=== PATIENT | female | born 1950 | race Caucasian/White ===

== ENCOUNTER 2020-07-23 09:55 | Outpatient (REF) | payer MEDICARE, SELFPAY ==
[2020-07-23 12:03] LABS: Alanine Aminotransferase 11 U/L (0-31); Albumin Level 4.2 g/dL (3.5-5.0); Alkaline Phosphatase 81 U/L (39-117); Anion Gap 14 (12-20); Aspartate Amino Transferase 14 U/L (5-31); Bilirubin Total 0.6 mg/dL (0.0-1.0); Blood Urea Nitrogen 14 mg/dL (9-16); Calcium 9.2 mg/dL (8.4-10.2); Carbon Dioxide 25 mmol/L (22-29); Chloride 105 mmol/L (96-108); Cholesterol 304 mg/dL; Estimated Glomerular Filt Rate > 60; Glucose Fasting 114 mg/dL (60-99); HDL Cholesterol 68 mg/dL; LDL Cholesterol Calculated 199 mg/dl; Potassium 5.2 mmol/L (3.3-5.1); Sodium 139 mmol/L (135-145); Total Protein 7.4 g/dL (6.5-8.0); Triglycerides 185 mg/dL
[2020-07-23 12:07] LABS: Thyroid Stimulating Hormone 4.27 uIU/mL (0.32-4.0)
== END 2020-07-23 09:56 | disposition home or self-care (01) ==
LOC: HO.HMGCLDS 09:55
PROVIDERS: PCP Internal Medicine; Visit Provider Internal Medicine
DX: E03.9 Hypothyroidism, unspecified (principal); E78.00 Pure hypercholesterolemia, unspecified
CPT/HCPCS: 36415; 80053; 80061; 84443

== ENCOUNTER 2021-01-29 09:15 | Outpatient (REF) | payer MEDICARE, SELFPAY ==
[2021-01-29 12:11] LABS: Alanine Aminotransferase 13 U/L (0-31); Alkaline Phosphatase 95 U/L (39-117); Anion Gap 16 (12-20); Aspartate Amino Transferase 17 U/L (5-31); Bilirubin Total 0.5 mg/dL (0.0-1.0); Blood Urea Nitrogen 16 mg/dL (9-16); Calcium 9.9 mg/dL (8.4-10.2); Carbon Dioxide 27 mmol/L (22-29); Chloride 103 mmol/L (96-108); Cholesterol 250 mg/dL; Estimated Glomerular Filt Rate > 60; Glucose Fasting 108 mg/dL (60-99); HDL Cholesterol 60 mg/dL; LDL Cholesterol Calculated 155 mg/dl; Potassium 4.8 mmol/L (3.3-5.1); Sodium 141 mmol/L (135-145); Total Protein 6.9 g/dL (6.5-8.0); Triglycerides 176 mg/dL
[2021-01-29 12:34] LABS: Vitamin D 25-OH Total 25.6 ng/mL (>30)
== END 2021-01-29 09:16 | disposition home or self-care (01) ==
LOC: HO.HMGCLDS 09:15
PROVIDERS: PCP Internal Medicine; Visit Provider Internal Medicine
DX: E78.00 Pure hypercholesterolemia, unspecified (principal); E03.9 Hypothyroidism, unspecified; E55.9 Vitamin D deficiency, unspecified
CPT/HCPCS: 36415; 80053; 80061; 82306; 84443

== ENCOUNTER 2021-04-11 08:27 | Outpatient (REF) | payer MEDICARE, SELFPAY ==
--- NOTE | ~2021-04-11 | MM_ITS ---
EXAMINATION: MM SCREENING DIGITAL BREAST TOMOSYNTHESIS, BILATERAL CLINICAL INFORMATION: Screening. Asymptomatic. The lifetime risk of breast cancer based on the Tyrer-Cuzick Model is 5%. COMPARISON: Mammography: 04/21/2019, 02/20/2018, 07/14/2016 TECHNIQUE: Digital breast tomosynthesis is performed in both the craniocaudal and mediolateral oblique views along with computer-aided detection (CAD). Synthesized 2D images are generated from the tomosynthesis. FINDINGS: There are scattered areas of fibroglandular density (ACR BI-RADS breast composition Category b). There are no significant masses, abnormal calcifications, or other abnormalities. No developing density or architectural abnormality. No significant changes. MM/MM tomosynthesis screening BI IMPRESSION: No mammographic evidence of malignancy. ASSESSMENT: BI-RADS 2: Benign RECOMMENDATION: Routine annual mammography screening. This patient's information was entered into a reminder system with a target due date for their next mammogram.
== END 2021-04-11 08:28 | disposition home or self-care (01) ==
LOC: HO.MAMMO 08:27
PROVIDERS: PCP Obstetrics & Gynecology; Visit Provider Internal Medicine
DX: Z12.31 Encounter for screening mammogram for malignant neoplasm of breast (principal)
CPT/HCPCS: 77063; 77067

== ENCOUNTER 2021-05-04 08:41 | Outpatient (REF) | payer MEDICARE, SELFPAY ==
--- NOTE | ~2021-05-04 | MM_ITS ---
EXAMINATION: BONE DENSITOMETRY CLINICAL INDICATION: Menopause. COMPARISON: Previous BD dated 09/19/2013 and baseline BD dated 12/03/2008. TECHNIQUE: Using a Arara DXA System (software version: 13.1) manufactured by [employer], dual-energy x-ray absorptiometry was performed of the lumbar spine and left hip. The images are of good technical quality. Summary results are attached. FINDINGS: AP SPINE L1-L4: Current: BMD 1.330 g/cm2, Z-score 2.2, T-score 1.2, normal, 5.9% increase from previous, 15.7% increase from baseline (<5% change is not significant). Prior: BMD 1.256 g/cm2. Baseline: BMD 1.150 g/cm2. LEFT FEMUR, NECK: Current: BMD 0.872 g/cm2, Z-score 0.1, T-score -1.2, osteopenia. Prior: BMD 0.943 g/cm2. Baseline: BMD 0.903 g/cm2. LEFT FEMUR, TOTAL: Current: BMD 0.955 g/cm2, Z-score 0.7, T-score -0.4, normal, 1.2% decrease from previous, 0.1% decrease from baseline (<5% change is not significant). Prior: BMD 0.967 g/cm2. Baseline: BMD 0.956 g/cm2. IDENTIFIED RISK FACTORS: Menopause. HISTORY OF FRACTURE: None listed. MEDICATIONS: Calcium, vitamin D. MM/XR DEXA axial skeleton IMPRESSION: 1. DIAGNOSIS: Osteopenia based on the lowest T-score value of -1.2 in the femoral neck applying World Health Organization criteria. 2. 10-YEAR FRACTURE RISK PREDICTION, FRAX: Major osteoporotic fracture (clinical spine, forearm, hip or shoulder) 9.5%. Hip fracture 1.3%. 3. Treatment Recommendations: NOF guidelines recommend consideration for treatment in postmenopausal women and men age 50 and older presenting with the following: -A hip or vertebral (clinical or morphometric) fracture. -T-score less than or equal to -2.5 at the femoral neck or spine after appropriate evaluation to exclude secondary causes. -Low bone mass at the hip or spine and a 10-year fracture probability by FRAX of greater than or equal to 3% for hip fracture or greater than or equal to 20% for major osteoporotic fracture based on the [place] adapted WHO algorithm. 4. Other Recommendations: All treatment decisions require clinical judgment and consideration of individual patient factors, including patient preferences, comorbidities, previous drug use, risk factors not captured in the FRAX model (e.g. frailty, falls, vitamin D deficiency, increased bone turnover, interval significant decline in bone density) and possible under or overestimation of fracture risk by FRAX. Additional medical evaluation for secondary cause of low bone mineral density may be appropriate. FUTURE SCAN RECOMMENDATION: People with diagnosed cases of osteoporosis or at high risk for fracture should have regular bone mineral density tests. For patients eligible for Medicare, routine testing is allowed once every 2 years. The testing frequency can be increased to one year for patients who have rapidly progressing disease, those who are receiving or discontinuing medical therapy to restore bone mass, or have additional risk factors.
== END 2021-05-04 08:42 | disposition home or self-care (01) ==
LOC: HO.MAMMO 08:41
PROVIDERS: PCP Internal Medicine; Visit Provider Obstetrics & Gynecology
DX: Z13.820 Encounter for screening for osteoporosis (principal); Z78.0 Asymptomatic menopausal state
CPT/HCPCS: 77080

== ENCOUNTER 2021-08-02 10:52 | Outpatient (REF) | payer MEDICARE, SELFPAY ==
[2021-08-02 13:47] LABS: MANUAL DIFF FLAG NO
[2021-08-02 13:50] LABS: Basophils Absolute Auto 0.1 X10*3/uL (0.0-0.2); Basophils Percent Auto 0.7 % (0-2); Eosinophils Absolute Auto 0.1 X10*3/uL (0.0-0.4); Eosinophils Percent Auto 1.1 % (0-4); Hemoglobin 14.7 g/dl (12.0-16.0); Imm Gran Abs Auto 0.03 X10*3/uL (0.00-0.03); Imm Gran Pct Auto 0.4 % (0.0-0.4); Lymphocytes Absolute Auto 2.5 X10*3/uL (1.2-4.9); Lymphocytes Percent Auto 30.7 % (20-40); Mean Corpuscular Hemoglobin 28.8 pg (27.0-33.0); Mean Corpuscular Volume 90.2 fL (80.0-98.0); Mean Platelet Volume 11.4 fL (9.4-12.3); Monocytes Absolute Auto 0.6 X10*3/uL (0.1-1.2); Monocytes Percent Auto 7.6 % (2-11); Neutrophils Absolute Auto 4.9 x10*3/uL (2.0-8.3); Neutrophils Percent Auto 59.5 % (45-73); Platelet Count 339 X10*3/uL (160-400); Red Cell Distribution Width 13.4 % (11.0-16.0); White Blood Count 8.3 X10*3/uL (4.8-10.8)
[2021-08-02 14:20] LABS: Alanine Aminotransferase 15 U/L (0-31); Albumin Level 4.1 g/dL (3.5-5.0); Alkaline Phosphatase 90 U/L (39-117); Anion Gap 14 (12-20); Aspartate Amino Transferase 15 U/L (5-31); Bilirubin Total 0.7 mg/dL (0.0-1.0); Blood Urea Nitrogen 15 mg/dL (9-16); Calcium 9.8 mg/dL (8.4-10.2); Carbon Dioxide 26 mmol/L (22-29); Chloride 104 mmol/L (96-108); Cholesterol 249 mg/dL; Estimated Glomerular Filt Rate > 60; Glucose Fasting 113 mg/dL (60-99); HDL Cholesterol 69 mg/dL; LDL Cholesterol Calculated 149 mg/dl; Potassium 5.2 mmol/L (3.3-5.1); Sodium 139 mmol/L (135-145); Total Protein 7.3 g/dL (6.5-8.0); Triglycerides 157 mg/dL
[2021-08-02 14:30] LABS: Thyroid Stimulating Hormone 0.52 uIU/mL (0.32-4.0); Vitamin D 25-OH Total 27.9 ng/mL (>30)
== END 2021-08-02 10:53 | disposition home or self-care (01) ==
LOC: HO.HMGCLDS 10:52
PROVIDERS: Visit Provider Internal Medicine
DX: E03.9 Hypothyroidism, unspecified (principal); E78.00 Pure hypercholesterolemia, unspecified; F32.9 Major depressive disorder, single episode, unspecified; G43.109 Migraine with aura, not intractable, without status migrainosus; E55.9 Vitamin D deficiency, unspecified
CPT/HCPCS: 36415; 80053; 80061; 82306; 84443; 85025

== ENCOUNTER → 2021-10-03 13:56 | Outpatient (BNVA) | payer MEDICARE, SELFPAY | PROVIDERS: PCP Internal Medicine; Referring Provider Internal Medicine; Visit Provider Internal Medicine Cardiovascular Disease | DX: I48.19 Other persistent atrial fibrillation (principal); R06.02 Shortness of breath | CPT/HCPCS: 93005; 99202 ==

== ENCOUNTER → 2021-10-07 07:29 | Outpatient (REF) | payer MEDICARE, SELFPAY ==
--- NOTE | 2021-10-07 07:36 | CA_ITS ---
Transthoracic Echocardiogram Patient (Last, First, Middle): Davida Taylor, Gender: Female Date of : 1950 Age: 71 Procedure Date: 10/07/2021 Procedure Type: Transthoracic Echocardiogram Location: OP Height: 172.72 cm Weight: 87.54 kg BSA: 2.01 m2 Heart Rate: bpm BP: 120 / 80 mmHg Store Consultant: LISA Referring MD: Tim Casas MD Rn Emergency Room: Tim Casas MD Symptoms: R06.02 - Shortness of breath Study Quality: Adequate ECG Rhythm: Sinus Conclusions: - 1. Normal LV systolic function with normal filling pressures 2. Moderate mitral and calcification with normal cardiac valvular Dopplers 3. No gross pericardial effusion Findings Left Ventricle Normal left ventricular size, thickness, and systolic function. The visually estimated ejection fraction is between 60-65%. Diastolic function is indeterminate on the basis of available data. Normal left ventricular filling pressures. Right Ventricle Normal right ventricular cavity size and systolic function. Atria The left atrium is likely dilated. There is no evidence of interatrial shunt. The right atrium is likely dilated. Aortic Valve The aortic valve structure and function is likely normal. There is no aortic valve stenosis. There is no aortic valve regurgitation. Mitral Valve There is mild anterior and moderate posterior mitral leaflet thickening. There is moderate mitral annular calcification. There is no mitral valve regurgitation. There is no mitral valve stenosis. Pulmonic Valve The pulmonic valve was not well visualized. Tricuspid Valve Likely normal tricuspid valve structure and function. Tricuspid regurgitation envelope is inadequate for calculation of right ventricular systolic pressure. Great Vessels All visible segments of the aorta are normal in size. The pulmonary artery was not well visualized. Venous The inferior vena cava is normal in size and collapses greater than 50% with inspiration. Pericardium/Pleural There is no evidence of pericardial effusion. Prior Study Comparison No prior study available for comparison. Measurements 2D Linear Measurements IVSd: 0.78 0.6-0.9/0.6-1.0 cm LVIDd: 3.90 3.9-5.3/4.2-5.9 cm LVIDd Index: 1.94 2.4-3.2/2.2-3.1 cm/m2 LVIDs: 2.64 2.0-3.6 cm LVPWd: 0.83 0.7-1.1 cm LA Diam: 4.10 2.7-3.8/3.0-4.0 cm LAIDs Index: 2.04 1.5-2.3 cm/m2 LV Mass: 112.66 67-162/88-224 g LV Mass Index: 56.05 43-95/49-115 g/m2 LVOT Diam: 1.90 3.0+(-)1.3 cm 2D Systolic Function EF 4C: 68.60 >55% EF 2C: 59.60 >55% EF BiP: 62.70 >55% Mitral Valve MV Pk E: 1.07 MV Decel Time: 165.00 E'Lateral: 15.80 E'Medial: 10.30 E/E' Med: 10.40 E/E' Lat: 6.80 PHT: 48.00 MVA PHT: 4.58 Decel Sheridan: 6.47 Aortic Valve AoV Pk Moo: 1.28 AoV Mn Moo: 0.94 AoV VTI: 0.26 AoV Pk Grad: 7.00 Aov Mn Grad: 4.00 CAROLYN Cont.VTI: 2.09 LVOT LVOT Pk Moo: 0.86 LVOT Mn Moo: 0.65 LVOT VTI: 0.19 LVOT Pk Grad: 3.00 LVOT Mn Grad: 2.00 LVOT Diam: 1.90 LVOT Area: 2.84 Diastolic Function MV Pk E: 1.07 E'Medial: 10.30 E/E' Med: 10.40 E' Laterial: 15.80 E/E' Lat: 6.80 Right Ventricle TAPSE (mm): 21.90 TVS' Moo: 8.50 Tricuspid Valve RA Press: 3.00 Great Vessels Aorta Sinus of Valsalva: 2.98 2.0-3.[address] Ridge: 2.64 1.7-3.4 cm Ao Asc: 3.30 2.1-3.4 cm Pulmonary Valve PV Pk Moo: 0.86 Peak PV Grad: 3.00 Updated in Other Vendor System with Status of Final Tim Casas MD electronically signed on 10/08/2021 2:17:35 PM with status of Final
--- NOTE | 2021-10-07 07:36 | HM_ITS ---
Conclusion: 1. Patient was monitor for total period of 2 days and 23 hours 2. Baseline rhythm is atrial fibrillation with average heart of 85 beats per minute with adequate rate control 3. No pauses or bradycardia noted 4. Rare PVCs noted 5. One patient reported event correlated with atrial fibrillation controlled ventricular response MTDD
== END ==
LOC: HO.CARD 07:29
PROVIDERS: PCP Internal Medicine; Visit Provider Internal Medicine Cardiovascular Disease
DX: I48.19 Other persistent atrial fibrillation (principal); R06.02 Shortness of breath
CPT/HCPCS: 93242; 93306

== ENCOUNTER → 2021-10-10 07:53 | Outpatient (REF) | payer MEDICARE, SELFPAY ==
--- NOTE | ~2021-10-10 | NM_ITS ---
Myocardial perfusion study Indication: Shortness of breath evaluate for myocardial ischemia Technique: The patient was brought in for a Lexiscan perfusion study on 10/10/2021. Patient performed low-level exercise and was injected 0.4 mg of Lexiscan intravenously. Within a minute of injection, 30 mCi of sestamibi was given intravenously. Images were obtained using the SPECT gamma camera interlaced with the gating device. Images were obtained in supine position. Resting perfusion study was performed on 10/11/2021. Patient was administered 30 mCi of sestamibi intravenously at rest. Images were then obtained in supine position. Images obtained with and without CT attenuation. Total DLP 95 mGy-cm. Images were processed with the software and compared side to side in short axis, horizontal long axis and vertical long axis views. Findings: The stress perfusion study showed non attenuated images show minimal reduction in the anterior wall. Remainder of the LV myocardium is normally perfused. Attenuation corrected images show overall normal uptake of radiotracer in all segments of LV myocardium. There is suggestion of left ventricle hypertrophy.. The gated study shows normal LV systolic function with calculated LVEF of greater than 70 %. LV cavity is normal in size. The gated study shows normal systolic wall thickening and contraction of segments. Resting study shows no change in perfusion pattern compared to stress perfusion study. Gating at rest reveals normal systolic wall motion with ejection fraction at 71%. The findings are consistent with normal myocardial perfusion. NM/NM jluis perf SPECT rest & str Impression: 1. Myocardial perfusion imaging study shows normal myocardial perfusion 2. Gated LVEF is greater than 70% 3. Transient ischemic dilatation not present EKG is nondiagnostic for ischemia
--- NOTE | 2021-10-10 07:55 | CA_ITS ---
Acquisition Time: 2021-10-10 08:06:05 Total Exercise Time: 00:02:00 Test Indications: Abnormal ECG Medications: SEE H Protocol: LEXISCAN Max HR: 113 BPM 76% of Pred: 147 BPM Max BP: 128/066 mmHG Max Work Load: 1.0 METS Pharmacological stress test with Lexiscan injection, while sitting and kicking her legs, with mild sob, no chest discomfort, without arrythmia, with normotensive response to injection, with nondiagnostic EKG for ischemia. Nuclear images pending. Test reviewed with Dr Baker. Referred By: Tim Casas Overread By: LEYLA WILKS
== END ==
LOC: HO.CARD 07:53
PROVIDERS: Visit Provider Internal Medicine
DX: R06.02 Shortness of breath (principal)
CPT/HCPCS: 78452; 93017; A9500; J0280; J2785

== ENCOUNTER → 2021-11-02 13:44 | Outpatient (BNVA) | payer MEDICARE, SELFPAY | PROVIDERS: PCP Internal Medicine; Referring Provider Internal Medicine; Visit Provider Internal Medicine Cardiovascular Disease | DX: I48.19 Other persistent atrial fibrillation (principal) | CPT/HCPCS: 99212 ==

== ENCOUNTER 2021-11-09 12:52 | Day surgery (SDC) | payer MEDICARE, SELFPAY ==
--- NOTE | 2021-11-08 10:43 | P.CONAN_ITS ---
Documented by User: Nayana Santo NP 11/08/21 10:46 HPI - Anesthesia Eval Consult details Narrative: 71yo F for Cardioversion *Multiple Med Allergies* PMFSH Active Problems Active Problems: All Active Problems (Updated 10/03/21 @ 14:32 by Tim Casas MD) Persistent atrial fibrillation (Acute) SOB (shortness of breath) on exertion (Acute) Past Medical History Medical History Persistent atrial fibrillation Family History Family History Father CAD (coronary artery disease) Afib Mother Afib Brother Afib Surgical History Surgical History History of colon resection Social History Social History Patient Tobacco Use Status: Former Tobacco user Advance Directives: No Advance Directives Information Provided: Yes Meds Allergies Allergy/AdvReac Type Severity Reaction Status Date / Time amoxicillin [From AUGMENTIN] Allergy Unknown SEVERE Unverified 02/12/20 17:43 SHARRON-RECTAL REDNESS,INFLAMMATION aspirin [ASPIRIN] Allergy Unknown FACIAL Unverified 02/12/20 17:43 SWELLING clavulanic acid Allergy Unknown SEVERE Unverified 02/12/20 17:43 [From AUGMENTIN] SHARRON-RECTAL REDNESS,INFLAMMATION ibuprofen Allergy Unknown anaphylaxis Verified 05/01/14 00:00 Iodinated Contrast Media Allergy Unknown RASH,SOB Unverified 02/12/20 17:43 [IV CONTRAST] [id number]-NSC-XgO Reductase Allergy Unknown MUSCLE Unverified 02/12/20 17:43 Inhibitor ACHING [[id number] REDUCTASE INHIBITOR] Sulfa (Sulfonamide Allergy Unknown RASH,SOB Unverified 02/12/20 17:43 Antibiotics) [SULFA (SULFONAMIDE ANTIBIOTICS)] animal dander Allergy Unknown Uncoded 05/01/14 00:00 IVP dye Allergy Unknown rash Uncoded 05/01/14 00:00 pollen Allergy Unknown Uncoded 05/01/14 00:00 shellfish Allergy Unknown breathing Uncoded 05/01/14 00:00 difficulty, rash sulfa Allergy Unknown breathing Uncoded 05/01/14 00:00 problems, angioedema Home Medications Medication Instructions Recorded Confirmed Last Taken Type albuterol sulfate 90 mcg/actuation 0 mcg inhalation 10/03/21 11/02/21 Unknown History aerosol inhaler clonazepam 0.5 mg tablet 0.25 mg PO BEDTIME 10/03/21 11/02/21 Unknown History fluticasone 250 mcg-salmeterol 50 1 ea PO BID 10/03/21 11/02/21 Unknown History mcg/dose blistr powdr for inhalation (Lisa Inhub) levothyroxine 175 mcg tablet 175 mcg PO DAILY 10/03/21 11/02/21 Unknown History pantoprazole 40 mg tablet,delayed 40 mg PO DAILY 10/03/21 11/02/21 Unknown History release sertraline 50 mg tablet 50 mg PO DAILY 10/03/21 11/02/21 Unknown History solifenacin 10 mg tablet 10 mg PO DAILY 10/03/21 11/02/21 Unknown History Exam Exam Date and Time: November 08, 2021 1043 Pertinent Lab Results Pertinent Lab Results: Laboratory Tests 08/02/21 08/02/21 11:01 11:01 WBC 8.3 Hgb 14.7 Hct 46.0 Plt Count 339 Sodium 139 Potassium 5.2 H Chloride 104 Carbon Dioxide 26 BUN 15 Creatinine 0.78 Narrative Narrative: EKG 09/2021 atrial fibrillation with heart rate of [address] T wave changes NM jluis perf SPECT rest & str 09/2021 Impression: ? 1.? Myocardial perfusion imaging study shows normal myocardial perfusion 2.? Gated LVEF is greater than 70% 3. Transient ischemic dilatation not present ? EKG is nondiagnostic for ischemia ECHO 09/2021 Conclusions: - 1.? Normal LV systolic function with normal filling pressures? 2.? Moderate mitral and calcification with normal cardiac? valvular Dopplers? 3. No gross pericardial effusion ? Findings Left Ventricle Normal left ventricular size, thickness, and systolic function. The visually estimated ejection fraction is between 60-65%.? Diastolic function is indeterminate on the basis of available data.? Normal left ventricular filling pressures. Holter 09/2021 Conclusion: 1. Patient was monitor for total period of 2 days and 23 hours 2. Baseline rhythm is atrial fibrillation with average heart of 85 beats per minute with adequate rate control 3. No pauses or bradycardia noted 4. Rare PVCs noted 5. One patient reported event correlated with atrial fibrillation controlled ventricular response Assessment and Plan Assessment Anesthesia Assessment: Chart Reviewed Documented by User: Jeannine Zelaya MD 11/09/21 13:20 [facility] Past Medical History Medical History Persistent atrial fibrillation Family History Family History Father CAD (coronary artery disease) Afib Mother Afib Brother Afib Family history of problems with anesthesia: No Surgical History Surgical History History of colon resection History of Problems with Anesthesia: No Social History Social History Patient Tobacco Use Status: Former Tobacco user Advance Directives: No Advance Directives Information Provided: Yes Meds Allergies Allergy/AdvReac Type Severity Reaction Status Date / Time amoxicillin [From AUGMENTIN] Allergy Unknown SEVERE Unverified 02/12/20 17:43 SHARRON-RECTAL REDNESS,INFLAMMATION aspirin [ASPIRIN] Allergy Unknown FACIAL Unverified 02/12/20 17:43 SWELLING clavulanic acid Allergy Unknown SEVERE Unverified 02/12/20 17:43 [From AUGMENTIN] SHARRON-RECTAL REDNESS,INFLAMMATION ibuprofen Allergy Unknown anaphylaxis Verified 05/01/14 00:00 Iodinated Contrast Media Allergy Unknown RASH,SOB Unverified 02/12/20 17:43 [IV CONTRAST] Uxzklfh-[id number]-PmO Reductase Allergy Unknown MUSCLE Unverified 02/12/20 17:43 Inhibitor ACHING [[id number] REDUCTASE INHIBITOR] Sulfa (Sulfonamide Allergy Unknown RASH,SOB Unverified 02/12/20 17:43 Antibiotics) [SULFA (SULFONAMIDE ANTIBIOTICS)] animal dander Allergy Unknown Uncoded 05/01/14 00:00 IVP dye Allergy Unknown rash Uncoded 05/01/14 00:00 pollen Allergy Unknown Uncoded 05/01/14 00:00 shellfish Allergy Unknown breathing Uncoded 05/01/14 00:00 difficulty, rash sulfa Allergy Unknown breathing Uncoded 05/01/14 00:00 problems, angioedema Home Medications Medication Instructions Recorded Confirmed Last Taken Type albuterol sulfate 90 mcg/actuation 0 mcg inhalation 10/03/21 11/02/21 Unknown History aerosol inhaler clonazepam 0.5 mg tablet 0.25 mg PO BEDTIME 10/03/21 11/02/21 Unknown History fluticasone 250 mcg-salmeterol 50 1 ea PO BID 10/03/21 11/02/21 Unknown History mcg/dose blistr powdr for inhalation (Lisa Inhub) levothyroxine 175 mcg tablet 175 mcg PO DAILY 10/03/21 11/02/21 Unknown History pantoprazole 40 mg tablet,delayed 40 mg PO DAILY 10/03/21 11/02/21 Unknown History release sertraline 50 mg tablet 50 mg PO DAILY 10/03/21 11/02/21 Unknown History solifenacin 10 mg tablet 10 mg PO DAILY 10/03/21 11/02/21 Unknown History Exam Airway Mallampati Class: II (Bride and caps laterally) TM Dist: >3cm Neck ROM: Full Heart: irreg Lungs: cta Assessment and Plan Assessment Anesthesia Assessment: Anesthesia Plan Discussed and Chart Reviewed Final Anesthetic Review Family History of Problems with Anesthesia: No History of Problems with Anesthesia: No NPO: Yes ASA Class: II Final Preanesthetic Review: No Changes in Pt Med Stat, Meds/Allgs Chart Reviewed and Consent Obtained/Reviewed Patient Risk: Intermediate Procedure Risk: Intermediate Anesthetic Plan Anesthetic Plan: MAC: Disposition: Standard PACU
[2021-11-09 13:11] VITALS: BP 149/98; PULSE 92; RESP 18; TEMP 36.7; O2SAT 97; BMI 30.1
--- NOTE | 2021-11-09 13:14 | MHC.SHP ---
Pre-Procedural Eval Section A Date of Service: 11/09/21 The patient is an INPATIENT: No Changes since office visit: Yes Patient answered all questions; No Cold of Flu in the past 2 weeks, No New Medical Problems and No Changes in Medication The History & Physical has been completed within 30 days and I have reviewed it.: Yes Section B Chief Complaint: a-fib Allergies: Allergies Allergy/AdvReac Type Severity Reaction Status Date / Time amoxicillin [From AUGMENTIN] Allergy Unknown SEVERE Unverified 02/12/20 17:43 SHARRON-RECTAL REDNESS,INFLAMMATION aspirin [ASPIRIN] Allergy Unknown FACIAL Unverified 02/12/20 17:43 SWELLING clavulanic acid Allergy Unknown SEVERE Unverified 02/12/20 17:43 [From AUGMENTIN] SHARRON-RECTAL REDNESS,INFLAMMATION ibuprofen Allergy Unknown anaphylaxis Verified 05/01/14 00:00 Iodinated Contrast Media Allergy Unknown RASH,SOB Unverified 02/12/20 17:43 [IV CONTRAST] Gijsili-KAT-OqV Reductase Allergy Unknown MUSCLE Unverified 02/12/20 17:43 Inhibitor ACHING [[id number] REDUCTASE INHIBITOR] Sulfa (Sulfonamide Allergy Unknown RASH,SOB Unverified 02/12/20 17:43 Antibiotics) [SULFA (SULFONAMIDE ANTIBIOTICS)] animal dander Allergy Unknown Uncoded 05/01/14 00:00 IVP dye Allergy Unknown rash Uncoded 05/01/14 00:00 pollen Allergy Unknown Uncoded 05/01/14 00:00 shellfish Allergy Unknown breathing Uncoded 05/01/14 00:00 difficulty, rash sulfa Allergy Unknown breathing Uncoded 05/01/14 00:00 problems, angioedema Plan I have reviewed the history and physical and performed a pertinent physical examination on my patient. No changes have occurred unless specified.
[2021-11-09] MEDS: Lactated Ringers 1,000 ML 50 ML IVCONT (13:33)
--- NOTE | 2021-11-09 13:49 | ECG_ITS ---
Test Reason : POST CARDIOVERSION Blood Pressure : / mmHG Vent. Rate : 070 BPM Atrial Rate : 070 BPM P-R Int : 218 ms QRS Dur : 060 ms QT Int : 418 ms P-R-T Axes : 062 022 040 degrees QTc Int : 451 ms Sinus rhythm with 1st degree A-V block Otherwise normal ECG No previous ECGs available Referred By: Tim Casas Electronically Signed By:Henrry De Paz
--- NOTE | 2021-11-09 13:49 | HO.CARDIVERS ---
Cardioversion Procedure Note Cardioversion Date of Procedure: Today Ordering Provider: Myself Performing Provider: Myself Indication for Procedure: Persistent symptomatic atrial fibrillation Pre-Op Diagnosis: Same Post-Op Diagnosis: Sinus rhythm Performed with Transesophageal Echo: No History: See my office note Consent: Verbal and Written consent was obtained from the patient before starting and confirming oral anticoagulation use. The patient was made aware of the risk of synchronized cardioversion including benefits, alternatives 2nd opinion Procedure: After consent obtained, cardioversion pads were attached in anteroposterior configuration and the patient was sedated by the anesthesia team. Once adequate sedation achieved, patient was delivered 200 joules of biphasic synchronized energy in anteroposterior configuration Complications: None Impression: Successful conversion to sinus rhythm Recommendations: 1. 12 lead EKG 2. Continue full oral anticoagulation 3. Follow up in the office after Holter monitor
[2021-11-09 13:51] VITALS: BP 138/91; PULSE 78; RESP 22; TEMP 36.6; O2SAT 95
[2021-11-09 13:56] VITALS: BP 128/77; PULSE 70; RESP 20; O2SAT 99
[2021-11-09 14:06] VITALS: BP 130/85; PULSE 70; RESP 18; O2SAT 97
[2021-11-09 14:21] VITALS: BP 141/81; PULSE 68; RESP 18; TEMP 36.6; O2SAT 98
== END 2021-11-09 14:58 | disposition home or self-care (01) ==
PROVIDERS: PCP Internal Medicine; Visit Provider Internal Medicine Cardiovascular Disease
PROC: 5A2204Z Restoration of Cardiac Rhythm, Single (ICD-10-PCS; principal; 2021-11-09 14:40)
DX: I48.19 Other persistent atrial fibrillation (principal); R06.02 Shortness of breath; Z79.01 Long term (current) use of anticoagulants; Z87.891 Personal history of nicotine dependence; Z90.49 Acquired absence of other specified parts of digestive tract; Z88.1 Allergy status to other antibiotic agents; Z88.2 Allergy status to sulfonamides; Z88.8 Allergy status to other drugs, medicaments and biological substances; Z91.041 Radiographic dye allergy status
CPT/HCPCS: 92960; 93005

== ENCOUNTER → 2021-11-23 11:01 | Outpatient (REF) | payer MEDICARE, SELFPAY ==
--- NOTE | 2021-11-23 11:03 | HM_ITS ---
Conclusion: 1. Patient was monitored for total period of 3 days and 14 hours 2. Baseline rhythm is atrial fibrillation with average heart of 87 beats per minute, with adequate rate control 3. No significant pauses or bradycardia noted 4. Very rare PVCs noted next 5. No patient reported events MTDD
== END ==
LOC: HO.CARD 11:01
PROVIDERS: PCP Internal Medicine; Visit Provider Internal Medicine Cardiovascular Disease
DX: I48.19 Other persistent atrial fibrillation (principal)
CPT/HCPCS: 93242

== ENCOUNTER 2021-11-24 08:58 | Outpatient (REF) | payer MEDICARE, SELFPAY ==
[2021-11-24 11:33] LABS: MANUAL DIFF FLAG NO
[2021-11-24 11:48] LABS: Basophils Absolute Auto 0.1 X10*3/uL (0.0-0.2); Basophils Percent Auto 0.7 % (0-2); Eosinophils Absolute Auto 0.2 X10*3/uL (0.0-0.4); Eosinophils Percent Auto 2.5 % (0-4); Hematocrit 44.2 % (37.0-47.0); Hemoglobin 14.4 g/dl (12.0-16.0); Imm Gran Abs Auto 0.04 X10*3/uL (0.00-0.03); Imm Gran Pct Auto 0.4 % (0.0-0.4); Lymphocytes Absolute Auto 2.3 X10*3/uL (1.2-4.9); Lymphocytes Percent Auto 24.3 % (20-40); Mean Corpuscular HGB Conc 32.6 g/dl (31.0-35.0); Mean Corpuscular Hemoglobin 29.9 pg (27.0-33.0); Mean Corpuscular Volume 91.7 fL (80.0-98.0); Mean Platelet Volume 11.2 fL (9.4-12.3); Monocytes Absolute Auto 0.7 X10*3/uL (0.1-1.2); Monocytes Percent Auto 7.2 % (2-11); Neutrophils Absolute Auto 6.1 x10*3/uL (2.0-8.3); Neutrophils Percent Auto 64.9 % (45-73); Platelet Count 366 X10*3/uL (160-400); Red Blood Count 4.82 X10*6/uL (4.20-5.50); Red Cell Distribution Width 12.8 % (11.0-16.0); White Blood Count 9.4 X10*3/uL (4.8-10.8)
[2021-11-24 12:16] LABS: Alanine Aminotransferase 12 U/L (0-31); Albumin Level 4.1 g/dL (3.5-5.0); Alkaline Phosphatase 92 U/L (39-117); Anion Gap 13 (12-20); Aspartate Amino Transferase 15 U/L (5-31); Bilirubin Total 0.7 mg/dL (0.0-1.0); Blood Urea Nitrogen 14 mg/dL (9-16); Calcium 9.3 mg/dL (8.4-10.2); Carbon Dioxide 27 mmol/L (22-29); Chloride 105 mmol/L (96-108); Cholesterol 258 mg/dL; Estimated Glomerular Filt Rate > 60; Glucose Fasting 102 mg/dL (60-99); HDL Cholesterol 65 mg/dL; LDL Cholesterol Calculated 161 mg/dl; Potassium 4.9 mmol/L (3.3-5.1); Sodium 140 mmol/L (135-145); Total Protein 7.2 g/dL (6.5-8.0); Triglycerides 161 mg/dL
[2021-11-24 12:21] LABS: Thyroid Stimulating Hormone 0.45 uIU/mL (0.32-4.0); Vitamin D 25-OH Total 26.8 ng/mL (>30)
== END 2021-11-24 08:59 | disposition home or self-care (01) ==
LOC: HO.HMGCLDS 08:58
PROVIDERS: PCP Internal Medicine; Visit Provider Internal Medicine
DX: E78.00 Pure hypercholesterolemia, unspecified (principal); E03.9 Hypothyroidism, unspecified; E55.9 Vitamin D deficiency, unspecified
CPT/HCPCS: 36415; 80053; 80061; 82306; 84443; 85025

== ENCOUNTER → 2021-12-19 13:23 | Outpatient (BNVA) | payer MEDICARE, SELFPAY | PROVIDERS: PCP Internal Medicine; Referring Provider Internal Medicine; Visit Provider Internal Medicine Cardiovascular Disease | DX: I48.19 Other persistent atrial fibrillation (principal) | CPT/HCPCS: 93005; 99212 ==

== ENCOUNTER 2021-12-21 09:28 | Day surgery (SDC) | payer MEDICARE, SELFPAY ==
[2021-12-21 09:54] VITALS: BMI 28.8
--- NOTE | 2021-12-21 10:11 | P.CONAN_ITS ---
[facility] Active Problems Active Problems: All Active Problems (Updated 10/03/21 @ 14:32 by Tim Casas MD) Persistent atrial fibrillation (Acute) SOB (shortness of breath) on exertion (Acute) Past Medical History Medical History Persistent atrial fibrillation Family History Family History Father CAD (coronary artery disease) Afib Mother Afib Brother Afib Family history of problems with anesthesia: No Surgical History Surgical History History of colon resection History of Problems with Anesthesia: No Social History Social History Patient Tobacco Use Status: Former Tobacco user Quit Date: 12 years ago Tobacco use type: Cigarette Smoked in Last 30 Days: No Use of substances other than those prescribed or required for medical reasons: No Are you DNR?: No Advance Directives: No Advance Directives Information Provided: Yes Recently lost weight without trying: No Nutrition Risks: No Nutritional Risk Meds Allergies Allergy/AdvReac Type Severity Reaction Status Date / Time amoxicillin [From AUGMENTIN] Allergy Unknown SEVERE Verified 12/21/21 09:51 SHARRON-RECTAL REDNESS,INFLAMMATION aspirin [ASPIRIN] Allergy Unknown FACIAL Verified 12/21/21 09:51 SWELLING clavulanic acid Allergy Unknown SEVERE Verified 12/21/21 09:51 [From AUGMENTIN] SHARRON-RECTAL REDNESS,INFLAMMATION ibuprofen Allergy Unknown anaphylaxis Verified 05/01/14 00:00 Iodinated Contrast Media Allergy Unknown RASH,SOB Verified 12/21/21 09:51 [IV CONTRAST] Tzgbxwp-TOY-XsT Reductase Allergy Unknown MUSCLE Verified 12/21/21 09:51 Inhibitor ACHING [RKEFORP-JDI-UOM REDUCTASE INHIBITOR] Sulfa (Sulfonamide Allergy Unknown RASH,SOB, Verified 12/21/21 09:51 Antibiotics) ANGIOEDEMA [SULFA (SULFONAMIDE ANTIBIOTICS)] animal dander Allergy Unknown Unknown Uncoded 12/20/21 12:10 pollen Allergy Unknown Unknown Uncoded 12/20/21 12:10 shellfish Allergy Unknown breathing Uncoded 05/01/14 00:00 difficulty, rash Active Medications: Current Medications Lactated Ringer's (Lr) 1,000 mls @ 50 mls/hr IVCONT .Q20H MELANIA Home Medications Medication Instructions Recorded Confirmed Last Taken Type albuterol sulfate 90 mcg/actuation 0 mcg inhalation 10/03/21 12/19/21 Unknown History aerosol inhaler clonazepam 0.5 mg tablet 0.25 mg PO BEDTIME PRN Insomnia 10/03/21 12/19/21 Unknown History levothyroxine 175 mcg tablet 175 mcg PO DAILY 10/03/21 12/19/21 12/21/21 History pantoprazole 40 mg tablet,delayed 40 mg PO DAILY PRN 10/03/21 12/19/21 Unknown History release sertraline 50 mg tablet 50 mg PO DAILY 10/03/21 12/21/21 12/21/21 History fluticasone 250 mcg-salmeterol 50 1 puff inhalation BID 12/21/21 12/21/21 12/21/21 History mcg/dose blistr powdr for inhalation (Lisa Jackson) Exam Exam Date and Time: December 21, 2021 1011 Height,Weight and Vital Signs: Height 5 ft 8 in Weight 86.183 kg Airway Mallampati Class: II (Permanent top/bottom bridge) TM Dist: >3cm Neck ROM: Full Heart: irreg Lungs: cta Assessment and Plan Assessment Anesthesia Assessment: Anesthesia Plan Discussed and Chart Reviewed Final Anesthetic Review Family History of Problems with Anesthesia: No History of Problems with Anesthesia: No NPO: Yes ASA Class: II Final Preanesthetic Review: No Changes in Pt Med Stat, Meds/Allgs Chart Reviewed and Consent Obtained/Reviewed Patient Risk: Intermediate Procedure Risk: Intermediate Anesthetic Plan Anesthetic Plan: MAC: Disposition: Standard PACU
--- NOTE | 2021-12-21 10:14 | MHC.SHP ---
Pre-Procedural Eval Section A Date of Service: 12/21/21 The patient is an INPATIENT: No Changes since office visit: Yes Patient answered all questions; No Cold of Flu in the past 2 weeks, No New Medical Problems and No Changes in Medication Section B Chief Complaint: afib Allergies: Allergies Allergy/AdvReac Type Severity Reaction Status Date / Time amoxicillin [From AUGMENTIN] Allergy Unknown SEVERE Verified 12/21/21 09:51 SHARRON-RECTAL REDNESS,INFLAMMATION aspirin [ASPIRIN] Allergy Unknown FACIAL Verified 12/21/21 09:51 SWELLING clavulanic acid Allergy Unknown SEVERE Verified 12/21/21 09:51 [From AUGMENTIN] SHARRON-RECTAL REDNESS,INFLAMMATION ibuprofen Allergy Unknown anaphylaxis Verified 05/01/14 00:00 Iodinated Contrast Media Allergy Unknown RASH,SOB Verified 12/21/21 09:51 [IV CONTRAST] Bdomsjm-MMD-EwC Reductase Allergy Unknown MUSCLE Verified 12/21/21 09:51 Inhibitor ACHING [GLQMULA-LBA-QZT REDUCTASE INHIBITOR] Sulfa (Sulfonamide Allergy Unknown RASH,SOB, Verified 12/21/21 09:51 Antibiotics) ANGIOEDEMA [SULFA (SULFONAMIDE ANTIBIOTICS)] animal dander Allergy Unknown Unknown Uncoded 12/20/21 12:10 pollen Allergy Unknown Unknown Uncoded 12/20/21 12:10 shellfish Allergy Unknown breathing Uncoded 05/01/14 00:00 difficulty, rash Plan I have reviewed the history and physical and performed a pertinent physical examination on my patient. No changes have occurred unless specified.
[2021-12-21] MEDS: Lactated Ringers 1,000 ML 50 ML IVCONT (10:16)
[2021-12-21 10:46] VITALS: BP 167/85; PULSE 81; RESP 22; TEMP 37.1; O2SAT 96
--- NOTE | 2021-12-21 10:46 | ECG_ITS ---
Test Reason : CARDIOVERSION Blood Pressure : / mmHG Vent. Rate : 074 BPM Atrial Rate : 074 BPM P-R Int : 210 ms QRS Dur : 072 ms QT Int : 414 ms P-R-T Axes : 054 038 042 degrees QTc Int : 459 ms Sinus rhythm with 1st degree A-V block Otherwise normal ECG When compared with ECG of 09-NOV-2021 13:54, No significant change was found Referred By: Tim Casas Electronically Signed By:AMY IRIZARRY
--- NOTE | 2021-12-21 10:47 | HO.CARDIVERS ---
Cardioversion Procedure Note Cardioversion Date of Procedure: Today Ordering Provider: Myself Performing Provider: Myself Indication for Procedure: Symptomatic recurrent persistent atrial fibrillation Pre-Op Diagnosis: Same Post-Op Diagnosis: Normal sinus rhythm Performed with Transesophageal Echo: No Consent: Verbal and Written consent was obtained from the patient before starting and confirming oral anticoagulation as well as antiarrhythmic use. The patient was made aware of the risk of synchronized cardioversion including benefits, alternatives and 2nd opinion Procedure: After consent obtained, cardioversion pads were attached in AP configuration and the patient was sedated by the anesthesia team. Once adequate sedation achieved, patient was delivered 200 joules of biphasic synchronized energy in anteroposterior configuration Complications: None Impression: Successful conversion to sinus rhythm Recommendations: 1. Twelve lead EKG 2. Continue Multaq and Xarelto 3. Will follow up in the office after Holter monitor
[2021-12-21 10:51] VITALS: BP 119/64; PULSE 73; RESP 16; O2SAT 97
[2021-12-21 10:56] VITALS: BP 115/61; PULSE 72; RESP 16; O2SAT 96
[2021-12-21 11:01] VITALS: BP 120/71; PULSE 73; RESP 17; O2SAT 97
[2021-12-21 11:16] VITALS: BP 121/70; PULSE 74; RESP 18; TEMP 36.4; O2SAT 98
== END 2021-12-21 12:00 | disposition home or self-care (01) ==
PROVIDERS: PCP Internal Medicine; Visit Provider Internal Medicine Cardiovascular Disease
PROC: 5A2204Z Restoration of Cardiac Rhythm, Single (ICD-10-PCS; principal; 2021-12-21 10:30)
DX: I48.19 Other persistent atrial fibrillation (principal); Z79.01 Long term (current) use of anticoagulants; Z88.1 Allergy status to other antibiotic agents; Z88.2 Allergy status to sulfonamides; Z88.8 Allergy status to other drugs, medicaments and biological substances; Z91.041 Radiographic dye allergy status; Z87.891 Personal history of nicotine dependence
CPT/HCPCS: 92960; 93005

== ENCOUNTER → 2021-12-27 09:05 | Outpatient (BNVA) | payer MEDICARE, SELFPAY | PROVIDERS: PCP Internal Medicine; Visit Provider Internal Medicine Cardiovascular Disease | DX: I48.19 Other persistent atrial fibrillation (principal) | CPT/HCPCS: 93005; 99212 ==

== ENCOUNTER 2021-12-30 13:49 | Outpatient (REF) | payer MEDICARE, SELFPAY ==
--- NOTE | ~2021-12-30 | XR_ITS ---
EXAMINATION: XR CHEST CLINICAL INFORMATION: Persistent atrial fibrillation COMPARISON: None TECHNIQUE: 2 views of the chest were obtained. FINDINGS: The lungs are well-expanded and clear of acute process. The heart size and pulmonary vascularity is normal. There is moderate spondylosis of dorsal spine. No lytic process XR/XR chest 2V IMPRESSION: Unremarkable chest exam.
[2021-12-30 14:47] LABS: Alanine Aminotransferase 14 U/L (0-31); Albumin Level 4.2 g/dL (3.5-5.0); Alkaline Phosphatase 115 U/L (39-117); Aspartate Amino Transferase 14 U/L (5-31); Bilirubin Direct 0.2 mg/dL (0.0-0.5); Bilirubin Total 0.5 mg/dL (0.0-1.0); Total Protein 7.4 g/dL (6.5-8.0)
[2021-12-30 15:08] LABS: TSH reflex Free T4 0.26 uIU/mL (0.32-4.0)
[2021-12-30 15:41] LABS: Free T4 (Free Thyroxine) 1.75 ng/dL (0.71-1.85)
== END 2021-12-30 13:50 | disposition home or self-care (01) ==
LOC: HO.LAB 13:49
PROVIDERS: PCP Internal Medicine; Visit Provider Internal Medicine Cardiovascular Disease
DX: I48.19 Other persistent atrial fibrillation (principal)
CPT/HCPCS: 36415; 71046; 80076; 84439; 84443

== ENCOUNTER → 2022-01-11 12:07 | Day surgery (SDC) | payer MEDICARE, SELFPAY ==
--- NOTE | 2022-01-10 09:34 | P.CONAN_ITS ---
HPI - Anesthesia Eval Consult details Narrative: 71yo F for Cardioversion *Multiple Med Allergies* Xarelto for afib s/p Cardioversion 11/2021 COUNT INCLUDES THE [facility] Active Problems Active Problems: All Active Problems (Updated 10/03/21 @ 14:32 by Tim Casas MD) Persistent atrial fibrillation (Acute) SOB (shortness of breath) on exertion (Acute) Past Medical History Medical History Persistent atrial fibrillation Family History Family History Father CAD (coronary artery disease) Afib Mother Afib Brother Afib Family history of problems with anesthesia: No Surgical History Surgical History History of colon resection History of Problems with Anesthesia: No Social History Social History Patient Tobacco Use Status: Former Tobacco user Quit Date: 12 years ago Tobacco use type: Cigarette Meds Allergies Allergy/AdvReac Type Severity Reaction Status Date / Time amoxicillin [From AUGMENTIN] Allergy Unknown SEVERE Verified 12/21/21 09:51 SHARRON-RECTAL REDNESS,INFLAMMATION aspirin [ASPIRIN] Allergy Unknown FACIAL Verified 12/21/21 09:51 SWELLING clavulanic acid Allergy Unknown SEVERE Verified 12/21/21 09:51 [From AUGMENTIN] SHARRON-RECTAL REDNESS,INFLAMMATION ibuprofen Allergy Unknown anaphylaxis Verified 05/01/14 00:00 Iodinated Contrast Media Allergy Unknown RASH,SOB Verified 12/21/21 09:51 [IV CONTRAST] Kdgfcmj-OZN-FjZ Reductase Allergy Unknown MUSCLE Verified 12/21/21 09:51 Inhibitor ACHING [HADKKEV-DRJ-VDX REDUCTASE INHIBITOR] Sulfa (Sulfonamide Allergy Unknown RASH,SOB, Verified 12/21/21 09:51 Antibiotics) ANGIOEDEMA [SULFA (SULFONAMIDE ANTIBIOTICS)] animal dander Allergy Unknown Unknown Uncoded 12/20/21 12:10 pollen Allergy Unknown Unknown Uncoded 12/20/21 12:10 shellfish Allergy Unknown breathing Uncoded 05/01/14 00:00 difficulty, rash Home Medications Medication Instructions Recorded Confirmed Last Taken Type albuterol sulfate 90 mcg/actuation 0 mcg inhalation 10/03/21 12/27/21 Unknown History aerosol inhaler clonazepam 0.5 mg tablet 0.25 mg PO BEDTIME PRN Insomnia 10/03/21 12/27/21 Unknown History levothyroxine 175 mcg tablet 175 mcg PO DAILY 10/03/21 12/27/21 12/21/21 History pantoprazole 40 mg tablet,delayed 40 mg PO DAILY PRN 10/03/21 12/27/21 Unknown History release sertraline 50 mg tablet 50 mg PO DAILY 10/03/21 12/27/21 12/21/21 History fluticasone 250 mcg-salmeterol 50 1 puff inhalation BID 12/21/21 12/27/21 12/21/21 History mcg/dose blistr powdr for inhalation (Lisa Jackson) Exam Exam Date and Time: January 10, 2022 0934 Pertinent Lab Results Pertinent Lab Results: Laboratory Tests 11/24/21 11/24/21 09:06 09:06 WBC 9.4 Hgb 14.4 Hct 44.2 Plt Count 366 Sodium 140 Potassium 4.9 Chloride 105 Carbon Dioxide 27 BUN 14 Creatinine 0.78 Narrative Narrative: EKG 12/2021 atrial fibrillation at 84 beats per minute Assessment and Plan Assessment Anesthesia Assessment: Chart Reviewed Final Anesthetic Review Family History of Problems with Anesthesia: No History of Problems with Anesthesia: No
[2022-01-11 12:19] VITALS: BMI 29.3
[2022-01-11 12:39] VITALS: BP 162/94; PULSE 70; RESP 16; TEMP 36.2; O2SAT 97
--- NOTE | 2022-01-11 12:46 | ECG_ITS ---
Test Reason : cardioversion Blood Pressure : / mmHG Vent. Rate : 062 BPM Atrial Rate : 062 BPM P-R Int : 246 ms QRS Dur : 064 ms QT Int : 480 ms P-R-T Axes : 079 030 049 degrees QTc Int : 487 ms Sinus rhythm with 1st degree A-V block Otherwise normal ECG When compared with ECG of 21-DEC-2021 10:52, No significant change was found Referred By: Tim Casas Electronically Signed By:JANAE GARCIA
--- NOTE | 2022-01-11 12:50 | PC.NURSE ---
pt here for cardioversion for persistent atrial fibrillation, on tele monitor sinus rhythm first degree av block. text to Dr. Casas. 12 lead ekg ordered & done.
--- NOTE | 2022-01-11 12:56 | PC.NURSE ---
12 lead ekg done, nsr 1st degree av block. pt can discharge home per Dr. Casas. discharged. no iv started.
== END ==
PROVIDERS: PCP Internal Medicine; Visit Provider Internal Medicine Cardiovascular Disease
DX: I48.19 Other persistent atrial fibrillation (principal); Z53.8 Procedure and treatment not carried out for other reasons; I49.8 Other specified cardiac arrhythmias
CPT/HCPCS: 93005

== ENCOUNTER → 2022-01-26 11:30 | Outpatient (REF) | payer MEDICARE, SELFPAY ==
--- NOTE | 2022-01-26 11:32 | HM_ITS ---
* Total monitoring time 2 days and 23 hours. * Underlying rhythm is sinus. Average heart rate 59/Min. Range 45 to 86/Min. * About 49% the time, rate less than 60/Min. * Rare supraventricular ectopy with minimal burden. * Rare ventricular ectopy with minimal burden. Some couplets. No runs. * No events in patient diary. MTDD
== END ==
LOC: HO.CARD 11:30
PROVIDERS: PCP Internal Medicine; Visit Provider Internal Medicine Cardiovascular Disease
DX: I48.19 Other persistent atrial fibrillation (principal)
CPT/HCPCS: 93242

== ENCOUNTER → 2022-02-23 14:37 | Outpatient (BNVA) | payer MEDICARE, SELFPAY | PROVIDERS: PCP Internal Medicine; Referring Provider Internal Medicine; Visit Provider Nurse Practitioner Family | DX: I48.19 Other persistent atrial fibrillation (principal) | CPT/HCPCS: 93005; 99212 ==

== ENCOUNTER 2022-03-22 09:47 | Outpatient (REF) | payer MEDICARE, SELFPAY ==
[2022-03-22 10:05] LABS: MANUAL DIFF FLAG NO
[2022-03-22 10:32] LABS: Basophils Absolute Auto 0.1 X10*3/uL (0.0-0.2); Basophils Percent Auto 0.5 % (0-2); Eosinophils Absolute Auto 0.1 X10*3/uL (0.0-0.4); Hemoglobin 13.6 g/dl (12.0-16.0); Imm Gran Abs Auto 0.04 X10*3/uL (0.00-0.03); Imm Gran Pct Auto 0.4 % (0.0-0.4); Lymphocytes Absolute Auto 1.9 X10*3/uL (1.2-4.9); Lymphocytes Percent Auto 18.8 % (20-40); Mean Corpuscular HGB Conc 32.4 g/dl (31.0-35.0); Mean Corpuscular Hemoglobin 29.4 pg (27.0-33.0); Mean Corpuscular Volume 90.7 fL (80.0-98.0); Mean Platelet Volume 11.2 fL (9.4-12.3); Monocytes Absolute Auto 0.7 X10*3/uL (0.1-1.2); Neutrophils Absolute Auto 7.2 x10*3/uL (2.0-8.3); Neutrophils Percent Auto 72.3 % (45-73); Platelet Count 330 X10*3/uL (160-400); Red Blood Count 4.63 X10*6/uL (4.20-5.50); Red Cell Distribution Width 13.7 % (11.0-16.0)
[2022-03-22 10:59] LABS: Alanine Aminotransferase 25 U/L (0-31); Alkaline Phosphatase 95 U/L (39-117); Anion Gap 14 (12-20); Aspartate Amino Transferase 20 U/L (5-31); Bilirubin Total 0.6 mg/dL (0.0-1.0); Blood Urea Nitrogen 13 mg/dL (9-16); Calcium 9.5 mg/dL (8.4-10.2); Carbon Dioxide 28 mmol/L (22-29); Chloride 105 mmol/L (96-108); Cholesterol 273 mg/dL; Estimated Glomerular Filt Rate > 60; Glucose Fasting 103 mg/dL (60-99); HDL Cholesterol 66 mg/dL; LDL Cholesterol Calculated 178 mg/dl; Potassium 4.8 mmol/L (3.3-5.1); Sodium 142 mmol/L (135-145); Total Protein 7.1 g/dL (6.5-8.0); Triglycerides 147 mg/dL
[2022-03-22 11:21] LABS: Thyroid Stimulating Hormone 2.68 uIU/mL (0.32-4.0)
[2022-03-22 11:35] LABS: Appearance Urine Clear; Color Urine Yellow; Glucose Urine UA Negative (Negative); Leukocyte Esterase Urine Moderate (2+) (Negative); Nitrite Urine Negative (Negative); PH 5.5 (5.0-9.0); Specific Gravity - Urine 1.015 (1.005-1.025); UMIC TRIGGER UA YES; Urine Blood Negative (Negative); Urine Ketones Negative (Negative); Urine Protein Negative (Neg-Trace)
[2022-03-22 11:43] LABS: Bacteria Urine None Seen (None Seen); Hyaline Casts Urine 0-2 /LPF (0-2); RBC Urine 0-2 /HPF (0-2)
== END 2022-03-22 09:48 | disposition home or self-care (01) ==
LOC: HO.LAB 09:47
PROVIDERS: PCP Internal Medicine; Visit Provider Internal Medicine
DX: E03.9 Hypothyroidism, unspecified (principal); E78.00 Pure hypercholesterolemia, unspecified; E55.9 Vitamin D deficiency, unspecified; I48.11 Longstanding persistent atrial fibrillation
CPT/HCPCS: 36415; 80053; 80061; 81001; 82306; 84443; 85025

== ENCOUNTER 2022-04-13 08:18 | Outpatient (REF) | payer MEDICARE, SELFPAY ==
--- NOTE | ~2022-04-13 | MM_ITS ---
EXAMINATION: MM SCREENING DIGITAL BREAST TOMOSYNTHESIS, BILATERAL CLINICAL INFORMATION: Screening. Asymptomatic. The lifetime risk of breast cancer based on the Tyrer-Cuzick Model is 5.5%. COMPARISON: Mammography: April 11, 2021 and studies dating back to December 28, 2014 TECHNIQUE: Digital breast tomosynthesis is performed in both the craniocaudal and mediolateral oblique views along with computer-aided detection (CAD). Synthesized 2D images are generated from the tomosynthesis. FINDINGS: The breasts are almost entirely fatty (ACR BI-RADS breast composition Category a). There are no significant masses, abnormal calcifications, or other abnormalities. MM/MM tomosynthesis screening BI IMPRESSION: No significant changes from prior exam. ASSESSMENT: BI-RADS 1: Negative RECOMMENDATION: Routine annual mammography screening. This patient's information was entered into a reminder system with a target due date for their next mammogram.
== END 2022-04-13 08:19 | disposition home or self-care (01) ==
LOC: HO.MAMMO 08:18
PROVIDERS: PCP Internal Medicine; Visit Provider Obstetrics & Gynecology
DX: Z12.31 Encounter for screening mammogram for malignant neoplasm of breast (principal)
CPT/HCPCS: 77063; 77067

== ENCOUNTER → 2022-05-18 11:13 | Outpatient (BNVA) | payer MEDICARE, SELFPAY | PROVIDERS: PCP Internal Medicine; Referring Provider Internal Medicine; Visit Provider Internal Medicine Cardiovascular Disease | DX: I48.0 Paroxysmal atrial fibrillation (principal) | CPT/HCPCS: 93005; 99212 ==

== ENCOUNTER → 2022-10-16 12:25 | Outpatient (BNVA) | payer MEDICARE, SELFPAY | PROVIDERS: PCP Internal Medicine; Referring Provider Internal Medicine; Visit Provider Internal Medicine Cardiovascular Disease | DX: I48.0 Paroxysmal atrial fibrillation (principal); Z79.01 Long term (current) use of anticoagulants | CPT/HCPCS: 93005; 99212 ==

== ENCOUNTER 2023-01-06 09:49 | Outpatient (REF) | payer MEDICARE, SELFPAY ==
[2023-01-06 11:48] LABS: Anion Gap 17 (12-20); Blood Urea Nitrogen 14 mg/dL (9-16); Calcium 9.4 mg/dL (8.4-10.2); Carbon Dioxide 20 mmol/L (22-29); Chloride 107 mmol/L (96-108); Estimated Glomerular Filt Rate > 60; Glucose Random 106 mg/dL (60-115); Potassium 4.6 mmol/L (3.3-5.1); Sodium 139 mmol/L (135-145)
[2023-01-06 13:02] LABS: B Type Natriuretic Peptide 59 pg/mL (<100)
== END 2023-01-06 09:50 | disposition home or self-care (01) ==
LOC: HO.LAB 09:49
PROVIDERS: PCP Internal Medicine; Visit Provider Nurse Practitioner
DX: R60.9 Edema, unspecified (principal)
CPT/HCPCS: 36415; 80048; 83880

== ENCOUNTER 2023-02-03 09:30 | Outpatient (REF) | payer MEDICARE, SELFPAY ==
[2023-02-03 09:56] LABS: MANUAL DIFF FLAG NO
[2023-02-03 10:30] LABS: Basophils Absolute Auto 0.1 X10*3/uL (0.0-0.2); Eosinophils Absolute Auto 0.2 X10*3/uL (0.0-0.4); Eosinophils Percent Auto 1.9 % (0-4); Hematocrit 44.1 % (37.0-47.0); Imm Gran Abs Auto 0.04 X10*3/uL (0.00-0.03); Imm Gran Pct Auto 0.5 % (0.0-0.4); Lymphocytes Absolute Auto 2.2 X10*3/uL (1.2-4.9); Lymphocytes Percent Auto 26.4 % (20-40); Mean Corpuscular HGB Conc 31.7 g/dl (31.0-35.0); Mean Corpuscular Volume 91.5 fL (80.0-98.0); Mean Platelet Volume 11.1 fL (9.4-12.3); Monocytes Absolute Auto 0.7 X10*3/uL (0.1-1.2); Monocytes Percent Auto 8.2 % (2-11); Neutrophils Absolute Auto 5.2 x10*3/uL (2.0-8.3); Platelet Count 334 X10*3/uL (160-400); Red Blood Count 4.82 X10*6/uL (4.20-5.50); Red Cell Distribution Width 13.8 % (11.0-16.0); White Blood Count 8.4 X10*3/uL (4.8-10.8)
[2023-02-03 11:18] LABS: Alanine Aminotransferase 18 U/L (0-31); Alkaline Phosphatase 83 U/L (39-117); Anion Gap 13 (12-20); Aspartate Amino Transferase 17 U/L (5-31); Bilirubin Total 0.6 mg/dL (0.0-1.0); Blood Urea Nitrogen 18 mg/dL (9-16); Calcium 9.1 mg/dL (8.4-10.2); Carbon Dioxide 28 mmol/L (22-29); Chloride 106 mmol/L (96-108); Cholesterol 276 mg/dL (<200); Estimated Glomerular Filt Rate > 60; Glucose Fasting 88 mg/dL (60-99); HDL Cholesterol 77 mg/dL (>40); LDL Cholesterol Calculated 175 mg/dL (<100); Potassium 4.8 mmol/L (3.3-5.1); Sodium 142 mmol/L (135-145); Total Protein 7.3 g/dL (6.5-8.0); Triglycerides 124 mg/dL (<150)
[2023-02-03 11:38] LABS: Thyroid Stimulating Hormone 1.43 uIU/mL (0.32-4.0)
[2023-02-08 11:43] LABS: VITAMIN D (1,25 OH) D3 56 pg/mL; Vit D (1,25-Dihydroxy) Total 56 pg/mL (18-72); Vitamin D (1,25 OH) D2 <8 pg/mL
== END 2023-02-03 09:31 | disposition home or self-care (01) ==
LOC: HO.LAB 09:30
PROVIDERS: Absent Provider Internal Medicine; PCP Internal Medicine; Visit Provider Internal Medicine Cardiovascular Disease
DX: R06.02 Shortness of breath (principal); E03.9 Hypothyroidism, unspecified; E78.00 Pure hypercholesterolemia, unspecified; E55.9 Vitamin D deficiency, unspecified; E66.09 Other obesity due to excess calories; I48.11 Longstanding persistent atrial fibrillation
CPT/HCPCS: 36415; 80053; 80061; 82652; 84443; 85025

== ENCOUNTER 2023-04-23 12:51 | Outpatient (AMB) | payer MEDICARE, SELFPAY ==
--- NOTE | 2023-04-23 12:52 | A.OFFVIS_ITS ---
Intake Vital Signs 04/23/23 12:54 Height 5 ft 8 in Weight 198 lb 6.656 oz BMI 30.2 BP 120/70 Blood Pressure Location Lt brachial Position Sitting Pulse 68 Intake Visit Reasons: 6 month follow up w/ EKG Intake Note: 6 month follow up w/ EKG shortness of breath. 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 Accompanied by: Self / Same As Patient Allergies amoxicillin [From AUGMENTIN] Allergy (Unknown, Verified 10/16/22 12:46) SEVERE SHARRON-RECTAL REDNESS,INFLAMMATION aspirin [ASPIRIN] Allergy (Unknown, Verified 10/16/22 12:46) FACIAL SWELLING clavulanic acid [From AUGMENTIN] Allergy (Unknown, Verified 10/16/22 12:46) SEVERE SHARRON-RECTAL REDNESS,INFLAMMATION ibuprofen Allergy (Unknown, Verified 10/16/22 12:46) anaphylaxis Iodinated Contrast Media [IV CONTRAST] Allergy (Unknown, Verified 10/16/22 12:46) RASH,SOB Tekbugq-CXB-GuL Reductase Inhibitor [ZDZBTJD-UZH-SSW REDUCTASE INHIBITOR] Allergy (Unknown, Verified 10/16/22 12:46) MUSCLE ACHING Sulfa (Sulfonamide Antibiotics) [SULFA (SULFONAMIDE ANTIBIOTICS)] Allergy (Unknown, Verified 10/16/22 12:46) RASH,SOB, ANGIOEDEMA animal dander Allergy (Unknown, Uncoded 12/20/21 12:10) Unknown pollen Allergy (Unknown, Uncoded 12/20/21 12:10) Unknown shellfish Allergy (Unknown, Uncoded 05/01/14 00:00) breathing difficulty, rash Medication List - Last Reconciled 04/23/23 by Tim Casas MD albuterol sulfate 90 mcg/actuation 0 mcg inhalation cetirizine 10 mg PO fluticasone propion-salmeterol 250-50 mcg/dose (Wixela Inhub) 1 puff inhalation BID levothyroxine 175 mcg PO DAILY metoprolol succinate ER (Toprol XL) 50 mg PO DAILY pantoprazole 40 mg PO DAILY MDD GERD rivaroxaban (Xarelto) 20 mg PO DAILY rizatriptan 10 mg PO DAILY PRN sertraline 50 mg PO DAILY HPI HPI Comments History of Present Illness Details Davida comes for follow-up. She has no new cardiac complaints. Denies any prolonged palpitation irregular heartbeat. Exercises regularly. Does still have shortness of breath. No orthopnea, PND, leg edema. No bleeding issues or neurologic events. Takes all her medications. Currently off antiarrhythmic drug therapy [facility] Medical History Persistent atrial fibrillation Surgical History History of colon resection Family History Father CAD (coronary artery disease) Afib Mother Afib Brother Afib Alcohol intake: current Alcohol intake frequency: a few times a week Alcohol type: wine Patient Tobacco Use Status: Former Tobacco user Quit Date: 12 years ago Tobacco use type: Cigarette Review of Systems Const Denies chills, Denies fatigue, Denies fever(s), Denies frequent falls, Denies weakness, Denies weight gain and Denies weight loss ENT Denies dizziness Card Denies chest pain, Denies leg edema, Denies lightheadedness, Denies palpitations, Denies dyspnea, Denies dyspnea on exertion, Denies orthopnea and Denies other (loss of consciousness) Resp Denies cough, Denies dyspnea and Denies dyspnea on exertion GI Denies hematochezia and Denies change in stool character Musc Denies abnormal gait, Denies muscle weakness, Denies numbness, Denies radiating pain into limb and Denies tingling Neuro Denies abnormal gait, Denies dizziness, Denies frequent falls, Denies numbness, Denies tingling and Denies weakness Endo Denies fatigue and Denies palpitations Physical Exam Vital Signs: Last Vital Signs Pulse 68 04/23/23 12:54 BP 120/70 04/23/23 12:54 BMI result Body Mass Index 30.2 Const General: cooperative, healthy appearing, comfortable and no acute distress Orientation/consciousness: patient oriented x3 Neck Neck: Yes normal visual inspection and Yes no JVD Resp Effort & Inspection: normal respiratory effort Auscultation: clear to auscultation bilaterally, no crackles, no rales, no rhonchi and no wheezes Cardio Jugular venous distension: no JVD Rate: regular rate Rhythm: regular rhythm Heart sounds: S1 normal heart sound present, S2 normal heart sound present, no gallops, no murmurs and no rubs Neuro General: patient oriented x3 Extrem General: Yes normal to inspection, No no pedal edema and No calf tenderness Psych Appearance: grossly normal Mental Status: mental status grossly normal Speech and movement: Normal speech and movement present Office Procedures EKG Details: EKG shows normal sinus rhythm with normal EKG 14680-[id number], Complete Assessment & Plan Assessment & Plan (1) Paroxysmal atrial fibrillation: Code(s): I48.0 - Paroxysmal atrial fibrillation Plan: Paroxysmal atrial fibrillation status post ablation and currently of amiodarone therapy. Was resistant atrial fibrillation the past. This is usually suggestive structural atrial fibrillation. Patient is off amiodarone therapy at this point time after ablation. Doing well. We discussed about management of rhythm control approach and pursuing monitoring at home. She does have a known EKG sensor at home. Continue metoprolol therapy avoidance of stimulants was discussed advised to call me with recurrent symptoms. Continue full oral anti coagulation, currently on Xarelto 20 mg daily. Semi annual renal function test is recommended. Follow-up echocardiogram in 1 year's time. (2) SOB (shortness of breath) on exertion: Code(s): R06.02 - Shortness of breath Plan: Shortness of breath on exertion which probably is multifactorial given possibly some amount of deconditioning and underlying bronchospastic airway disease. Also possibility of atrial myopathy is existent. Although she does not have significant diastolic dysfunction. Will follow-up with echocardiographic study in 1 year's time. Advised to maintain activity level as tolerated. Advised optimize a marinelli for pulmonary function. Continue participate in weight loss program. Follow up in the clinic in 1 year's time, sooner p.r.n.. Thank you for allowing me to partake in her care Coding Level of Care Code Est Pt Level 4 (49474) Diagnoses Paroxysmal atrial fibrillation I48.0 SOB (shortness of breath) on exertion R06.02 CPT Codes EKG - CPT: 47695-[id number], Complete ([id number])
[2023-04-23 12:54] VITALS: BP 120/70; PULSE 68; BMI 30.2
== END 2023-04-23 13:12 | disposition home or self-care (01) ==
PROVIDERS: Visit Provider Internal Medicine Cardiovascular Disease
DX: I48.0 Paroxysmal atrial fibrillation (principal); R06.02 Shortness of breath
CPT/HCPCS: 93010; 99214

== ENCOUNTER → 2023-04-23 12:51 | Outpatient (BNVA) | payer MEDICARE, SELFPAY | PROVIDERS: Visit Provider Internal Medicine Cardiovascular Disease | DX: I48.0 Paroxysmal atrial fibrillation (principal); R06.02 Shortness of breath | CPT/HCPCS: 93005; 99212 ==

== ENCOUNTER 2023-06-07 11:14 | Outpatient (REF) | payer MEDICARE, SELFPAY | END 2023-06-07 11:15 | disposition home or self-care (01) | LOC: HO.MAMMO 11:14 | PROVIDERS: PCP Internal Medicine; Visit Provider Internal Medicine | DX: Z12.31 Encounter for screening mammogram for malignant neoplasm of breast (principal) | CPT/HCPCS: 77063; 77067 ==

== ENCOUNTER → 2023-06-07 11:15 | Outpatient (BNV) | payer MEDICARE, SELFPAY | PROVIDERS: PCP Internal Medicine; Visit Provider Radiology Diagnostic Radiology | DX: Z12.31 Encounter for screening mammogram for malignant neoplasm of breast (principal) | CPT/HCPCS: 77063; 77067 ==

== ENCOUNTER 2024-03-12 09:31 | Outpatient (REF) | payer MEDICARE, SELFPAY ==
[2024-03-12 10:02] LABS: MANUAL DIFF FLAG NO
[2024-03-12 10:31] LABS: Basophils Absolute Auto 0.1 X10*3/uL (0.0-0.2); Basophils Percent Auto 0.8 % (0-2); Eosinophils Absolute Auto 0.2 X10*3/uL (0.0-0.4); Eosinophils Percent Auto 1.9 % (0-4); Hematocrit 44.6 % (37.0-47.0); Hemoglobin 14.8 g/dl (12.0-16.0); Imm Gran Abs Auto 0.03 X10*3/uL (0.00-0.03); Imm Gran Pct Auto 0.3 % (0.0-0.4); Lymphocytes Absolute Auto 2.1 X10*3/uL (1.2-4.9); Lymphocytes Percent Auto 23.8 % (20-40); Mean Corpuscular HGB Conc 33.2 g/dl (31.0-35.0); Mean Corpuscular Volume 90.3 fL (80.0-98.0); Monocytes Absolute Auto 0.7 X10*3/uL (0.1-1.2); Monocytes Percent Auto 7.5 % (2-11); Neutrophils Absolute Auto 5.8 x10*3/uL (2.0-8.3); Neutrophils Percent Auto 65.7 % (45-73); Platelet Count 317 X10*3/uL (160-400); Red Blood Count 4.94 X10*6/uL (4.20-5.50); Red Cell Distribution Width 13.4 % (11.0-16.0); White Blood Count 8.8 X10*3/uL (4.8-10.8)
[2024-03-12 11:30] LABS: Alanine Aminotransferase 21 U/L (0-31); Alkaline Phosphatase 94 U/L (39-117); Anion Gap 13 (12-20); Aspartate Amino Transferase 18 U/L (5-31); Bilirubin Total 0.8 mg/dL (0.0-1.0); Blood Urea Nitrogen 12 mg/dL (9-16); Calcium 9.8 mg/dL (8.4-10.2); Carbon Dioxide 27 mmol/L (22-29); Chloride 104 mmol/L (96-108); Cholesterol 270 mg/dL (<200); Estimated Glomerular Filt Rate > 60; Glucose Fasting 111 mg/dL (60-99); HDL Cholesterol 65 mg/dL (>40); LDL Cholesterol Calculated 160 mg/dL (<100); Potassium 4.6 mmol/L (3.3-5.1); Sodium 139 mmol/L (135-145); Total Protein 7.4 g/dL (6.5-8.0); Triglycerides 225 mg/dL (<150)
[2024-03-12 11:32] LABS: Thyroid Stimulating Hormone 4.47 uIU/mL (0.32-4.0); Vitamin D 25-OH Total 29.1 ng/mL (>30)
== END 2024-03-12 09:32 | disposition home or self-care (01) ==
LOC: HO.LAB 09:31
PROVIDERS: PCP Internal Medicine; Visit Provider Internal Medicine
DX: E03.9 Hypothyroidism, unspecified (principal); E78.00 Pure hypercholesterolemia, unspecified; E55.9 Vitamin D deficiency, unspecified; E66.09 Other obesity due to excess calories; I48.11 Longstanding persistent atrial fibrillation
CPT/HCPCS: 36415; 80053; 80061; 82306; 84443; 85025

== ENCOUNTER → 2024-04-07 08:14 | Outpatient (REF) | payer MEDICARE, SELFPAY ==
--- NOTE | 2024-04-07 09:06 | CA_ITS ---
Transthoracic Echocardiogram Patient (Last, First, Middle): Davida Taylor, Gender: Female Date of : 1950 Age: 73 Procedure Date: 04/07/2024 Procedure Type: Transthoracic Echocardiogram Location: OP Height: 172.72 cm Weight: 87.54 kg BSA: 2.01 m2 Heart Rate: bpm BP: 120 / 70 mmHg Oncology Social Work: KARTHIKEYAN Referring MD: Tim Casas MD Symptoms: I48.0 - Paroxysmal atrial fibrillation Study Quality: Adequate Conclusions: - The left ventricular systolic function is normal. The visually estimated ejection fraction is between 65-70%. - No obvious valvular pathology seen on this study. Findings Left Ventricle Normal left ventricular cavity size. There is normal left ventricular wall thickness. The left ventricular systolic function is normal. The visually estimated ejection fraction is between 65-70%. There is no evidence of regional wall motion abnormalities. Diastolic function is normal for age. Right Ventricle Normal right ventricular cavity size and systolic function. Atria Both atria are normal in size. Aortic Valve There is a normal trileaflet aortic valve. There is mild calcification of the aortic valve. There is no aortic valve stenosis. There is no aortic valve regurgitation. Mitral Valve There is mild mitral annular calcification. There is no mitral valve regurgitation. There is no mitral valve stenosis. Pulmonic Valve The pulmonic valve is likely normal. Tricuspid Valve There is trace tricuspid valve regurgitation. Tricuspid regurgitation envelope is inadequate for calculation of right ventricular systolic pressure. Great Vessels The asc aorta is normal in size. Venous The inferior vena cava is normal in size and collapses greater than 50% with inspiration. Pericardium/Pleural There is no evidence of pericardial effusion. Prior Study Comparison No significant change compared to prior study dated: 10/07/2021. Recommendations, Care & Conclusions No obvious valvular pathology seen on this study. Measurements 2D Linear Measurements IVSd: 0.97 0.6-0.9/0.6-1.0 cm LVIDd: 4.76 3.9-5.3/4.2-5.9 cm LVIDd Index: 2.37 2.4-3.2/2.2-3.1 cm/m2 LVIDs: 2.47 2.0-3.6 cm LVPWd: 0.84 0.7-1.1 cm LA Diam: 3.50 2.7-3.8/3.0-4.0 cm LAIDs Index: 1.74 1.5-2.3 cm/m2 LV Mass: 182.23 67-162/88-224 g LV Mass Index: 90.66 43-95/49-115 g/m2 LVOT Diam: 2.00 3.0+(-)1.3 cm 2D Systolic Function EF 4C: 64.40 >55% EF 2C: 67.70 >55% EF BiP: 64.30 >55% Mitral Valve MV Pk E: 0.81 MV PK A: 0.63 MV Decel Time: 316.00 E/A: 1.30 E'Lateral: 10.10 E'Medial: 7.54 E/E' Med: 10.80 E/E' Lat: 8.10 PHT: 93.00 MVA PHT: 2.37 Decel [place]: 2.57 Aortic Valve AoV Pk Moo: 1.68 AoV Mn Moo: 1.18 AoV VTI: 0.47 AoV Pk Grad: 11.00 Aov Mn Grad: 7.00 CAROLYN Cont.VTI: 2.12 LVOT LVOT Pk Moo: 1.04 LVOT Mn Moo: 0.78 LVOT VTI: 0.32 LVOT Pk Grad: 4.00 LVOT Mn Grad: 3.00 LVOT Diam: 2.00 LVOT Area: 3.14 Diastolic Function MV Pk E: 0.81 MV Pk A: 0.63 E/A: 1.30 E'Medial: 7.54 E/E' Med: 10.80 E' Laterial: 10.10 E/E' Lat: 8.10 Right Ventricle TAPSE (mm): 22.10 TVS' Moo: 11.40 Tricuspid Valve RA Press: 3.00 Great Vessels Aorta Sinus of Valsalva: 3.37 2.0-3.[address] [place]: 2.29 1.7-3.4 cm Ao Asc: 3.70 2.1-3.4 cm Updated in Other Vendor System with Status of Final Jose Baker MD electronically signed on 04/07/2024 9:56:45 AM with status of Final
== END ==
LOC: HO.CARD 08:14
PROVIDERS: PCP Internal Medicine; Visit Provider Internal Medicine Cardiovascular Disease
DX: I48.0 Paroxysmal atrial fibrillation (principal)
CPT/HCPCS: 93306

== ENCOUNTER → 2024-04-07 09:06 | Outpatient (BNV) | payer MEDICARE, SELFPAY | PROVIDERS: PCP Internal Medicine; Visit Provider Internal Medicine | DX: I35.8 Other nonrheumatic aortic valve disorders (principal); I48.0 Paroxysmal atrial fibrillation | CPT/HCPCS: 93306 ==

== ENCOUNTER 2024-04-10 15:32 | Outpatient (REF) | payer MEDICARE, SELFPAY | END 2024-04-10 15:33 | disposition home or self-care (01) | LOC: HO.HOSX 15:32 | PROVIDERS: Visit Provider Physician Assistant | DX: M25.511 Pain in right shoulder (principal) | CPT/HCPCS: 73030 ==

== ENCOUNTER 2024-04-11 08:01 | Outpatient (AMB) | payer MEDICARE, SELFPAY ==
--- NOTE | 2024-04-11 08:18 | MHC.OFFVIS ---
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 Patient reports her pain has been present for several years that has recently gotten worse. Her pain is aggravating with lifting. Her pain travels down her arm across and across back up to her neck. States numbness in her arm at night with sleeping. Finds some relief with taking Tylenol and little to no relief with topical cream. States having x-rays in the past which showed arthritis. Allergies amoxicillin [From AUGMENTIN] Allergy (Unknown, Verified 04/11/24 08:20) SEVERE SHARRON-RECTAL REDNESS,INFLAMMATION aspirin [ASPIRIN] Allergy (Unknown, Verified 04/11/24 08:20) FACIAL SWELLING clavulanic acid [From AUGMENTIN] Allergy (Unknown, Verified 04/11/24 08:20) SEVERE SHARRON-RECTAL REDNESS,INFLAMMATION ibuprofen Allergy (Unknown, Verified 04/11/24 08:20) anaphylaxis Iodinated Contrast Media [IV CONTRAST] Allergy (Unknown, Verified 04/11/24 08:20) RASH,SOB Urfrmbj-PVU-VtE Reductase Inhibitor [NWMMGPB-WQU-IEN REDUCTASE INHIBITOR] Allergy (Unknown, Verified 04/11/24 08:20) MUSCLE ACHING Sulfa (Sulfonamide Antibiotics) [SULFA (SULFONAMIDE ANTIBIOTICS)] Allergy (Unknown, Verified 04/11/24 08:20) RASH,SOB, ANGIOEDEMA animal dander Allergy (Unknown, Uncoded 04/11/24 08:20) Unknown pollen Allergy (Unknown, Uncoded 04/11/24 08:20) Unknown shellfish Allergy (Unknown, Uncoded 04/11/24 08:20) breathing difficulty, rash HPI HPI 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 She denies any shoulder injury in the past. She states she has worsening pain in her right shoulder that radiates down to her arm and up to her neck. Her pain is aggravated with lifting heavy items. She denies any pain with reaching or at night however she does experiences numbness with sleeping as she sleeps on her left side. She finds mild relief with Tylenol and minimal relief with topical cream. She has not had any treatment in the past. She does not have a history of diabetes. [facility] Medical History (Updated 04/11/24 @ 08:37 by Gurinder Blood PA-C) Persistent atrial fibrillation Surgical History (Updated 04/11/24 @ 08:21 by STU Ellington) History of cardiac radiofrequency ablation History of colon resection Family History Father CAD (coronary artery disease) Afib Mother Afib Brother Afib Social History (Updated 04/11/24 @ 08:21 by STU Ellington) Alcohol intake: current Alcohol intake frequency: a few times a week Alcohol type: wine Patient Tobacco Use Status: Former Tobacco user Tobacco use type: Cigarette Current occupational status: unemployed Review of Systems Const All systems reviewed & are unremarkable except as noted in HPI and below Physical Exam Vital Signs: BMI result Body Mass Index 30.1 Const General: cooperative, healthy appearing, comfortable, no acute distress, well developed and alert Orientation/consciousness: patient oriented x3 HEENT Head: Yes normal to inspection, Yes normocephalic and Yes atraumatic Eyes General: appearance normal, both eyes and all related structures Resp Effort & Inspection: normal respiratory effort and able to speak in complete sentences Cardio Rate: regular rate Peripheral pulses: Peripheral pulses 2+ throughout GI Palpation (GI): Soft to palpation Skin Lesions: no lesions Rashes: no rashes Neuro General: patient oriented x3 Extrem Other: Right shoulder: Normal to inspection. Tenderness over the bicipital groove and along the deltoid region of the shoulder. Forward flexion to 175, external rotation to 90, internal rotation to S1. 5/5 RTC strength. Positive Dominguez. NVI. Office Procedures AMB Joint Injection/Aspiration Joint Injection/Aspiration Primary Site: right shoulder Prep: site was prepped using aseptic technique, ethochloride spray was applied and injection warnings given Injected: 80 mg of, DepoMedrol, with 8 mL of, 1% plain lidocaine and in the subcromial space Approach Used: posterolateral Procedure: The patient tolerated the procedure well and there was some relief with the local anesthesia Coding 28969 - Glenohumeral/Tronchanteric Bursa/Intraarticular Procedure code (CPT) selection complete Results Reviewed Results Reviewed: Xrays were obtained in the office today and personally reviewed by me of the right shoulder show mild ghj oa with osteophyte formation along the acromion. Assessment & Plan Assessment & Plan (1) Subacromial bursitis of right shoulder joint: Code(s): M75.51 - Bursitis of right shoulder Category: Medical Plan We discussed options today, which include steroid injection. The patient did consent to move forward with the right shoulder injection, which was tolerated well. I recommended rest, ice, and elevation and OTC anti-inflammatories as needed for discomfort. She was also given a course of physical therapy in the office today. If symptoms persist or worsens over the next 6-8 weeks, patient will contact the office, otherwise follow-up as needed. Orders: Orders PT Evaluation and Treatment Today M75.51 - Bursitis of right shoulder XR shoulder RT min 2V Today M25.511 - Pain in right shoulder Patient Instructions: Scribed for Gurinder Blood PA-C, by Guero Babb medical billing associate, on 04/11/2024 at 8:00 AM EST. ?I, Gurinder Blood PA-C, have personally reviewed and agree with the information entered by the scribe. Coding Level of Care Code New Pt Level 3 (15890) Complex EM visit Add On G2211 Diagnoses Subacromial bursitis of right shoulder joint M75.51 CPT Codes Coding - Joint 7: 95707 - Glenohumeral/Tronchanteric Bursa/Intraarticular ([id number])
[2024-04-11 08:24] VITALS: BMI 30.1
== END 2024-04-11 08:44 | disposition home or self-care (01) ==
PROVIDERS: PCP Internal Medicine; Visit Provider Physician Assistant
DX: M75.51 Bursitis of right shoulder (principal)
CPT/HCPCS: 20610; 99203

== ENCOUNTER → 2024-04-11 08:01 | Outpatient (BNVA) | payer MEDICARE, SELFPAY | PROVIDERS: PCP Internal Medicine; Visit Provider Physician Assistant | DX: M75.51 Bursitis of right shoulder (principal) | CPT/HCPCS: 20610; 99202; J1010; J2003 ==

== ENCOUNTER 2024-07-21 10:46 | Outpatient (AMB) | payer MEDICARE, SELFPAY ==
--- NOTE | 2024-07-21 10:49 | A.OFFVIS_ITS ---
Vital Signs 07/21/24 10:50 Height 5 ft 8 in Weight 200 lb 9.93 oz BMI 30.5 BP 116/68 Blood Pressure Location Lt brachial Position Sitting Pulse 63 Intake Visit Reasons: 1 yr f/up Intake Note: 1 year follow-up with ekg feeling good Squeegee Finisher Required: No Allergies amoxicillin [From AUGMENTIN] Allergy (Unknown, Verified 04/11/24 08:20) SEVERE SHARRON-RECTAL REDNESS,INFLAMMATION aspirin [ASPIRIN] Allergy (Unknown, Verified 04/11/24 08:20) FACIAL SWELLING clavulanic acid [From AUGMENTIN] Allergy (Unknown, Verified 04/11/24 08:20) SEVERE SHARRON-RECTAL REDNESS,INFLAMMATION ibuprofen Allergy (Unknown, Verified 04/11/24 08:20) anaphylaxis Iodinated Contrast Media [IV CONTRAST] Allergy (Unknown, Verified 04/11/24 08:20) RASH,SOB Iofjdph-QTH-DeT Reductase Inhibitor [CODNBJM-AKZ-DEQ REDUCTASE INHIBITOR] Allergy (Unknown, Verified 04/11/24 08:20) MUSCLE ACHING Sulfa (Sulfonamide Antibiotics) [SULFA (SULFONAMIDE ANTIBIOTICS)] Allergy (Unknown, Verified 04/11/24 08:20) RASH,SOB, ANGIOEDEMA animal dander Allergy (Unknown, Uncoded 04/11/24 08:20) Unknown pollen Allergy (Unknown, Uncoded 04/11/24 08:20) Unknown shellfish Allergy (Unknown, Uncoded 04/11/24 08:20) breathing difficulty, rash Medication List - Last Reconciled 07/21/24 by Tim Casas MD albuterol sulfate 90 mcg/actuation 0 mcg inhalation cetirizine 10 mg PO fluticasone propion-salmeterol 250-50 mcg/dose (Wixela Inhub) 1 puff inhalation BID levothyroxine 175 mcg PO DAILY metoprolol succinate ER 50 mg PO DAILY pantoprazole 40 mg PO DAILY MDD GERD rivaroxaban (Xarelto) 20 mg PO DAILY rizatriptan 10 mg PO DAILY PRN sertraline 50 mg PO DAILY HPI Comments Details: Davida comes for follow-up. Overall she has been doing well from cardiac perspective. She has not had any recurrent episodes of atrial fibrillation. Denies any prolonged palpitation, irregular heartbeat, fluttering in his chest. No worsening shortness of breath, orthopnea, PND. She says shortness of breath with exertion in his related to asthma. She denies any lightheadedness, syncope. No bleeding issues or neurologic events. She denies any exertional chest pain. However she does get chest pain at nighttime after she has had some spicy food. She has an upcoming appointment with GI. Her echocardiogram in [facility] was within acceptable/normal limits [facility] Medical History Persistent atrial fibrillation Surgical History History of cardiac radiofrequency ablation History of colon resection Family History Father CAD (coronary artery disease) Afib Mother Afib Brother Afib Social History Alcohol intake: current Alcohol intake frequency: a few times a week Alcohol type: wine Patient Tobacco Use Status: Former Tobacco user Tobacco use type: Cigarette Current occupational status: unemployed Review of Systems Const Denies chills, Denies fatigue, Denies fever(s), Denies frequent falls, Denies weakness, Denies weight gain and Denies weight loss ENT Denies dizziness Card Denies chest pain, Denies leg edema, Denies lightheadedness, Denies palpitations, Denies dyspnea, Denies dyspnea on exertion, Denies orthopnea and Denies other (loss of consciousness) Resp Denies cough, Denies dyspnea and Denies dyspnea on exertion GI Denies hematochezia and Denies change in stool character Musc Denies abnormal gait, Denies muscle weakness, Denies numbness, Denies radiating pain into limb and Denies tingling Neuro Denies abnormal gait, Denies dizziness, Denies frequent falls, Denies numbness, Denies tingling and Denies weakness Endo Denies fatigue and Denies palpitations Physical Exam Vital Signs: Last Vital Signs Pulse 63 07/21/24 10:50 BP 116/68 07/21/24 10:50 BMI result Body Mass Index 30.5 Const General: cooperative, healthy appearing, comfortable and no acute distress Orientation/consciousness: patient oriented x3 Neck Neck: Yes normal visual inspection and Yes no JVD Resp Effort & Inspection: normal respiratory effort Auscultation: clear to auscultation bilaterally, no crackles, no rales, no rhonchi and no wheezes Cardio Jugular venous distension: no JVD Rate: regular rate Rhythm: regular rhythm Heart sounds: S1 normal heart sound present, S2 normal heart sound present, no gallops, no murmurs and no rubs Neuro General: patient oriented x3 Extrem General: Yes normal to inspection, No no pedal edema and No calf tenderness Psych Appearance: grossly normal Mental Status: mental status grossly normal Speech and movement: Normal speech and movement present Office Procedures EKG Details: EKG shows normal sinus rhythm with first-degree AV block otherwise normal EKG 12713-Jjvhsylzxwoxpinrd, Complete Assessment & Plan Assessment & Plan (1) Paroxysmal atrial fibrillation: Code(s): I48.0 - Paroxysmal atrial fibrillation Category: Medical Plan: Highly symptomatic paroxysmal atrial fibrillation has done very well with rhythm control approach status post ablation. She was doing very well from that perspective. Continue to avoid stimulants. Continue metoprolol therapy. Continue full oral anticoagulation, currently on Xarelto 20 mg daily. CHADSVASc score of 3. Stress mitigation strategies was discussed. Continue participate in regular physical activity as tolerated. Advised to call me with any new symptoms. Semi annual renal function test is recommended. Will follow up in the clinic in 1 year's time, sooner p.r.n.. Thank you for allowing me to partake in her care Coding Level of Care Code Est Pt Level 4 (28956) Complex EM visit Add On G2211 Diagnoses Paroxysmal atrial fibrillation I48.0 CPT Codes EKG - CPT: 17319-Jlzwtxxllqkljllmz, Complete ([id number])
[2024-07-21 10:50] VITALS: BP 116/68; PULSE 63; BMI 30.5
--- OUTSIDE RECORDS SUMMARY | 2024-07-21 12:12 | XMS_ITS | Patient Health Record ---
Author Organization Regis Fang MD Address [address] [place], [place] [id number] Care Team Providers Care Potato Loader Name Role Phone Chaim Valle DO Primary Care Provider Unavail able Allergies Allergen (clinical drug ingredient) Drug/Non Drug Allergy documented on EMR Reaction Allergy Type Onset Date Status ezetimibe Zetia Unknown Drug Allergy Active Sulfacet-R Unknown Drug Allergy Active ibuprofen Ibuprofen Unknown Drug Allergy Active Reason For Referral No Information Medications Medication SIG (Take, Route, Frequency, Duration) Notes Start Date End Date Status Xarelto 10 MG 1 tablet Orally Once a day for 30 day(s) Active predniSONE 10 MG 1 tablet with food o r milk Orally 4 tabs for 3 days,3tabs for 3 days, 2 tabs for 3 days, and 1 tab for 3 days for 14 days 06/20/2019 Not-Taking Zithromax Z-Roberto 250 MG 2 tablet on the f irst day, then 1 tablet daily for 4 days Orally Once a day for 5 day(s) 06/20/2019 Not-Taking Pantoprazole Sodium 40 MG Oral for 90 Active Amiodarone HCl 400 MG 1 tablet Orally On ce a day for 30 day(s) Active Claritin 10 MG 1 tablet Orally Once a day for 30 day(s) Active Levothyroxine Sodium 175 MCG Oral for 90 Active LORazepam 1 MG 1 tablet at bedtime as needed Orally Once a day Active SUMAtriptan Succinate 100 MG Oral for 30 Active Wixela Inhub 250-50 MCG/DOSE Inhalation for 90 Active Sertraline HCl 100 MG Oral for 90 Active ProAir HFA 108 (90 Base) MCG/ACT Inhalation for 33 Active Problems Problem Type SNOMED Code ICD Code Onset Dates Problem Status W/U Status Risk Notes Problem [id number] Moderate persistent asthmatic bronchitis with acute exacerbation (J45.41) Active confirmed Plan Of Treatment No Information Insurance Providers Payer Name Payer Address Payer Phone Subscriber Number Group Number Insured Name Patient Relationship to Insured Coverage Start Date Coverage End Date [employer] [address] [place] [address] [id number] Davida Taylor Self - patient is the insured [facility] [employer] [facility] CLAIM DIV [id number] [place] [phone] [id number] Davida Taylor Self - patient is the insured
--- OUTSIDE RECORDS SUMMARY | 2024-07-21 12:12 | XMS_ITS ---
Author [facility] Address [address] [place] [address] Care Team Providers Care In Flight Technician Name Role Phone Chaim Valle MD Primary Care Provider Unavail able Black, Giselle Unavailable [phone] Allergies Allergen (clinical drug ingredient) Drug/Non Drug Allergy documented on EMR Reaction Allergy Type Onset Date Status ibuprofen Advil Facial Swelling Drug Allergy Active aspirin Aspirin Facial Swelling Drug Allergy Active sulfamethoxazole / trimethoprim Bactrim Facial Swelling Drug Allergy Active Iodinated contrast media (substance) Iodinated Diagnostic Agents Unknown Drug Allergy Active Shellfish (FN) Shellfish-derived Products hives Drug Allergy Active REASON FOR VISIT Foot pain Medications Medication SIG (Take, Route, Frequency, Duration) Notes Start Date End Date Status ProAir HFA 12/27/2022 Active Rizatriptan Benzoate 10 MG Oral for 23 Days PRN Active Claritin 10 MG 1 tablet Orally Once a day for 30 day(s) 12/27/2022 Active Levothyroxine Sodium 175 MCG Oral for 90 Days Active Wixela Inhub 250-50 MCG/ACT Inhalation for 30 Days Activ e Metoprolol Tartrate 50 MG 1 tablet with food Orally daily Active Xarelto 20 MG Oral for 90 Days Active Amiodarone HCl 100 MG 1 tablet Orally On ce a day for 30 day(s) 12/27/2022 Not-Taking Sertraline HCl 50 MG TAKE 1 TABLET BY [facility] EVERY DAY Oral for 90 Days Active Social History Tobacco Use: Social History Observation Description Date Details (start date - stop date) Former Smoker NA - NA Tobacco Use/Smoking Question Answer Notes Are you a: former smoker Additional Findings: Tobacco Non-User Current no n-smoker Alcohol Screen Question Answer Notes Did you have a drink containing alcohol in the p ast year? No Points 0 Interpretation Negative Tobacco use other than smoking: Question Answer Notes Are you an other tobacco user? 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 and Pain of toe of right foot M79.674 Assessments Encounter Date Diagnosis (ICD Code) Assessment Notes Treatment Notes Treatment Clinical Notes Section Notes 03/06/2023 Camacho's neuroma of right foot (ICD-10 - G57.61) 03/06/2023 Pain of toe of right foot (ICD-10 - M79.674) Plan Of Treatment Next Appt Details Follow Up: prn, Reason: Progress Notes * Davida TAYLOR LDOB: [birth year] (72 yo F)Acc No.[id number]:03/06/2023 Progress Notes Patient:?Davida Taylor L Provider:?Giselle Castelan DPM :1950???Age:72 Y???Sex:Female D ate:03/06/2023 Address:[address] [place], [place] [id number] Pcp:Chaim Valle MD Subjective: * Chief Complaints: * ???Foot pain * HPI: ???Foot Pain:?Nature:?sharp , shooting , burning.?Location:?Forefoot , RIGHT.?Duration:?several months.?Onset:?gradual , denies trauma.?Course:?improved , at 80 %.?Aggrevated:?standing for long periods of time.?Treatments:?change in shoes,topical medication, pedag inserts.?Severity/Quality:?mild , States pain 2 on a scale to max of 10.? * ROS:?General/Constitutional:?Nausea?denies.?Vomiting?denies.?Hunger Thirst?denies.?Loss appetite?denies.?Chills?denies.?Fatigue?admits.?Fever?denies.?Night Sweats?denies.?Unexplained weight loss?denies.?Unexplained weight gain?denies.?HEENTM:?Dentures?denies.?Dizziness?denies.?Glasses/contacts?admits.?Retinopathy?de nies.?Blurred/double vision?denies.?TMJ?denies.?Discharge/drainage?denies.?Implants?denies.?Sore throat?denies.?Dental implants?denies.?Hard of hearing ?denies.?Difficulty chewing/swallowing/speaking?denies.?Nose bleeds?denies.?Sore mouth?denies.?Respiratory:?On Oxygen?denies.?Pneumonia/pleurisy?denies.?Bronchitis?denies.?Emphysema?denies.?C oughing?admits.?Cough blood?denies.?Shortness of breath?admits.?Wheezing?admits.?Cardiovascular:?Pacemaker?denies.?MVP?denies.?WPW?denies.?CHF?denies.?Heart attack?denies.?Septal defect?denies.?Rapid beat?denies.?Chest pain ?denies.?Atrial Fib.?admits.?Murmur/Palpitations?denies.?Gastrointestinal:?Hemorrhoids?admits.?Stomach/Abdominal pain?admits.?Dark blood stool?denies.?Irritable bowel ?admits.?Constipation?denies.?Diarrhea?denies.?Hematology:?Swelling?admits.?Clots?denies.?Varicose Veins?denies.?Bruising?denies.?Bleeding problem?denies.?Genitourinary:?Blood urine?denies.?Frequent/Painfu/urination/bladder control?denies.?Kidney stones?denies.?Infection (UTI)?denies.?Nephropathy?denies.?sex trans dis (STD)?denies.?Prostate?denies.?Musculoskeletal:?Hammertoes?denies.?Bunions?denies.?Back Pain?admits.?Muscle Cramps/ Resting?admits.?Muscle cramps / walking?denies.?Generalized aches and pains?admits.?Weakness?denies.?Integ.:?Wilhelm?denies.?Scars?denies.?Corns/calluses?denies.?Ingrown nails?admits.?Painful nails?denies.?Open Sores?denies.?Rashes?denies.?Neurologic:?Difficulty sleeping?admits.?Brain disorder?denies.?Numbness?denies.?Balance trouble?admits.?Confusion?denies.?Fainting/blackouts?denies.?Tingling?denies.?Tr emors?denies.? * Medical History:? * Surgical History:?cardiac ab lasion 07/09/2022owel resection 2007tonsillectomy 1953Fatty tumor removal 1988 * Hospitalization/Major Diagno stic Procedure:?No Hospitalization History. * Family History:?Mother: dece ased, foot problems, diagnosed with Family history of arthritis.?Father: , diagnosed with Diabetic - NIDDM, Unspecified heart disease, Unspecified essential hypertension.?Paternal Grand Father: diagnosed with Family history of arthritis.?Maternal Grand Father: diagnosed with Family history of arthritis.?Siblings: diagnosed with Diabetic - NIDDM, Unspecified essential hypertension.? * Social History:?Tobacco Use:?Tobacco Use/Smoking?Are you a:?former smoker ?Additional Findings: Tobacco Non-User?Current non-smoker ?Tobacco use other than smoking?Are you an other tobacco user??No ???Drugs/Alcohol:?Drugs?Have you used drugs other than those for medical reasons in the past 12 months??No ?Alcohol Screen?Did you have a drink containing alcohol in the past year??No ?Points?0 ?Interpretation?Negative ???Miscellaneous:?no Caffeine. ?no Children. ?Exercise: yes, walking. ?Marital status: . 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 * Medications:?TakingMetoprolo l Tartrate 50 MG Tablet 1 tablet with food Orally dailyXarelto 20 MG Tablet Oral Sertraline HCl 50 MG Tablet TAKE 1 TABLET BY MOUTH EVERY DAY Oral Levothyroxine Sodium 175 MCG Tablet Oral Wixela Inhub 250-50 MCG/ACT Aerosol Powder Breath Activated Inhalation ProAir HFA Rizatriptan Benzoate 10 MG Tablet Oral , Notes: PRNClaritin 10 MG Tablet 1 tablet Orally Once a dayTaking Metoprolol Tartrate 50 MG Tablet 1 tablet with food Orally dailyTaking Xarelto 20 MG Tablet Oral Taking Sertraline HCl 50 MG Tablet TAKE 1 TABLET BY MOUTH EVERY DAY Oral Taking Levothyroxine Sodium 175 MCG Tablet Oral Taking Wixela Inhub 250-50 MCG/ACT Aerosol Powder Breath Activated Inhalation Taking ProAir HFA Taking Rizatriptan Benzoate 10 MG Tablet Oral , Notes: PRNTaking Claritin 10 MG Tablet 1 tablet Orally Once a dayNot-Taking/PRNAmiodarone HCl 100 MG Tablet 1 tablet Orally Once a dayMedication List reviewed and reconciled with the patientNot-Taking/PRN Amiodarone HCl 100 MG Tablet 1 tablet Orally Once a dayMedication List reviewed and reconciled with the patient * Allergies:?Bactrim: Facial S wellingAspirin: Facial SwellingAdvil: Facial SwellingShellfish-derived Products: hivesIodinated Diagnostic Agentsyes[Allergies Verified] Objective: * Vitals:?Ht: 5 ft 8 in, Wt: 2 00, BMI:30.41, Shoe size: 8.5. * Examination: ???Neuroma Pain: ?PALPATION:?MINOR Pain with direct palpation of the intermetatarsal space,Minor?Pain with lateral compression of metatarsals , 3rd interspace , RIGHT.? Assessment: * Assessment: 1.?Pain of toe of right foot - M79.674?2.?Camacho's neuroma of right foot - G57.61 (Primary), Acute problem, Stable (1=3)? Plan: * Treatment: * Procedure Codes:? * Preventive Medicine:? ??Counseling:?Discussion:?-13: Office or other outpatient visit for the evaluation and management of an established patient, which required a medically appropriate history and/or examination and LOW level of DECISION MAKING for: 1 STABLE ACUTE UNCOMPLICATED PROBLEM, 2 OR MORE MINOR PROBLEMS, OR 1 STABLE CHRONIC PROBLEM, THAT POSE(S) A LOW RISK FOR MORBIDITY/MORTALITY. The visit on the day of the encounter encompassed interpreting the data and educating the patient as to the nature of their condition, treatment options available according to their individual PMH, meds, allergies, and overall health/living conditions, as well as any potential risks or complications that may occur from a failure to adhere to, and participate in, the recommended course of therapy. The discussion included a complete verbal, and/or written explanation of the examination results, any x-rays taken, the proposed diagnosis, and outline of the treatment plan. A schedule for future care needs was also explained. The patient verbalized an understanding of the instructions at this time and agreed to be an active participant in their treatment. If the patient should think of any questions or concerns after the visit, I have encouraged the patient to call the office, Given recent successful results to treatment, The patient wishes to continue with the present treatment plan for their condition.WE defer injection therapy recomm. topical medication as needed.? * Follow Up:?prn * Images: * Sign off status: Completed true * Provider:?Giselle Castelan DPM Date:?2022 Generated for Vandana oconnell/Tigre/eTransmitting on:?07/21/2024 12:12 PM EST History and Physical Notes * HPI (History of Present Illness) Category Sub-Category Detail Notes Category Not es Foot Pain Nature: sharp , shooting , burning Location: Forefoot , RIGHT Duration: several months Onset: gradual , denies tra [place] Course: improved , at 80 % Aggravated: standing for long pe riods of time Treatments: change in shoes,topi juan medication, pedag inserts Severity/Quality: mild , States pain 2 on a scale to max of 10 Examination Category Sub-Category Detail Notes Category Not es Neuroma Pain PALPATION: MINOR Pain with direct palpation of the intermetatarsal space,Minor Pain with lateral compression of metatarsals , 3rd interspace , RIGHT
--- OUTSIDE RECORDS SUMMARY | 2024-07-21 12:12 | XMS_ITS ---
Author Organization [facility] Address [address] [place] [address] Care Team Providers Care Reproductive Endocrinologist Name Role Phone Chaim Valle MD Primary Care Provider Unavail able Black, Giselle Unavailable [phone] Allergies Allergen (clinical drug ingredient) Drug/Non Drug Allergy documented on EMR Reaction Allergy Type Onset Date Status Contrast w/ dye (uncoded) Hives, Shorten of Breath & Rash Allergy Active ibuprofen Advil Facial Swelling Drug Allergy Active aspirin Aspirin Facial Swelling Drug Allergy Active sulfamethoxazole / trimethoprim Bactrim Facial Swelling Drug Allergy Active Shellfish (FN) Shellfish-derived Products hives Drug Allergy Active Results Component Value Reference Range Notes X ray : Foot, right 3V Reviewed date:01/18/2023 11:57:30 AM Interpretation:See Examination above Performing Lab: Notes/Report: See Examination above REASON FOR VISIT Foot pain, Painful nail(s) aggrevated by shoes causing difficulty standing/walking Medications Medication SIG (Take, Route, Frequency, Duration) Notes Start Date End Date Status Wixela Inhub 250-50 MCG/ACT Inhalation for 30 Days Active ProAir HFA 12/27/2022 Active Levothyroxine Sodium 175 MCG Oral for 90 Days Active Rizatriptan Benzoate 10 MG Oral for 23 Days PRN Active Claritin 10 MG 1 tablet Orally Once a day for 30 day(s) 12/27/2022 Active Amiodarone HCl 100 MG 1 tablet Orally On ce a day for 30 day(s) 12/27/2022 Active Sertraline HCl 50 MG TAKE 1 TABLET BY [facility] EVERY DAY Oral for 90 Days Active Xarelto 20 MG Oral for 90 Days Active Social History [...] Are you an other tobacco user? 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 Problem Camacho's neuroma of left foot (54552496895400 5) Camacho's neuroma of left foot (G57.62) Active confirmed Problem 930880225 Hammer toe of right foot (M20.41) Active confirmed Vital Signs Height 5 ft 8 in in 01/18/2023 Weight 200 lbs 01/18/2023 BMI 30.41 kg/m2 01/18/2023 Procedures Procedure Date Ordered Date Performed Result Body Sit e 20289-NMOFSSS NAIL, 1-5 01/18/2023 N/A Encounters Encounter Location Date Provider Diagnosis [facility] [address] [address] 01/18/2023 Giselle Black Camacho's neuroma of right foot G57.61 ; Pain of toe of right foot M79.674 ; Onychomycosis B35.1 ; Hammer toe of right foot M20.41 ; Pain of toe of left foot M79.675 and Neuritis M79.2 Assessments Encounter Date Diagnosis (ICD Code) Assessment Notes Treatment Notes Treatment Clinical Notes Section Notes 01/18/2023 Camacho's neuroma of right foot (ICD-10 - G57.61) 01/18/2023 Pain of toe of right foot (ICD-10 - M79.674) 01/18/2023 Onychomycosis (ICD-10 - B35.1) 01/18/2023 Hammer toe of right foot (ICD-10 - M20.41) 01/18/2023 Pain of toe of left foot (ICD-10 - M79.675) 01/18/2023 Neuritis (ICD-10 - M79.2) Plan Of Treatment Pending Test Test Name Order Date 82728-YNMORYN NAIL, 1-5 01/18/2023 Next Appt Details Follow Up: 6 Weeks, Reason: Procedure Notes * Category Sub-Category Detail Notes Debride Nails 1-5 Procedure: Nail debrideme nt performed extensively to reduce/remove overall nail length and girth, subungual debris, and necrotic tissue, by manual and electrical means with use of a nail nipper and/or dremel, to more viable healthy nail plate or bed tissue 1-5. Silver nitrate used for any petechial bleeding as necessary. Patient chooses, no pharmaceutical tx (16776) Progress Notes * Davida TAYLOR LDOB: [birth year] (72 yo F)Acc No.[id number]:01/18/2023 Progress Notes Patient:?Lennox Taylorkeyana Lizama Provider:?Giselle Castelan DPM :1950???Age:72 Y???Sex:Female D ate:01/18/2023 Address:[address] [place], [place] [id number] Pcp:Chaim Valle MD Subjective: * Chief Complaints: * ???Foot painPainful nail(s) aggrevated by shoes causing difficulty standing/walking * HPI: ???Foot Pain:?Nature:?sharp , shooting , burning.?Location:?Forefoot , RIGHT.?Duration:?several months.?Onset:?gradual , denies trauma.?Course:?worse.?Aggrevated:?shoes.?Treatments:?change in shoes,topical medication.?Severity/Quality:?severe, States pain 10 on a scale to max of 10.?Painful Nails:?Pt States Last PCP Visit:?Date:?08/16/2022 * ROS:?General/Constitutional:?Nausea?denies.?Vomiting?denies.?Hunger Thirst?denies.?Loss appetite?denies.?Chills?denies.?Fatigue?admits.?Fever?denies.?Night Sweats?denies.?Unexplained weight loss?denies.?Unexplained [...] tumor removal 1988 * Hospitalization/Major Diagno stic Procedure:?Denies Past Hospitalization * Family History:?Mother: dece ased, foot problems, diagnosed with Family history of arthritis.?Father: , diagnosed with Diabetic - NIDDM, Unspecified essential hypertension, Unspecified heart disease.?Paternal Grand Father: diagnosed with Family history of [...] ?Marital status: . ?Occupation: weeks/months/years, Retired - [employer]. * Medications:?TakingXarelto 2 0 MG Tablet Oral Amiodarone HCl 100 MG Tablet 1 tablet Orally Once a daySertraline HCl 50 MG Tablet TAKE 1 TABLET BY MOUTH EVERY DAY Oral Levothyroxine Sodium 175 MCG Tablet Oral Wixela Inhub 250-50 MCG/ACT Aerosol Powder Breath Activated Inhalation ProAir HFA Rizatriptan Benzoate 10 MG Tablet Oral , Notes: PRNClaritin 10 MG Tablet 1 tablet Orally Once a dayMedication List reviewed and reconciled with the patientTaking Xarelto 20 MG Tablet Oral Taking Amiodarone HCl 100 MG Tablet 1 tablet Orally Once a dayTaking Sertraline HCl 50 MG Tablet TAKE 1 [...] Allergies:?Bactrim: Facial S wellingAspirin: Facial SwellingAdvil: Facial SwellingContrast w/ dye: Hives, Shorten of Breath & RashShellfish-derived Products: hivesyes[Allergies Verified] Objective: * Vitals:?Ht: 5 ft 8 in, Wt:20 0, BMI:30.41, Shoe size: 8.5, Ht-cm: 172.72 cm, Wt- k.72 kg. * Examination: ???Neuroma Pain: ?PALPATION:?Pain with direct palpation of the intermetatarsal space, Pain with lateral compression of metatarsals , 3rd interspace , RIGHT.?General Examination: ?GENERAL APPEARANCE:?Reveals a pleasant, alert, well nourished, well- developed, well hydrated individual, who demonstrates proper attention to hygiene/body habitus, and is in no acute distress, Pt serves as own historian for office visit today.?ORIENTED:?person, place, and time.?Vascular: ?DP PULSES:?2/4, B/L , B/L.?PT PULSES:?2/4, B/L ,.?CAPILLARY FILL TIME:?immediate, all digits, B/L.?SKIN TEMPERTURE GRADIENT OF THE LOWER EXTERMITIES:?normal, warm to cool, proximal to distal, B/L.?Nails: ?NAILS are:?Elongated, overgrown, dystrophic, lytic, greater than 3mm thick, discolored and friable with crumbly malodorous subungual debris, with pain on palpation , TA , T5?.?Neurological: ?SENSORY:?Neurological exam reveals intact sensorium, pain sensation normal, vibration sensation intact, pinprick sensation is normal in the lower extremities, Pt relates anesthesia, burning, tingling, right forefoot.?Orthopedic: ?MUSCLE STRENGTH:?5/5 all groups in a symmetrical fashion, B/L.?DIGITAL DEFORMITIES:?Digital contracture, PIPJ, 2-5 B/L, incompl-reducible with WB, or to push-up test, no over, nor underlapping.?X-Rays: ?Views:?3 views of Foot , RIGHT , AP , LAT , LO.?Findings:?normal bone and soft tissue density consistent for patients age and sex.?Digits:?show asymmetrical joint space narrowing at the PIPJ consistent with clinical finding of hammertoe deformity.?Fracture:?Negative fractures identified.? * Physical Examination:?L2999 Supplies:?Insoles-pedag?#39.? Assessment: * Assessment: 1.?Pain of toe of right foot - M79.674?2.?Camacho's neuroma of right foot - G57.61 (Primary), Dx New problem, Prognosis Uncertain (4),Acute problem, Complicated w/ Multiple Tx Options(4)?3.?Onychomycosis - B35.1?4.?Hammer toe of right foot - M20.41?5.?Pain of toe of left foot - M79.675?6.?Neuritis - M79.2? Plan: * Treatment: 2.?Hammer toe of right foot?Imaging: X ray : Foot, right 3V?See Examination above * Procedures:?Debride Nails 1-5:?Procedure:?Nail debridement performed extensively to reduce/remove overall nail length and girth, subungual debris, and necrotic tissue, by manual and electrical means with use of a nail nipper and/or dremel, to more viable healthy nail plate or bed tissue 1-5. Silver nitrate used for any petechial bleeding as necessary. Patient chooses, no pharmaceutical tx (47833).? * Procedure Codes:?75870 NEVA MCKEON, [id number] X-RAY EXAM OF RIGHT FOOT 3V, Modifiers: 26 , RT * Preventive Medicine:? ??Counseling:?Discussion:?-04: Office or other outpatient visit for the evaluation and management of a new patient, which required a medically appropriate history and/or examination and MODERATE level of DECISION MAKING for: 1 OR MORE CHRONIC PROBLEM(S) THATS WORSENING, 2 STABLE CHRONIC PROBLEMS, A NEWLY DIAGNOSED PROBLEM WITH UNCERTAIN PROGNOSIS, AN ACUTE COMPLICATED INJURY WITH MULTIPLE TREATMENT OPTIONS, OR AN ACUTE PROBLEM WITH ACCOMPANYING SYSTEMIC SYMPTOMS, THAT POSE(S) A MODERATE RISK OF MORBIDITY. THIS CONDITION MAY ALSO INCLUDE RX DRUG MANAGEMENT, OR A DECISON FOR MINOR SURGERY. The visit on the day of the [...] have encouraged the patient to call the office.?BioMech.:?I discussed the Pts foot biomechanics with them and how it relates to their problem.?Neuroma:?The patient was counseled on the diagnosis, possible etiologies (including foot structure/foot function/nonsupportive shoes/activity), treatment options, and importance for adherence to recommendations regarding the treatment for a Neuroma. The advantages and disadvantages of the treatment options including medications available, forefoot offloading padding, mechanically accomidative orthotics, supportive shoegear with adequate forefoot width, cortisone injection(s), experimental sclerosis therapy, and surgical treatment options including nerve release, nerve relocation, and complete nerve removal were discussed in detail with each procedures outcomes and possible sequlea (i.e.failure of procedure, stump neuroma formation, infection, chronic scarring, chronic pain). Patient questions re: the potential successes of conservative vs surgical treatment options were reviewed and their answers were understood. The patient verbally confirmed a full understanding of the above , Recommended Topical analgesics including Aspercream/Voltaren gel.?Orthotics:?I explained to the patient the benefits of OT use. I explained that orthoses are medically necessary to decrease the foot pain through proper mechanical control, support of their foot, possibly prevent surgery, Prefabricated orthothes were dispensed. The inserts were comfortably fit to the patients feet in both weight-bearing and non-weight bearing attitudes. The patient was instructed to increase the amount of time they were wearing the inserts, starting with one hour the first day and gradually increasing the amount of time worn until they are using them time signal wirer and in all activities. They were asked to call the office if any signs of irritation were noted such as redness, blistering or callous formation. Instuctions were given for their usage and proper break-in/wear/care.?Shoe Gear Counseling:?The patient and I reviewed the types of shoes they should be wearing. My recommendation included obtaining a well-fitted shoe with a good supportive, non-foldable nor twistable sole, plenty of toe/room for the forefoot, and proper arch support. Based on todays examination, I recommended the patient look for new shoes, by having their feet professionally measured. We discussed that generally the best time of the day for a shoe fitting is the afternoon. Different shoes types and brands to best match the patients occupation and vocation were discussed. Specific brand selection will be up to the patient, their individual foot condition/deformities, and fit. The patient and I reviewed the standard new shoe break in period by wearing them for a few hours a day while checking for redness or sores as wear time is increased. The patient verbally confirmed to understanding the information discussed.?X-rays:?The Pt. was counseled on the x-rays, treatment options, and the importance of following all homecare instructions.? * Follow Up:?6 Weeks * Images: * Sign off status: Completed true * Provider:?Giselle Castelan DPM Date:?2022 Generated for Vandana oconnell/Tigre/Medardoitting on:?07/21/2024 12:12 PM EST History and Physical Notes * HPI (History of Present Illness) Category Sub-Category Detail Notes Category Not es Painful Nails Pt States Last PCP Visit: Date:: 08/16/2022 Foot Pain Nature: sharp , shooting , burning Location: Forefoot , RIGHT Duration: several months Onset: gradual , denies tra [place] Course: worse Aggravated: shoes Treatments: change in shoes,topi juan medication Severity/Quality: severe, States pain 10 on a scale to max of 10 Physical Examination Category Sub-Category Detail Notes Section Note s L2999 Supplies Insoles-pedag #39 Examination Category Sub-Category Detail Notes Category Not es Neuroma Pain PALPATION: Pain with direct palpation of the intermetatarsal space, Pain with lateral compression of metatarsals , 3rd interspace , RIGHT Neurological SENSORY: Neurological exa m reveals intact sensorium, pain sensation normal, vibration sensation intact, pinprick sensation is normal in the lower extremities, Pt relates anesthesia, burning, tingling, right forefoot Orthopedic DIGITAL DEFORMITIES: Digital con tracture, PIPJ, 2-5 B/L, incompl-reducible with WB, or to push-up test, no over, nor underlapping MUSCLE STRENGTH: 5/5 all groups in a symmetrical fashion, B/L General Examination GENERAL APPEARANCE: Reveals a pleasant, alert, well nourished, well-developed, well hydrated individual, who demonstrates proper attention to hygiene/body habitus, and is in no acute distress, Pt serves as own historian for office visit today ORIENTED: person, place, and t roger Vascular DP PULSES (B): 2/4, B/L , B/L PT PULSES (B): 2/4, B/L , CAPILLARY FILL TIME: immediate, all digi ts, B/L TEMPERTURE GRADIENT (C): normal, warm to cool, proximal to distal, B/L Nails NAILS are: Elongated, overg rown, dystrophic, lytic, greater than 3mm thick, discolored and friable with crumbly malodorous subungual debris, with pain on palpation , TA , T5 X-Rays - IMAGING REPORT Findings: normal b one and soft tissue density consistent for patients age and sex Fracture: Negative fractures i dentified Digits: show asymmetrical quincy int space narrowing at the PIPJ consistent with clinical finding of hammertoe deformity Views: 3 views of Foot , RI GHT , AP , LAT , LO
--- OUTSIDE RECORDS SUMMARY | 2024-07-21 12:12 | XMS_ITS | Patient Health Record ---
Author Organization [facility] Address [address] [place] [address] Care Team Providers Care Analytical Chemist Name Role Phone Leonard (RETIRED) Chaim PLUMMER Primary Care Provid er Unavailable Chaim John Unavailable [phone] ALLERGIES Allergen (clinical drug ingredient) Drug/Non Drug Allergy documented on EMR Reaction Allergy Type Onset Date Status Sulfa Unknown Drug Allergy Active aspirin Aspirin Unknown Drug Allergy Active Substance with 7-jrkskwf-4-methylglut aryl-coenzyme A reductase inhibitor mechanism of action (substance) statins (uncoded) sensitivity Allergy Active CT Scan dye (uncoded) Unknown Allergy Active REASON FOR REFERRAL No Information MEDICATIONS Medication SIG (Take, Route, Frequency, Duration) Notes Start Date End Date Status Colyte w Flavor Packs 240 GM Drink over 4 hours on the day before the colonoscopy Orally QD for 1 day(s) 06/27/2019 Active ProAir HFA 108 (90 Base) MCG/ACT 2 puffs as needed Inhalation every 4 hrs Active Vitamin D 2000 UNIT Orally Active Claritin 10 MG 1 capsule Orally Onc e a day for 30 day(s) Active Eye Vitamins Orally Active Dicyclomine HCl 10 MG 1-2 Orally Four ti mes a day prn abdominal discomfort for 30 days 04/22/2019 Active Vitamin E 400 UNIT 1 capsule Orally Onc e a day Active Advair Diskus 250-50 MCG/DOSE 1 puff Inhalation Twice a day Active Levothyroxine Sodium 175 MCG 1 tablet on an empty stomach in the morning Orally Once a day Active Sertraline HCl 100 MG TK 1 T PO QD Oral for 90 Active Questran 4 GM/DOSE 1 scoop in water or oj Orally QD-BID for diarrhea for 30 day(s) 02/24/2014 Active Pantoprazole Sodium 40 MG 1 tablet Orall y Once a day PRN Active buPROPion HCl ER (XL) 300 MG 1 tablet in the morning Orally Once a day Active FLUoxetine HCl 20 MG 1 capsule in the mo rning Orally Once a day Active Soiluyy-Tgljrbisl-Sdao Active SOCIAL HISTORY Sex Assigned At : Social History Observation Description Sex Assigned At Unknown PROBLEMS Problem Type ICD Code Onset Dates Problem Status W/U Status Risk SNOMED Code Notes Problem Encounter for screening for malignant neoplasm of colon (Z12.11) Active confirmed Screening for malignant neoplasm of colon (113445979) Problem History of adenomatous polyp of colon (Z86.010) Active confirmed 046064323 Problem Irritable bowel syndrome with diarrhea (K58.0) Active confirmed 144512502 Problem Diarrhea, unspecified type (R19.7) Active confirmed 99610830 Problem LLQ discomfort (R10.32) Active confirmed 455385051 PLAN OF TREATMENT Future Test Test Name Order Date COLONOSCOPY 02/24/2014 COLONOSCOPY 04/22/2019 Next Appt Details Provider Name:Chaim Janet John , 07/22/2024 10:10:00 AM, [address] [place] [address], [address], [place], [address], Insurance Providers Payer Name Payer Address Payer Phone Subscriber Number Group Number Insured Name Patient Relationship to Insured Coverage Start Date Coverage End Date MEDICARE OF [place] [address] [facility] [place] [address] [id number] CARLOS PEDERSEN Self - patient is the insured [facility] [employer] [address] [place], [place] [address] [id number] CARLOS PEDERSEN Self - patient is the insured MEDICAL (GENERAL) HISTORY Medical History History ICD Code Asthma/COPD Depression Hypothyroidism GERD--EGD in 11/2010 with a s mall to moderate-sized HH--no esophagitis nor [facility] Den[facility] [place],CVA,renal disease [place] villous adenoma with high-grade dysplasia in cecum--surgery as below; F/U colonoscopy in 11/2010 and 04/2014 was negative Elevated cholesterol Sleep apnea on a sleep study, but doesn' t use any CPAP Surgical History Surgery Date(Month/Year) Right colectomy in 2007 for a villous ad enoma Lipoma removed from back tonsillectomy
--- OUTSIDE RECORDS SUMMARY | 2024-07-21 12:13 | XMS_ITS ---
Author Organization Chaim Valle DO, FACP Address [address], [place] [id number] Care Team Providers Care Commercial Insurance Underwriter Name Role Phone Chaim Valle DO Primary Care Provider Unavail able Chaim Valle Unavailable [phone] REASON FOR VISIT told patient to call MEDICATIONS Medication SIG (Take, Route, Fr equency, Duration) Notes Start Date End Date Status Fluconazole 150 MG 1 tablet Orally Once a day for 1 days 04/02/2024 Active Encounters Encounter Location Date Provider Diagnosis Chaim Valle DO [address] [id number] 04/02/2024 Chaim Valle PLAN OF TREATMENT Medication Medication Name Sig Start Date Stop Date Notes Fluconazole 150 MG 1 tablet Orally Once a day for 1 days 1 06/02/2023
--- OUTSIDE RECORDS SUMMARY | 2024-07-21 12:13 | XMS_ITS ---
Author Organization Chaim Valle DO, FACP Address [address] [place], [place] [id number] Care Team Providers Care Car Bracer Name Role Phone Chaim Valle DO Primary Care Provider Unavail able Chaim Valle Unavailable [phone] ALLERGIES Allergen (clinical drug ingredient) Drug/Non Drug Allergy documented on EMR Reaction Allergy Type Onset Date Status ezetimibe Zetia muscle pain, joint pain Drug Allergy Active sulfa breathing problems, angioedema Drug Allergy Active ibuprofen Ibuprofen facial swelling Drug Allergy A ctive CT dye (uncoded) rash Allergy Act miriam REASON FOR REFERRAL Reason F/U Colonoscopy Diagnosis 1 Colon cancer screeni ng (Z12.11) Referral Organization Chaim Álvarez FACP Referring Provider First Name Chaim Referring Provider Last Name Leonard Referring Provider Speciality Internal M edicine Referred Provider Chaim John Referred Provider Specialty Gastroentero logy General Notes Tiny Roldan 4 03:26:35 PM EDT > Referral faxed prior to scheduling Referral Priority Routine Reason Right shoulder pain Diagnosis 1 Pain, joint, shoulde r, right (M25.511) Referral Organization Chaim Álvarez FACP Referring Provider First Name Chaim Referring Provider Last Name Leonard Referring Provider Speciality Internal M edicine Referred Provider Jeremie Spangler Referred Provider Specialty Orthopedic S urgery Referral Priority Routine REASON FOR VISIT Follow up hypercholesterolemia, hypothyroidism MEDICATIONS Medication SIG (Take, Route, Frequency, Duration) Notes Start Date End Date Status Levothyroxine Sodium 175 MCG 1 tablet in the morning on an empty stomach, 2 tablets on Wednesdays and Sundays Orally Once a day Active Pantoprazole Sodium 40 MG 1 tablet as ne eded Orally Once a day Active Xarelto 20 MG 1 tablet with food Orally Once a day Active Sertraline HCl 50 MG 1 tablet Orally Onc e a day Active Claritin 10 MG 1 tablet Orally Once a day Active LORazepam 1 MG 1 tablet at bedtime as needed Orally Once a day 12/20/2016 Active Atorvastatin Calcium 20 MG 1 tablet Oral ly Once a day for 30 day(s) 03/18/2024 Active Metoprolol Succinate ER 50 MG 1 tablet Orally Once a day Active Wixela Inhub 250-50 MCG/ACT 1 puff Inhal ation Twice a day Active Albuterol Sulfate HFA 108 (90 Base) MCG/ACT 2 puffs as needed Inhalation every 4 hrs Active Rizatriptan Benzoate 10 MG 1 tablet as n eeded Orally Once a day 12/23/2021 Active SOCIAL HISTORY Tobacco Use: Social History Observation Description Date Details (start date - stop date) Former Smoker NA - NA Sex Assigned At : Social History Observation Description Sex Assigned At Unknown Tobacco Use/Smoking Question Answer Notes Patient is a former smoker How long has it been since y ou last smoked? > 10 years Additional Findings: Tobacco Non-User Fo rmer smoker, currently using no form of tobacco Alcohol Screen Question Answer Notes Did you have a drink contain ing alcohol in the past year? Yes How often did you have a dri nk containing alcohol in the past year? 4 or more times a week (4 points) How many drinks did you have on a typical day when you were drinking in the past year? 1 or 2 drinks (0 point) How often did you have 6 or more drinks on one occasion in the past year? Never (0 point) Points 4 Interpretation Positive PROBLEMS Problem Type ICD Code Onset Dates Problem Status W/U Status Risk SNOMED Code Notes Problem Chronic obstructive pulmonary disease, unspecified COPD type (J44.9) Active confirmed 35108238 VITAL SIGNS BMI 29.34 kg/m2 03/18/2024 Blood pressure systolic 122 mm Hg 03/18/20 24 Blood pressure diastolic 72 mm Hg 024 Height 68.00 in 03/18/2024 Weight 193 lbs 03/18/2024 Encounters Encounter Location Date Provider Diagnosis Chaim Valle DO, [facility] [address] [place], [place] [id number] 03/18/2024 Chaim Valle Acquired hypothyroid ism E03.9 ; Hypercholesterolemia E78.00 ; Depression, unspecified depression type F32.9 ; Unspecified atrial fibrillation I48.91 ; Migraine with aura and without status migrainosus, not intractable G43.109 ; Colon cancer screening Z12.11 ; Chronic obstructive pulmonary disease, unspecified COPD type J44.9 and Pain, joint, shoulder, right M25.511 ASSESSMENTS Encounter Date Diagnosis Assessment Notes Treatment Notes Treatment Clinical Notes 03/18/2024 Acquired hypothyroid ism (ICD-10 - E03.9) 03/18/2024 Hypercholesterolemia (ICD-10 - E78.00) 03/18/2024 Depression, unspecif ied depression type (ICD-10 - F32.9) 03/18/2024 Unspecified atrial fibrillation (ICD-10 - I48.91) 03/18/2024 Migraine with aura a nd without status migrainosus, not intractable (ICD-10 - G43.109) 03/18/2024 Colon cancer screeni ng (ICD-10 - Z12.11) 03/18/2024 Chronic obstructive pulmonary disease, unspecified COPD type (ICD-10 - J44.9) 03/18/2024 Pain, joint, shoulde r, right (ICD-10 - M25.511) PLAN OF TREATMENT Medication Medication Name Sig Start Date Stop Date Notes Levothyroxine Sodium 175 MCG 1 tablet in the morning on an empty stomach, 2 tablets on Wednesdays and Sundays Orally Once a day Pantoprazole Sodium 40 MG 1 tablet as ne eded Orally Once a day Xarelto 20 MG 1 tablet with food O rally Once a day Sertraline HCl 50 MG 1 tablet Orally Once a day Claritin 10 MG 1 tablet Orally Once a day LORazepam 1 MG 1 tablet at bedtime as needed Orally Once a day 12/20/2016 Atorvastatin Calcium 20 MG 1 tablet Oral ly Once a day for 30 day(s) 03/18/2024 Metoprolol Succinate ER 50 MG 1 tablet Orally Once a day Wixela Inhub 250-50 MCG/ACT 1 puff Inhal ation Twice a day Albuterol Sulfate HFA 108 (9 0 Base) MCG/ACT 2 puffs as needed Inhalation every 4 hrs Rizatriptan Benzoate 10 MG 1 tablet as n eeded Orally Once a day 12/23/2021 Pending Test Test Name Order Date LIPOPROTEIN FRACTIONATION (LIPID PANEL) 03/18/2024 PROFILE, FASTING 03/18/2024 TSH (THYROID STIMULATING HORMONE) 2023 Referrals Referral Date Details F/U Colonoscopy, Kody John Right shoulder pain, Jeremie Spangler Next Appt Details Follow Up: 6 Months, Reason: follow up visit Progress Notes * Examination Category Sub-Category Detail Notes General Examination GENERAL APPEARANCE: in no ac osman distress, well developed, well nourished HEAD: normocephalic, atrau matic HEART: S1, S2 normal, regul ar rate and rhythm LUNGS: clear to auscultatio n bilaterally ABDOMEN: normal, bowel sounds present, soft, nontender, nondistended SKIN: warm and dry EXTREMITIES: no edema PSYCH: alert, oriented, cog nitive function intact History and Physical Notes * HPI (History of Present Illness) Category Sub-Category Detail Notes Depression Screening Interpretation and Intervention Depression Screening Findings: Positve - Review of PHQ-9 found positive for depression Follow-Up for Depression: Existing Condi tion Fall Risk Fall History Have you had two or more fal ls in the past year?: No Have you had any falls with injury in th e past year?: No Fall Risk Assessment:: No falls in the p ast year Communication Needs PCMH Communication Needs - [facility] He aring Impairment?: No Vision Impairment?: Yes wears glasses fo r reading Cognitive Impairment?: No SDOH Questions SDOH Questions In the past year have you been worried about losing your housing?: No In the past year have you or any family members you live with been unable to get any of the following when it was really needed? Check all that apply:: None Consultation Request Notes Referral Date Referring Provider Referred Provider Not es 03/18/2024 Chaim Valle Robert F/U Colonos copy 03/18/2024 Chaim Valle Noah Right shoul мария pain
--- OUTSIDE RECORDS SUMMARY | 2024-07-21 12:13 | XMS_ITS ---
Author Organization Chaim aVlle DO, FACP Address [address] [place], [place] [id number] Care Team Providers Care Attendant [employer] Name Role Phone Chaim Valle DO Primary Care Provider Unavail able Chaim Valle Unavailable [phone] REASON FOR VISIT Needs call back from office MEDICATIONS Medication SIG (Take, Route, Frequency, Duration) Notes Start Date End Date Status Amoxicillin-Pot Clavulanate 875-125 MG 1 tablet with food Orally Twice a day for 7 days 03/26/2024 Active Encounters Encounter Location Date Provider Diagnosis Chaim Valle DO, FACP [address] [place] [id number] 03/26/2024 Chaim Valle PLAN OF TREATMENT Medication Medication Name Sig Start Date Stop Date Notes Amoxicillin-Pot Clavulanate 875-125 MG 1 tablet with food Orally Twice a day for 7 days 03/26/2024
--- OUTSIDE RECORDS SUMMARY | 2024-07-21 12:13 | XMS_ITS | Patient Health Record ---
[facility] Address [address] [place] [address] Care Team Providers Care Curator Of Photography And Prints Name Role Phone Chaim Valle MD Primary Care Provider Unavail able Giselle Castelan Unavailable [phone] Allergies Allergen (clinical drug ingredient) Drug/Non Drug Allergy documented on EMR Reaction Allergy Type Onset Date Status ibuprofen Advil Facial Swelling Drug Allergy Active aspirin Aspirin Facial Swelling Drug Allergy Active sulfamethoxazole / trimethoprim Bactrim Facial Swelling Drug Allergy Active Iodinated contrast media (substance) Iodinated Diagnostic Agents Unknown Drug Allergy Active Shellfish (FN) Shellfish-derived Products hives Drug Allergy Active Reason For Referral No Information Medications Medication SIG (Take, Route, Frequency, Duration) Notes Start Date End Date Status Metoprolol Tartrate 50 MG 1 tablet with food Orally daily Active Xarelto 20 MG Oral for 90 Days Active ProAir HFA 12/27/2022 Active Rizatriptan Benzoate 10 MG Oral for 23 Days PRN Active Claritin 10 MG 1 tablet Orally Once a day for 30 day(s) 12/27/2022 Active Amiodarone HCl 100 MG 1 tablet Orally On ce a day for 30 day(s) 12/27/2022 Not-Taking Sertraline HCl 50 MG TAKE 1 TABLET BY [facility] EVERY DAY Oral for 90 Days Active Levothyroxine Sodium 175 MCG Oral for 90 Days Active Wixela Inhub 250-50 MCG/ACT Inhalation for 30 Days Activ e Social History Tobacco Use: Social History Observation [...] Problem Status W/U Status Risk Notes Problem 586582914 Hammer toe of right foot (M20.41) Active confirmed Problem Camacho's neuroma of right foot (77257681851100 8) 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 Problem Camacho's neuroma of left foot (54390285022395 5) Camacho's neuroma of left foot (G57.62) Active confirmed Plan Of Treatment Pending Test Test Name Order Date [id number] NAIL, 1-5 01/18/2023 Insurance Providers Payer Name Payer Address Payer Phone Subscriber Number Group Number Insured Name Patient Relationship to Insured Coverage Start Date Coverage End Date Medicare [employer] [address] [place] [address] [id number] Davida Taylor Self - patient is the insured A[employer] Secondary to Medicare [address] [place] [id number] Davida Taylor Self - patient is the insured Medical (General) History Medical History History ICD Code Arthritis asthma Back,Hip,and Knee pain CAD (Cholesterol) Cataracts covid-19 Depression Diverticulosis Headaches/Migraines Heart disease Measles Chicken pox Surgical History Surgery Date(Month/Year) cardiac ablasion 07/09/2022 bowel resection 2007 tonsillectomy 195 Fatty tumor removal 1988
--- OUTSIDE RECORDS SUMMARY | 2024-07-21 12:13 | XMS_ITS ---
Author Organization [facility] Address [address] [place] [address] Care Team Providers Care Assigner Name Role Phone Chaim Valle MD Primary Care Provider Unavail able Black, Giselle Unavailable [phone] REASON FOR VISIT buy Pedag OTs #[id number] [id number] Encounters Encounter Location Date Provider Diagnosis [facility] [address] [place] [address] 01/18/2023 Giselle Black Plan Of Treatment No Information Progress Notes * Davida TAYLOR LDOB: [birth year] (72 yo F)Acc No.[id number]:01/18/2023 Patient:?Davida Taylor :1950???Age:72 Y???Sex:Female Address:[address] [place] [address], [id number] * true * Date:? Generated for Printi ng/Fafridag/eTransmitting on:?07/21/2024 12:12 PM EST
== END 2024-07-21 11:10 | disposition home or self-care (01) ==
PROVIDERS: PCP Internal Medicine; Visit Provider Internal Medicine Cardiovascular Disease
DX: I48.0 Paroxysmal atrial fibrillation (principal)
CPT/HCPCS: 93010; 99214; G2211

== ENCOUNTER → 2024-07-21 10:46 | Outpatient (BNVA) | payer MEDICARE, SELFPAY | PROVIDERS: PCP Internal Medicine; Visit Provider Internal Medicine Cardiovascular Disease | DX: I48.0 Paroxysmal atrial fibrillation (principal); I44.0 Atrioventricular block, first degree | CPT/HCPCS: 93005; 99212 ==

== ENCOUNTER 2024-11-05 10:58 | Outpatient (AMB) | payer MEDICARE, SELFPAY ==
--- NOTE | 2024-11-05 11:07 | MHC.PC.OV ---
Vital Signs 11/05/24 11:13 Height 5 ft 6.54 in Weight 192 lb BMI 30.5 BP 132/67 Blood Pressure Location Rt brachial Position Sitting Respiration 12 Pulse 55 Pulse Source Pulse Oximeter Temp 97.2 F Temp Source Temporal Artery Scan Pulse Oximetry (%) 96 Oxygen Delivery Method Room Air Intake Visit Reasons: follow up Meteorologist In Charge Required: No Accompanied by: Self / Same As Patient Allergies amoxicillin [From AUGMENTIN] Allergy (Unknown, Verified 11/05/24 12:56) SEVERE SHARRON-RECTAL REDNESS,INFLAMMATION aspirin [ASPIRIN] Allergy (Unknown, Verified 11/05/24 12:56) FACIAL SWELLING clavulanic acid [From AUGMENTIN] Allergy (Unknown, Verified 11/05/24 12:56) SEVERE SHARRON-RECTAL REDNESS,INFLAMMATION ibuprofen Allergy (Unknown, Verified 11/05/24 12:56) anaphylaxis Iodinated Contrast Media [IV CONTRAST] Allergy (Unknown, Verified 11/05/24 12:56) RASH,SOB Nrzbuau-NXE-UjD Reductase Inhibitor [WXGOXRP-UVM-LAC REDUCTASE INHIBITOR] Allergy (Unknown, Verified 11/05/24 12:56) MUSCLE ACHING Sulfa (Sulfonamide Antibiotics) [SULFA (SULFONAMIDE ANTIBIOTICS)] Allergy (Unknown, Verified 11/05/24 12:56) RASH,SOB, ANGIOEDEMA animal dander Allergy (Unknown, Uncoded 11/05/24 12:56) Unknown pollen Allergy (Unknown, Uncoded 11/05/24 12:56) Unknown shellfish Allergy (Unknown, Uncoded 11/05/24 12:56) breathing difficulty, rash Medication List - Last Reconciled 11/05/24 by Nan Chaney PA-C albuterol sulfate 90 mcg/actuation 0 mcg inhalation cetirizine 10 mg PO fluticasone propion-salmeterol 250-50 mcg/dose (Wixela Inhub) 1 puff inhalation BID levothyroxine 175 mcg PO DAILY metoprolol succinate ER 50 mg PO DAILY pantoprazole 40 mg PO DAILY MDD GERD rivaroxaban (Xarelto) 20 mg PO DAILY rizatriptan 10 mg PO DAILY PRN sertraline 50 mg PO DAILY Tobacco use date assessed: 11/05/24 Fall risk assessment: No Falls in past year Last assessed Fall Risk: 11/05/24 Dental Screening Dental Screen Date: 11/05/24 Did you have a dental visit in the last 12 months?: Yes Did you have a dental problem in the last 6 months where you did not have access to dental care?: No Was dental information given to patient?: Patient has dentist HPI follow up HPI Details The patient is a 74-year-old female presenting to establish a new primary care provider due to her primary care provider Dr. Valle retired along with a request for medication refill and ongoing management of chronic conditions, notably asthma, atrial fibrillation, hyperlipidemia, and migraines. She confirms long-standing use of medications for asthma, atrial fibrillation, and hypothyroidism, reporting intolerance to statins due to adverse joint pain. She denies hypertension despite prior concern related to leg swelling. The patient's asthma is managed with albuterol, noting chronic shortness of breath without recent exacerbation. Hyperlipidemia management is challenged by her intolerance to statins, exploring new treatment options due to joint pain. Her migraines, characterized by aura, have recently increased in frequency due to stress, successfully managed with early administration of rizatriptan, alleviating attacks but often leaving residual symptoms. Diagnosed with several conditions, including sleep apnea and osteoarthritis, she remains active, balancing caregiver responsibilities which may contribute to current ailments. Diagnostic evaluation continues for her multitudes of conditions, including recent referrals for bone density scans, mammograms, and upcoming colonoscopy. Social History - , providing care for her who recently had hip replacement surgery. - Former smoker with a 10-year history, ceased smoking several years ago. 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 - Family history of high cholesterol; reports adverse joint reactions to statins. - No current use of psychiatric services, although expressed interest in therapy. - Experiences stress related to increased caregiving responsibilities. [facility] Medical History (Updated 11/05/24 @ 13:15 by Nan Chaney PA-C) Obesity with body mass index (BMI) of 30.0 to 39.9 Calcification of aortic valve Mitral annular calcification Tricuspid valve regurgitation Sleep apnea Migraine headache with aura Asthma Depression History of mammogram (~06/07/23) Osteoarthritis Diverticulosis Environmental allergies Restless leg syndrome Obstructive sleep apnea Cecal polyp Menopause Hiatal hernia GERD (gastroesophageal reflux disease) Mild hypercholesterolemia Hypothyroidism Establishing care with new doctor, encounter for Persistent atrial fibrillation Surgical History History of colonoscopy (~09/27/19) H/O wisdom tooth extraction History of partial colectomy S/P excision of lipoma History of tonsillectomy History of cardiac radiofrequency ablation History of colon resection Family History Father CAD (coronary artery disease) Afib Mother Afib Brother Afib Social History Housing: House Alcohol intake: current Alcohol intake frequency: a few times a week Alcohol type: wine Patient Tobacco Use Status: Former Tobacco user Tobacco use type: Cigarette service: No Current occupational status: retired Cognitive needs: No Hearing needs: No Vision needs: Yes (reading glasses) Questionnaire PHQ-9 Over the last 2 weeks, how often have you been bothered by any of the following problems? 1. Little interest or pleasure in doing things: more than half the days 2. Feeling down, depressed, or hopeless: nearly every day 3. Trouble falling or staying asleep, or sleeping too much: nearly every day 4. Feeling tired or having little energy: nearly every day 5. Poor appetite or overeating: not at all 6. Feeling bad about yourself - or that you are a failure or have let yourself or your family down: several days 7. Trouble concentrating on things, such as reading the newspaper or watching television: not at all 8. Moving or speaking so slowly that other people could have noticed. Or the opposite - being so fidgety or restless that you have been moving around a lot more than usual: not at all 9. Thoughts that you would be better off or of hurting yourself in some way: not at all Total score: 12 Depression Screening Interpretation: Positive Depression Screening Follow-up: Existing condition, In treatment and Other (referral placed for psychiatrist) Depression Screening Done: Yes 90749 - PHQ-9 Billing: Yes Source: Developed by Drs. Chaim Carl, Lo Desir, Ok Girard and colleagues, with an educational latonia from [employer]. Thrive Questionnaire Date Thrive assessed: 11/05/24 I am a: Patient What is your living situation today?: I have a steady place to live Within the past 12 months, did the food you bought not last and you didn't have the money to get more?: Never true Within the past 12 months, did you worry whether your food would run out before you got money to buy more?: Never true Do you have trouble paying for medicines?: No Do you have trouble getting transportation to medical appointments?: No Do you have trouble paying your heating and electricity bill?: No Do you have trouble taking care of your child, family member or friend?: No Do you have trouble with day-to-day activities such as bathing, preparing meals, shopping, managing finances, etc.?: No Are you currently unemployed and looking for a job?: No Are you interested in more education?: No Please select the resources that you would like help with: None THRIVE Score: 0 AUDIT C Alcohol Use Questionnaire (AUDIT-C) 1. How often do you have a drink containing alcohol?: 2-3 times a week 2. How many drinks containing alcohol do you have on a typical day when you are drinking?: 1 or 2 3. How often do you have six or more drinks on one occasion?: Never Total Score: 3 Score Reviewed/Action Taken: No LINNEA-7 AMB Questionnaire LINNEA-7 Date LINNEA - 7 assessed: 11/05/24 Feeling nervous, anxious, or on edge: 3 = Nearly every day Not being able to stop or control worryin = Several days Worrying too much about different things: 1 = Several days Trouble relaxin = Not at all Being so restless that it is hard to sit still: 0 = Not at all Becoming easily annoyed or irritable: 1 = Several days Feeling afraid as if something awful might happen: 1 = Several days Total LINNEA-7 score (0-4 normal; 5-9 mild; 10-14 moderate; 15-21 severe): 7 Source: Developed by Drs. Chaim Carl, Lo Desir, Ok Girard and colleagues, with an educational latonia from [employer]. LINNEA-7 Assessment Billing LINNEA-7 Assessment Tool: LINNEA-7 Assessment 41993 Review of Systems Const Details: - Cardiovascular: Denies chest pain; reports history of atrial fibrillation. - Respiratory: Reports chronic shortness of breath; denies current cough or wheeze. - Neurological: Reports migraines with aura; denies dizziness or syncope. - Psychological: Reports increased stress; denies depression or anxiety. - Gastrointestinal: Reports gastroesophageal reflux; managed with pantoprazole. - Musculoskeletal: Reports joint pain related to statin use; managed condition noted. - ENT: Reports seasonal allergic rhinitis; denies current nasal congestion. - General: Denies unintentional weight loss or gain. Physical exam (Primary Care) Vital Signs: Last Vital Signs Temp 97.2 F 11/05/24 11:13 Pulse 55 11/05/24 11:13 Resp 12 11/05/24 11:13 BP 132/67 11/05/24 11:13 Pulse Ox 96 11/05/24 11:13 Oxygen Delivery Method Room Air 11/05/24 11:13 Care Plan Goal for BP management: <140/90 at Goal BMI result Body Mass Index 30.5 BMI Assessment/Plan discussion: High BMI High, discussed plan: lifestyle, weight reduction, dietary, physical activity and alcohol moderation Tobacco/Smoking Status: Tobacco use Status Tobacco use date assessed 11/05/24 11/05/24 11:13 Patient Tobacco Use Status Former Tobacco user 11/05/24 11:20 Tobacco use type Cigarette 11/05/24 11:20 PHQ-9: PHQ-9 Score PHQ-9: Total score 12 11/05/24 11:36 Depression Screening Interpretation: Positive Depression Screening Follow-up: Existing condition, In treatment and Other (referral placed for psychiatrist) Thrive Assessment: Date of Thrive Assessment Date Thrive assessed 11/05/24 11/05/24 11:13 Const Other: Appearance: Alert. Oriented X3. No acute distress. Head: Normal external exam. Normocephalic. Atraumatic. Eyes: Pupils are equal, round, and reactive to light. Extraocular movements intact. Conjunctiva and sclera normal. Eyelids normal. Ears: External auditory canal normal. Tympanic membranes normal. Throat: Pharynx normal. Uvula midline. Moist mucous membranes. Neck: Normal inspection. Neck supple. Full range of motion. No adenopathy. Thyroid Normal. No meningeal signs. No neck mass noted. Cardiovascular: Normal heart rate and rhythm. Heart sound normal. No murmurs noted. Pulses normal throughout. Respiratory: No respiratory distress. Painless inspiration. Breath sounds normal. No wheezes/rales/rhonchi noted. Chest nontender. No accessory muscle usage noted or decreased air movement noted. Abdomen: Soft and nontender. Bowel sounds normal in all 4 quadrants. No distention noted. No organomegaly noted. No visible injury noted. Back: No costovertebral angle tenderness. Full range of motion noted. Skin: Skin warm and dry. Normal skin color. Normal skin turgor. No rashes/lesions/lacerations noted. Extremities: No lower extremity edema. Extremities exhibit normal range of motion. Extremities nontender. Neuro: Oriented X 3. No motor deficit. No sensory deficit. Reflexes normal. Results Reviewed Results Reviewed: - Labs: Previous white blood cell, red blood cell count, platelets normal. - Lipids: Total cholesterol 270 mg/dL, LDL 160 mg/dL, triglycerides 225 mg/dL. - Glucose: Fasting glucose elevated, further monitoring planned. - Imaging: Echocardiogram noted tricuspid valve regurgitation. Coding Level of Care Code New Pt Level 4 (70837) Complex EM visit Add On G2211 Diagnoses Establishing care with new doctor, encounter for Z76.89 Asthma J45.909 Paroxysmal atrial fibrillation I48.0 Hypothyroidism E03.9 GERD (gastroesophageal reflux disease) K21.9 Migraine headache with aura G43.109 Sleep apnea G47.30 Osteoarthritis M19.90 Restless leg syndrome G25.81 Diverticulosis K57.90 Tricuspid valve regurgitation I07.1 Mitral annular calcification I34.81 Calcification of aortic valve I35.9 Obesity with body mass index (BMI) of 30.0 to 39.9 E66.9 Additional Codes LINNEA-7 Assessment Billing - LINNEA-7 Assessment Tool: LINNEA-7 Assessment 95646 ([id number]) PHQ-9 - 53636 - PHQ-9 Billing: Yes ([id number]) Assessment & Plan Assessment & Plan (1) Establishing care with new doctor, encounter for: Code(s): Z76.89 - Persons encountering health services in other specified circumstances Category: Medical (2) Asthma: Code(s): J45.909 - Unspecified asthma, uncomplicated Category: Medical Plan: The current management strategy involving albuterol will be continued to manage the patient's asthma. Monitoring of symptoms is advised. Will refer to pulmonology per patient request. Condition is chronic and stable will continue to monitor. (3) Paroxysmal atrial fibrillation: Code(s): I48.0 - Paroxysmal atrial fibrillation Category: Medical Plan: Continuation of metoprolol and Xarelto is indicated, with regular cardiology check-ups scheduled for assessment. Condition is chronic and stable will continue to monitor. (4) Hypothyroidism: Code(s): E03.9 - Hypothyroidism, unspecified Category: Medical Plan: Levothyroxine therapy is continued, with thyroid function evaluated through routine lab tests. Condition is chronic and stable continue to monitor. (5) GERD (gastroesophageal reflux disease): Code(s): K21.9 - Gastro-esophageal reflux disease without esophagitis Category: Medical Plan: Pantoprazole is continued for GERD management, complemented by lifestyle and dietary adjustments. Condition is chronic and stable continue to monitor. (6) Migraine headache with aura: Code(s): G43.109 - Migraine with aura, not intractable, without status migrainosus Category: Medical Plan: Rizatriptan treatment is maintained, addressing increased migraine frequency due to stress. Neurology referral is available if necessary. Condition is chronic and stable continue to monitor. (7) Sleep apnea: Code(s): G47.30 - Sleep apnea, unspecified Category: Medical Plan: The patient is advised to continue CPAP treatment, supported by a referral to pulmonology for further evaluation of sleep apnea severity. Condition is chronic and stable will continue to monitor. (8) Osteoarthritis: Code(s): M19.90 - Unspecified osteoarthritis, unspecified site Category: Medical Plan: Osteoarthritis management includes monitoring joint discomfort and symptomatic relief via pain medication. Condition is chronic and stable continue to monitor. (9) Restless leg syndrome: Code(s): G25.81 - Restless legs syndrome Category: Medical Plan: Symptom management through exercise and sleep hygiene is reinforced. Condition is chronic and stable will continue to monitor. (10) Diverticulosis: Code(s): K57.90 - Diverticulosis of intestine, part unspecified, without perforation or abscess without bleeding Category: Medical Plan: Nutritional intake and bowel habits are monitored for ongoing diverticulosis management. Condition is chronic and stable continue to monitor. (11) Tricuspid valve regurgitation: Code(s): I07.1 - Rheumatic tricuspid insufficiency Category: Medical Plan: Continuous cardiology follow-up is indicated to monitor any progressive changes in tricuspid valve calcification or regurgitation severity. Condition is chronic and stable continue to monitor. (12) Mitral annular calcification: Code(s): I34.81 - Nonrheumatic mitral (valve) annulus calcification Category: Medical Plan: Continue his cardiology follow-up is indicated to monitor any progressive changes to mitral annular calcification. Condition is chronic and stable continue to monitor. (13) Calcification of aortic valve: Code(s): I35.9 - Nonrheumatic aortic valve disorder, unspecified Category: Medical Plan: Continue his cardiology follow-up is indicated to monitor any progressive changes to calcification of aortic valve. Condition is chronic and stable continue to monitor. (14) Obesity with body mass index (BMI) of 30.0 to 39.9: Code(s): E66.9 - Obesity, unspecified Category: Medical Plan: Patient to improve diet and exercise regimen. Condition is chronic and stable continue to monitor. Plan Plan Patient was informed and verbally consented to the use of an ambient scribe for clinic note documentation during this visit. 1. Asthma The current management strategy involving albuterol will be continued to manage the patient's asthma. Monitoring of symptoms is advised. 2. Atrial Fibrillation Continuation of metoprolol and Xarelto is indicated, with regular cardiology check-ups scheduled for assessment. 3. Hypothyroidism Levothyroxine therapy is continued, with thyroid function evaluated through routine lab tests. 4. Hyperlipidemia Due to statin intolerance, alternative treatments such as Zetia or injections are considered; consultation with cardiology will guide further interventions. 5. Gastroesophageal Reflux Disease Pantoprazole is continued for GERD management, complemented by lifestyle and dietary adjustments. 6. Migraine Rizatriptan treatment is maintained, addressing increased migraine frequency due to stress. Neurology referral is available if necessary. 7. Sleep Apnea The patient is advised to continue CPAP treatment, supported by a referral to pulmonology for further evaluation of sleep apnea severity. 8. Osteoarthritis Osteoarthritis management includes monitoring joint discomfort and symptomatic relief via pain medication. 9. Restless Leg Syndrome Symptom management through exercise and sleep hygiene is reinforced. 10. Diverticulosis Nutritional intake and bowel habits are monitored for ongoing diverticulosis management. 11. Tricuspid Valve Regurgitation Continuous cardiology follow-up is indicated to monitor any progressive changes in aortic valve calcification or regurgitation severity. During our consultation, various management options were reviewed, with particular emphasis on ensuring medication efficiency and tolerance. The patient's notable joint pain related to statin use prompted an exploration of alternative lipid-lowering therapies. The implications of her asthma, atrial fibrillation, and newly identified tricuspid valve regurgitation were discussed, with emphasis laid on regular monitoring through cardiology follow-up. Considering her increased migraine episodes, the patient will continue rizatriptan, which proves effective in mitigating acute attacks, and was advised on additional neurologic consultation if needed. Addressing sleep apnea through potential further pulmonary input was discussed after she expressed interest in refining her current management strategy. Orders: Orders C Reactive Protein Today Z00.00 - Encounter for general adult medical examination without abnormal findings Comprehensive Candor. Panel Fast Today Z00.00 - Encounter for general adult medical examination without abnormal findings Liver Panel Today Z00.00 - Encounter for general adult medical examination without abnormal findings Magnesium Today Z00.00 - Encounter for general adult medical examination without abnormal findings Vitamin B12 and Folate Today Z00.00 - Encounter for general adult medical examination without abnormal findings Vitamin D 25-OH Total Today Z00.00 - Encounter for general adult medical examination without abnormal findings XR DEXA axial skeleton Today M81.0 - Age-related osteoporosis without current pathological fracture Complete Blood Count Auto Diff Today Z00.00 - Encounter for general adult medical examination without abnormal findings Hemoglobin A1c Today Z00.00 - Encounter for general adult medical examination without abnormal findings Lipid Panel Today Z00.00 - Encounter for general adult medical examination without abnormal findings TSH reflex Free T4 Today Z00.00 - Encounter for general adult medical examination without abnormal findings Microalbumin, Random (w Creat) Today E11.9 - Type 2 diabetes mellitus without complications MM screening mammo BI Today Z12.31 - Encounter for screening mammogram for malignant neoplasm of breast Referrals Psychiatry Outpatient Consultation Service F32.A - Depression, unspecified, F41.9 - Anxiety disorder, unspecified Pulmonology Referral J45.909 - Unspecified asthma, uncomplicated, R06.02 - Shortness of breath Medications: New rizatriptan 10 mg PO DAILY PRN 90 tabs 1RF migraine headache Patient Instructions: - Continue using albuterol as prescribed for asthma management. - Remain on metoprolol and Xarelto for atrial fibrillation. - Adhere to levothyroxine regimen for hypothyroid-related management. - Discuss alternative cholesterol-lowering options with transcript evaluator due to statin intolerance. - Maintain use of pantoprazole and adjust lifestyle for GERD symptoms. - Use rizatriptan at onset for migraine treatment. - Follow up with sleep studies and continue CPAP use. - Exercise regularly to help manage restless leg syndrome. - Seek rehabilitation services counselor as necessary due to increased stress. - Complete blood and imaging requirements, if advised. - Call if you have concerns about new symptoms or worsening conditions.
[2024-11-05 11:13] VITALS: BP 132/67; PULSE 55; RESP 12; TEMP 36.2; O2SAT 96; BMI 30.5
== END 2024-11-05 11:55 | disposition home or self-care (01) ==
LOC: HO.HMCSH 10:58
PROVIDERS: PCP Internal Medicine; Visit Provider Physician Assistant Medical
DX: Z76.89 Persons encountering health services in other specified circumstances (principal); J45.909 Unspecified asthma, uncomplicated; I48.0 Paroxysmal atrial fibrillation; E03.9 Hypothyroidism, unspecified; K21.9 Gastro-esophageal reflux disease without esophagitis; G43.109 Migraine with aura, not intractable, without status migrainosus; G47.30 Sleep apnea, unspecified; M19.90 Unspecified osteoarthritis, unspecified site; G25.81 Restless legs syndrome; K57.90 Diverticulosis of intestine, part unspecified, without perforation or abscess without bleeding; I07.1 Rheumatic tricuspid insufficiency; I34.81 Nonrheumatic mitral (valve) annulus calcification; I35.9 Nonrheumatic aortic valve disorder, unspecified; E66.9 Obesity, unspecified

== ENCOUNTER 2024-11-05 10:58 | Outpatient (REF) | payer MEDICARE, SELFPAY ==
[2024-11-05 13:20] LABS: MANUAL DIFF FLAG NO
[2024-11-05 13:23] LABS: Basophils Absolute Auto 0.1 X10*3/uL (0.0-0.2); Eosinophils Absolute Auto 0.1 X10*3/uL (0.0-0.4); Eosinophils Percent Auto 1.8 % (0-4); Hematocrit 43.4 % (37.0-47.0); Hemoglobin 14.3 g/dl (12.0-16.0); Imm Gran Abs Auto 0.03 X10*3/uL (0.00-0.03); Imm Gran Pct Auto 0.4 % (0.0-0.4); Lymphocytes Absolute Auto 2.2 X10*3/uL (1.2-4.9); Lymphocytes Percent Auto 30.5 % (20-40); Mean Corpuscular HGB Conc 32.9 g/dl (31.0-35.0); Mean Corpuscular Hemoglobin 29.6 pg (27.0-33.0); Mean Corpuscular Volume 89.9 fL (80.0-98.0); Monocytes Absolute Auto 0.7 X10*3/uL (0.1-1.2); Monocytes Percent Auto 9.9 % (2-11); Neutrophils Absolute Auto 4.2 x10*3/uL (2.0-8.3); Neutrophils Percent Auto 56.4 % (45-73); Platelet Count 353 X10*3/uL (160-400); Red Blood Count 4.83 X10*6/uL (4.20-5.50); Red Cell Distribution Width 12.5 % (11.0-16.0); White Blood Count 7.4 X10*3/uL (4.8-10.8)
[2024-11-05 13:35] LABS: Estimated Average Glucose 111 mg/dL; Hemoglobin A1c % 5.5 % (<6.0)
[2024-11-05 13:43] LABS: Alanine Aminotransferase 15 U/L (0-31); Albumin Level 4.2 g/dL (3.5-5.0); Alkaline Phosphatase 76 U/L (39-117); Anion Gap 13 (12-20); Aspartate Amino Transferase 19 U/L (5-31); Bilirubin Direct 0.2 mg/dL (0.0-0.5); Bilirubin Total 0.7 mg/dL (0.0-1.0); Blood Urea Nitrogen 17 mg/dL (9-16); C Reactive Protein 0.68 mg/dL (< or = 0.50); Calcium 9.6 mg/dL (8.4-10.2); Carbon Dioxide 26 mmol/L (22-29); Chloride 104 mmol/L (96-108); Cholesterol 227 mg/dL (<200); Estimated Glomerular Filt Rate > 60; Glucose Fasting 99 mg/dL (60-99); HDL Cholesterol 53 mg/dL (>40); LDL Cholesterol Calculated 138 mg/dL (<100); Magnesium 1.9 mg/dL (1.6-2.6); Potassium 4.5 mmol/L (3.3-5.1); Sodium 138 mmol/L (135-145); Total Protein 7.2 g/dL (6.5-8.0); Triglycerides 181 mg/dL (<150)
[2024-11-05 13:58] LABS: TSH reflex Free T4 0.49 uIU/mL (0.32-4.0); Vitamin D 25-OH Total 44.2 ng/mL (>30)
[2024-11-05 14:11] LABS: Folate 9.5 ng/mL (> or = 4.0); Vitamin B12 377 pg/mL (200-900)
[2024-11-05 16:20] LABS: Creatinine Urine 82.57 mg/dL
== END 2024-11-05 10:59 | disposition home or self-care (01) ==
LOC: HO.HMGCLDS 10:58
PROVIDERS: PCP Internal Medicine; Visit Provider Physician Assistant Medical
DX: Z76.89 Persons encountering health services in other specified circumstances (principal); J45.909 Unspecified asthma, uncomplicated; I48.0 Paroxysmal atrial fibrillation; E03.9 Hypothyroidism, unspecified; K21.9 Gastro-esophageal reflux disease without esophagitis; G43.109 Migraine with aura, not intractable, without status migrainosus; G47.30 Sleep apnea, unspecified; M19.90 Unspecified osteoarthritis, unspecified site; G25.81 Restless legs syndrome; K57.90 Diverticulosis of intestine, part unspecified, without perforation or abscess without bleeding; I07.1 Rheumatic tricuspid insufficiency; I34.81 Nonrheumatic mitral (valve) annulus calcification; I35.9 Nonrheumatic aortic valve disorder, unspecified; E66.9 Obesity, unspecified; Z79.01 Long term (current) use of anticoagulants; Z79.899 Other long term (current) drug therapy; Z00.00 Encounter for general adult medical examination without abnormal findings; E11.9 Type 2 diabetes mellitus without complications
CPT/HCPCS: 36415; 80053; 80061; 80076; 82043; 82248; 82306; 82570; 82607; 82746; 83036; 83735; 84443; 85025; 86140; 96127; 99202

== ENCOUNTER 2024-12-10 07:25 | Day surgery (SDC) | payer MEDICARE, SELFPAY ==
[2024-12-08 12:31] VITALS: BMI 30.5
--- NOTE | 2024-12-09 09:39 | HO.ANESPROP2 ---
Documented by User: Nayana Santo NP 12/09/24 09:44 HPI - Anesthesia Eval Consult details Narrative: 74yo F for Upper Endoscopy with Balloon Dilitation, Colonoscopy Follows [facility] for afib. Stable at 06/2024 office visit for 1 year routine f/u Xarelto for afib and s/p ablation No valve disease on 2023 echo [facility] Active Problems Active Problems: All Active Problems Obesity with body mass index (BMI) of 30.0 to 39.9 (Acute) Calcification of aortic valve (Acute) Mitral annular calcification (Acute) Tricuspid valve regurgitation (Acute) Sleep apnea (Acute) Migraine headache with aura (Acute) Asthma (Acute) Depression (Acute) H/O wisdom tooth extraction (Acute) Osteoarthritis (Acute) Diverticulosis (Acute) Environmental allergies (Acute) Restless leg syndrome (Acute) Obstructive sleep apnea (Acute) Cecal polyp (Acute) Menopause (Acute) Hiatal hernia (Acute) GERD (gastroesophageal reflux disease) (Acute) Mild hypercholesterolemia (Acute) Hypothyroidism (Acute) Establishing care with new doctor, encounter for (Acute) Subacromial bursitis of right shoulder joint (Acute) Paroxysmal atrial fibrillation (Acute) SOB (shortness of breath) on exertion (Acute) Past Medical History Medical History Obesity with body mass index (BMI) of 30.0 to 39.9 Calcification of aortic valve Mitral annular calcification Tricuspid valve regurgitation Sleep apnea Migraine headache with aura Asthma Depression History of mammogram (~06/07/23) Osteoarthritis Diverticulosis Environmental allergies Restless leg syndrome Obstructive sleep apnea Cecal polyp Menopause Hiatal hernia GERD (gastroesophageal reflux disease) Mild hypercholesterolemia Hypothyroidism Establishing care with new doctor, encounter for Persistent atrial fibrillation Family History Family History Father CAD (coronary artery disease) Afib Mother Afib Brother Afib Family history of problems with anesthesia: No Surgical History Surgical History History of colonoscopy (~09/27/19) H/O wisdom tooth extraction History of partial colectomy S/P excision of lipoma History of tonsillectomy History of cardiac radiofrequency ablation History of colon resection History of Problems with Anesthesia: No Social History Social History Housing: House Are you a primary rn medicare to a significant other at home: No Do you presently have visiting nurse or other home services: No Alcohol intake: current Alcohol intake frequency: a few times a week Alcohol type: wine Patient Tobacco Use Status: Former Tobacco user Tobacco use type: Cigarette Use of substances other than those prescribed or required for medical reasons: No Have you been hit, kicked, punched, or otherwise hurt by someone within the past year? If so, by whom?: No Are you DNR?: No Advance Directives: No Advance Directives Information Provided: Yes Patient : No service: No Current occupational status: retired Cognitive needs: No Hearing needs: No Vision needs: Yes (reading glasses) Meds Allergies Allergy/AdvReac Type Severity Reaction Status Date / Time amoxicillin (From AUGMENTIN) Allergy Unknown SEVERE Verified 11/05/24 12:56 SHARRON-RECTAL REDNESS,INFLAMMATION aspirin (ASPIRIN) Allergy Unknown FACIAL Verified 11/05/24 12:56 SWELLING clavulanic acid (From Allergy Unknown SEVERE Verified 11/05/24 12:56 AUGMENTIN) SHARRON-RECTAL REDNESS,INFLAMMATION ibuprofen Allergy Unknown anaphylaxis Verified 11/05/24 12:56 Iodinated Contrast Media (IV Allergy Unknown RASH,SOB Verified 11/05/24 12:56 CONTRAST) Hybipqr-NZN-LsJ Reductase Allergy Unknown MUSCLE Verified 11/05/24 12:56 Inhibitor ([id number]-ATP-NGG ACHING REDUCTASE INHIBITOR) Sulfa (Sulfonamide Allergy Unknown RASH,SOB, Verified 11/05/24 12:56 Antibiotics) (SULFA ANGIOEDEMA (SULFONAMIDE ANTIBIOTICS)) animal dander Allergy Unknown Unknown Uncoded 11/05/24 12:56 pollen Allergy Unknown Unknown Uncoded 11/05/24 12:56 shellfish Allergy Unknown breathing Uncoded 11/05/24 12:56 difficulty, rash Home Medications ?Medication ?Instructions ?Recorded ?Confirmed ?Last Taken ?Type albuterol sulfate 90 mcg/actuation 90 mcg inhalation Q4-6H PRN 10/03/21 12/08/24 Unknown History aerosol inhaler Shortness Of Breath Or Wheezing pantoprazole 40 mg tablet,delayed 40 mg PO DAILY PRN 10/03/21 12/08/24 Unknown History release sertraline 50 mg tablet 50 mg PO DAILY 10/03/21 12/08/24 12/21/21 History fluticasone 250 mcg-salmeterol 50 1 puff inhalation BID 12/21/21 12/08/24 12/21/21 History mcg/dose blistr powdr for inhalation ([employer] Inhub) cetirizine 10 mg tablet 10 mg PO DAILY 10/16/22 12/08/24 Unknown History metoprolol succinate 50 mg 50 mg PO BEDTIME 12/08/24 12/08/24 Unknown History tablet,extended release 24 hr rivaroxaban 20 mg tablet (Xarelto) 20 mg PO BEDTIME 12/08/24 12/10/24 12/07/24 History Exam Height,Weight and Vital Signs: Height 5 ft 6.54 in Weight 87.09 kg Pertinent Lab Results Pertinent Lab Results: Laboratory Tests 11/05/24 12:13 WBC 7.4 Hgb 14.3 Hct 43.4 Plt Count 353 Sodium 138 Potassium 4.5 Chloride 104 Carbon Dioxide 26 BUN 17 H Creatinine 0.59 Narrative Narrative: EKG 06/2024 EKG Details: EKG shows normal sinus rhythm with first-degree AV block otherwise normal EKG ECHO 03/2024 Conclusions: - The left ventricular systolic function is normal. The visually estimated ejection fraction is between 65-70%. - No obvious valvular pathology seen on this study. Assessment and Plan Assessment Anesthesia Assessment: Chart Reviewed Final Anesthetic Review Family History of Problems with Anesthesia: No History of Problems with Anesthesia: No Documented by User: Morris Coulter MD 12/10/24 08:10 [facility] Past Medical History Medical History Obesity with body mass index (BMI) of 30.0 to 39.9 Calcification of aortic valve Mitral annular calcification Tricuspid valve regurgitation Sleep apnea Migraine headache with aura Asthma Depression History of mammogram (~06/07/23) Osteoarthritis Diverticulosis Environmental allergies Restless leg syndrome Obstructive sleep apnea Cecal polyp Menopause Hiatal hernia GERD (gastroesophageal reflux disease) Mild hypercholesterolemia Hypothyroidism Establishing care with new doctor, encounter for Persistent atrial fibrillation Cognitive capacity: normal Functional capacity: independent ambulation Patient : No Family History Family History Father CAD (coronary artery disease) Afib Mother Afib Brother Afib Surgical History Surgical History History of colonoscopy (~09/27/19) H/O wisdom tooth extraction History of partial colectomy S/P excision of lipoma History of tonsillectomy History of cardiac radiofrequency ablation History of colon resection Social History Social History Housing: House Are you a primary rn medicare to a significant other at home: No Do you presently have visiting nurse or other home services: No Alcohol intake: current Alcohol intake frequency: a few times a week Alcohol type: wine Patient Tobacco Use Status: Former Tobacco user Tobacco use type: Cigarette Use of substances other than those prescribed or required for medical reasons: No Have you been hit, kicked, punched, or otherwise hurt by someone within the past year? If so, by whom?: No Are you DNR?: No Advance Directives: No Advance Directives Information Provided: Yes Patient : No service: No Current occupational status: retired Cognitive needs: No Hearing needs: No Vision needs: Yes (reading glasses) Meds Allergies Allergy/AdvReac Type Severity Reaction Status Date / Time amoxicillin (From AUGMENTIN) Allergy Unknown SEVERE Verified 11/05/24 12:56 SHARRON-RECTAL REDNESS,INFLAMMATION aspirin (ASPIRIN) Allergy Unknown FACIAL Verified 11/05/24 12:56 SWELLING clavulanic acid (From Allergy Unknown SEVERE Verified 11/05/24 12:56 AUGMENTIN) SHARRON-RECTAL REDNESS,INFLAMMATION ibuprofen Allergy Unknown anaphylaxis Verified 11/05/24 12:56 Iodinated Contrast Media (IV Allergy Unknown RASH,SOB Verified 11/05/24 12:56 CONTRAST) Utiomip-NRV-QvJ Reductase Allergy Unknown MUSCLE Verified 11/05/24 12:56 Inhibitor (MNTQJAM-BYI-OGL ACHING REDUCTASE INHIBITOR) Sulfa (Sulfonamide Allergy Unknown RASH,SOB, Verified 11/05/24 12:56 Antibiotics) (SULFA ANGIOEDEMA (SULFONAMIDE ANTIBIOTICS)) animal dander Allergy Unknown Unknown Uncoded 11/05/24 12:56 pollen Allergy Unknown Unknown Uncoded 11/05/24 12:56 shellfish Allergy Unknown breathing Uncoded 11/05/24 12:56 difficulty, rash Home Medications ?Medication ?Instructions ?Recorded ?Confirmed ?Last Taken ?Type albuterol sulfate 90 mcg/actuation 90 mcg inhalation Q4-6H PRN 10/03/21 12/08/24 Unknown History aerosol inhaler Shortness Of Breath Or Wheezing pantoprazole 40 mg tablet,delayed 40 mg PO DAILY PRN 10/03/21 12/08/24 Unknown History release sertraline 50 mg tablet 50 mg PO DAILY 10/03/21 12/08/24 12/21/21 History fluticasone 250 mcg-salmeterol 50 1 puff inhalation BID 12/21/21 12/08/24 12/21/21 History mcg/dose blistr powdr for inhalation ([employer] Inhub) cetirizine 10 mg tablet 10 mg PO DAILY 10/16/22 12/08/24 Unknown History metoprolol succinate 50 mg 50 mg PO BEDTIME 12/08/24 12/08/24 Unknown History tablet,extended release 24 hr rivaroxaban 20 mg tablet (Xarelto) 20 mg PO BEDTIME 12/08/24 12/10/24 12/07/24 History Exam Exam Date and Time: 12/10/2024 Airway Mallampati Class: II TM Dist: >3cm Neck ROM: Full Loose/Missing/Broken Teeth: No Heart: rrr Lungs: cta Other: normal cognition Assessment and Plan Assessment Anesthesia Assessment: Anesthesia Plan Discussed Final Anesthetic Review NPO: Yes ASA Class: III Final Preanesthetic Review: No Changes in Pt Med Stat, Meds/Allgs Chart Reviewed, Consent Obtained/Reviewed and Anes Risks/Benef Reviewed Patient Risk: Intermediate Procedure Risk: Low Anesthetic Plan Anesthetic Plan: MAC: Disposition: Standard PACU
[2024-12-10 07:45] VITALS: BMI 30.7
[2024-12-10 07:59] VITALS: BP 141/72; PULSE 63; RESP 18; TEMP 36.3; O2SAT 97
[2024-12-10] MEDS: Lactated Ringers 1,000 ML 100 ML IVCONT (08:08)
[2024-12-10 09:31] VITALS: BP 112/56; PULSE 53; RESP 16; TEMP 36.8; O2SAT 96
--- NOTE | 2024-12-10 09:38 | P.BOP_ITS ---
Brief Operative Note Date of Service: 12/10/24 Pre-op diagnosis: Dysphagia, Screening Post-op diagnosis: other (Hiatal hernia, Diverticulosis) Procedure: EGD with Balloon Dilation of EGJ from 19mm to 20mm, Colonoscopy to the anastomosis Surgeon: Chaim John MD Anesthesia: MAC Was an Storage Battery Inspector used for this Procedure?: No Estimated blood loss (mL): 2.0 Pathology: none sent Condition: stable Disposition: PACU
[2024-12-10 09:41] VITALS: BP 108/62; PULSE 54; RESP 16; TEMP 36.6; O2SAT 95
--- NOTE | 2024-12-10 10:02 | OP_ITS ---
DATE OF SERVICE: 12/10/2024 SURGEON: Chaim John MD INDICATIONS: The patient presents for evaluation of gastroesophageal reflux, dysphagia, personal history of colon polyps, and colorectal cancer screening. Full consent was obtained from her for both procedures, including risks of bleeding and perforation. PREOPERATIVE DIAGNOSIS: POSTOPERATIVE DIAGNOSIS: PROCEDURE PERFORMED: ESTIMATED BLOOD LOSS: COMPLICATIONS: ANESTHESIA: Medication used, monitored anesthesia care. ASSISTANTS: SPECIMENS: PREOPERATIVE DIAGNOSES: Gastroesophageal reflux, dysphagia, personal history of colon polyps, and colorectal cancer screening. POSTOPERATIVE DIAGNOSES: Gastroesophageal reflux, dysphagia, personal history of colon polyps, and colorectal cancer screening, hiatal hernia, diverticulosis, and internal hemorrhoids. PROCEDURES PERFORMED: Esophagogastroduodenoscopy with balloon dilation of gastroesophageal junction, and colonoscopy to the anastomosis. DESCRIPTION OF PROCEDURE: The patient was placed in the left lateral decubitus position. The Olympus video gastroscope was passed in the posterior oropharynx and upper esophagus under direct vision. The scope was passed slowly into the distal esophageal junction at 36 cm. With insufflation of air, this opened widely without any evidence of a definitive stricture or ring. There was no esophagitis, no Hooks esophagus. The scope entered the stomach. There was a small hiatal hernia. The scope was advanced to pylorus. The duodenum including the bulb appeared normal without mass or ulceration. The scope was withdrawn back to the stomach. The gastric antrum and body appeared normal with good peristalsis. Scope was retroflexed visualizing the proximal stomach carefully, which appeared normal, without any sign of mass or ulceration. The scope was straightened and withdrawn back to the esophagus. Given her symptomatology, I did use a [employer] incremental balloon to dilate the gastroesophageal junction from 19 mm to 20 mm at the recommended pressure for 30 to 60 seconds each. Post- dilation, there was a small amount of heme noted, but no disruption of the gastroesophageal junction. The scope was withdrawn through the remainder of the esophagus which appeared normal. There were no proximal esophageal rings or other abnormalities. I did not obtain biopsies from the proximal esophagus to rule out eosinophilic esophagitis given the very low suspicion for that and the fact that she has to go back on Xarelto. The scope was withdrawn from the patient. She was turned around for the colonoscopy. The digital rectal exam revealed no abnormalities. The Olympus video pediatric colonoscope was entered into the rectum and advanced easily to the region of the anastomosis. The small bowel mucosa appeared normal. The anastomosis appeared normal. The scope was slowly withdrawn assessing all mucosal surfaces carefully. Preparation was excellent. I did not visualize any sign of polyps, colitis, nor angiodysplasia. There was a moderate amount of sigmoid diverticulosis. In the rectum, scope was retroflexed visualizing internal hemorrhoids, but no other pathology. The rectal mucosa appeared normal. Scope was straightened. Of note, I did not obtain any colon biopsies to rule out microscopic colitis given the low suspicion for that and the fact that her symptoms have improved with the addition of cholestyramine. The scope was withdrawn from the patient. She tolerated both procedures well and was returned to recovery area in stable condition. IMPRESSION: 1. Hiatal hernia 2. Diverticulosis. 3. Internal hemorrhoids. PLAN: The patient will continue her daily pantoprazole for reflux. She will see me on a p.r.n. basis. I did advise her to call if her dysphagia worsens. If she develops worsening dysphagia she may need an esophageal motility studies and/or barium swallow, but I do not think that would be necessary given the clinical history. Given the multiple negative colonoscopies subsequent to her resection of the large colon polyp and the fact that she is now 74 years old, I do not think she needs any further screening colonoscopies. As such, she will see me on a p.r.n. basis. She was advised to resume her Xarelto today. MD DONNA Simpson/CLARITZA / [id number] MTDD
== END 2024-12-10 10:16 | disposition home or self-care (01) ==
PROVIDERS: PCP Internal Medicine; Visit Provider Internal Medicine
PROC: (CPT 43249; principal; 2024-12-10 08:30)
PROC: 0DJD8ZZ Inspection of Lower Intestinal Tract, Via Natural or Artificial Opening Endoscopic (ICD-10-PCS; CPT 45378; 2024-12-10 08:30)
DX: Z12.11 Encounter for screening for malignant neoplasm of colon (principal); Z86.0101 Personal history of adenomatous and serrated colon polyps; K57.30 Diverticulosis of large intestine without perforation or abscess without bleeding; K64.8 Other hemorrhoids; Z90.49 Acquired absence of other specified parts of digestive tract; Z98.0 Intestinal bypass and anastomosis status; R13.10 Dysphagia, unspecified; K21.9 Gastro-esophageal reflux disease without esophagitis; K44.9 Diaphragmatic hernia without obstruction or gangrene; I48.19 Other persistent atrial fibrillation; J45.909 Unspecified asthma, uncomplicated; G47.33 Obstructive sleep apnea (adult) (pediatric); E03.9 Hypothyroidism, unspecified; E66.9 Obesity, unspecified; Z68.30 Body mass index [BMI] 30.0-30.9, adult; F32.A Depression, unspecified; Z79.01 Long term (current) use of anticoagulants; Z79.899 Other long term (current) drug therapy; Z88.1 Allergy status to other antibiotic agents; Z88.2 Allergy status to sulfonamides; Z88.6 Allergy status to analgesic agent; Z91.041 Radiographic dye allergy status; Z98.890 Other specified postprocedural states; Z87.891 Personal history of nicotine dependence
CPT/HCPCS: 43249; G0105; C1726; J2704

== ENCOUNTER 2025-01-18 12:18 | Emergency (ER) | payer MEDICARE, SELFPAY ==
--- NOTE | ~2025-01-18 | XR_ITS ---
CLINICAL HISTORY: cough Chest Radiographs, 2 views Comparison: None available Findings: No cardiomegaly. Normal mediastinal contours. No pneumothorax. Opacity in the lingula along the fissure. Increased reticulation. No pleural effusion. Normal upper abdomen. No acute fracture. Impression: Lingular opacity could be atelectasis or pneumonia. Chronic lung pathology. This document has been electronically signed by: Nidhi Sotelo MD on 01/18/2025 13:23:18
[2025-01-18 12:24] VITALS: BP 164/77; PULSE 65; RESP 18; TEMP 36.3; O2SAT 96; BMI 28.7
--- NOTE | 2025-01-18 12:25 | ED.GENADULT ---
HPI - General Adult General Chief complaint: Upper Respiratory Symptoms Stated complaint: possible pneumonia Time Seen by Provider: 01/18/25 14:53 Source: patient Mode of arrival: ambulatory Limitations: no limitations History of Present Illness HPI narrative: This is a 74 years old female presented to the emergency department with a chief complaint of cough congestion for about 10 days she has a history of asthma she has a history of paroxysmal AFib on apixaban. She was sent here by the urgent care. She reports fever cough. Onset (ago): day(s) () Location: chest Radiation: non-radiation Severity: moderate Pain Consistency: constant Relieving factors: none Exacerbating factors: none Associated symptoms: denies other symptoms Related Data Home Medications ?Medication ?Instructions ?Recorded ?Confirmed albuterol sulfate 90 mcg/actuation 90 mcg inhalation Q4-6H PRN 10/03/21 12/08/24 aerosol inhaler Shortness Of Breath Or Wheezing pantoprazole 40 mg tablet,delayed 40 mg PO DAILY PRN 10/03/21 12/08/24 release fluticasone 250 mcg-salmeterol 50 1 puff inhalation BID 12/21/21 12/10/24 mcg/dose blistr powdr for inhalation (Lisa Jackson) cetirizine 10 mg tablet 10 mg PO DAILY 10/16/22 12/08/24 metoprolol succinate 50 mg 50 mg PO BEDTIME 12/08/24 12/08/24 tablet,extended release 24 hr rivaroxaban 20 mg tablet (Xarelto) 20 mg PO BEDTIME 12/08/24 12/10/24 Previous Rx's ?Medication ?Instructions ?Recorded levothyroxine 175 mcg tablet 175 mcg PO DAILY #90 tabs 09/05/24 rizatriptan 10 mg tablet 10 mg PO DAILY PRN migraine 11/05/24 headache #90 tabs ezetimibe 10 mg tablet (Zetia) 10 mg PO DAILY #90 tabs 11/06/24 sertraline 50 mg tablet 50 mg PO DAILY #90 tabs 01/14/25 doxycycline monohydrate 100 mg 100 mg PO BID 7 days #14 caps 01/18/25 capsule prednisone 20 mg tablet 40 mg (2 x 20 mg) PO DAILY 5 days 01/18/25 #10 tabs Allergies Allergy/AdvReac Type Severity Reaction Status Date / Time amoxicillin (From AUGMENTIN) Allergy Unknown SEVERE Verified 01/18/25 12:26 SHARRON-RECTAL REDNESS,INFLAMMATION aspirin (ASPIRIN) Allergy Unknown FACIAL Verified 01/18/25 12:26 SWELLING clavulanic acid (From Allergy Unknown SEVERE Verified 01/18/25 12:26 AUGMENTIN) SHARRON-RECTAL REDNESS,INFLAMMATION ibuprofen Allergy Unknown anaphylaxis Verified 01/18/25 12:26 Iodinated Contrast Media (IV Allergy Unknown RASH,SOB Verified 01/18/25 12:26 CONTRAST) Sdlreau-HWO-WsE Reductase Allergy Unknown MUSCLE Verified 01/18/25 12:26 Inhibitor ([id number] ACHING REDUCTASE INHIBITOR) Sulfa (Sulfonamide Allergy Unknown RASH,SOB, Verified 01/18/25 12:26 Antibiotics) (SULFA ANGIOEDEMA (SULFONAMIDE ANTIBIOTICS)) animal dander Allergy Unknown Unknown Uncoded 11/05/24 12:56 pollen Allergy Unknown Unknown Uncoded 11/05/24 12:56 shellfish Allergy Unknown breathing Uncoded 11/05/24 12:56 difficulty, rash Review of Systems Constitutional: Constitutional: Reports no additional constitutional complaints Cardiovascular: Cardiovascular: Reports no additional cardiovascular complaints Respiratory: Respiratory: Reports chest congestion and Reports cough PMFSH Past Medical History Attestation statement: The following information was validated with the patient. Medical History Obesity with body mass index (BMI) of 30.0 to 39.9 Calcification of aortic valve Mitral annular calcification Tricuspid valve regurgitation Sleep apnea Migraine headache with aura Asthma Depression History of mammogram (~06/07/23) Osteoarthritis Diverticulosis Environmental allergies Restless leg syndrome Obstructive sleep apnea Cecal polyp Menopause Hiatal hernia GERD (gastroesophageal reflux disease) Mild hypercholesterolemia Hypothyroidism Establishing care with new doctor, encounter for Persistent atrial fibrillation Surgical History History of colonoscopy (~09/27/19) H/O wisdom tooth extraction History of partial colectomy S/P excision of lipoma History of tonsillectomy History of cardiac radiofrequency ablation History of colon resection Family History Family History Father CAD (coronary artery disease) Afib Mother Afib Brother Afib Social History Social History Housing: House Are you a primary home health care respiratory therapist to a significant other at home: No Do you presently have visiting nurse or other home services: No Unable to assess alcohol history related to: Unknown Alcohol intake: current Alcohol intake frequency: a few times a week Alcohol type: wine Patient Tobacco Use Status: Former Tobacco user Tobacco use type: Cigarette Advance Directives: No Advance Directives Information Provided: No Do you have a plan to hurt others: No Plan service: No Current occupational status: retired Cognitive needs: No Hearing needs: No Vision needs: Yes (reading glasses) Physical Exam ED Exam Exam: Not acute distress she looks well she is satting 95% on room air respirations 17 Vital Signs: Vital Signs - 24 hr 01/18/25 12:24 01/18/25 14:15 01/18/25 15:11 Temperature 97.3 F 98.3 F Pulse Rate 65 54 Respiratory Rate 18 17 Blood Pressure 164/77 H 167/84 H Pulse Oximetry 96 95 Oxygen Delivery Method Room Air Room Air Room Air 01/18/25 15:24 Temperature Pulse Rate 56 Respiratory Rate 16 Blood Pressure Pulse Oximetry Oxygen Delivery Method BMI result Body Mass Index 28.7 Const General: cooperative, comfortable and no acute distress Orientation/consciousness: patient oriented x3 Limitations: no limitations HENMT Head: Yes normal to inspection General nose exam: Normal external nose present Face and sinus: Yes normal facial exam Neck Neck: Yes normal visual inspection Chest Chest palpation & inspection: normal inspection of the chest Resp Other: On examination patient has minimal wheezing bilaterally Auscultation: wheezes Cardio Jugular venous distension: no JVD Rate: regular rate Rhythm: regular rhythm GI Inspection: Yes normal to inspection Palpation (GI): Soft to palpation, not firm and nontender Skin General skin exam: no rashes or lesions noted Lesions: no lesions Rashes: no rashes Neuro General: patient oriented x3 Extrem General: Yes normal to inspection Course Course Course Narrative: RME, this is a rapid medical exam performed by Jose Bourgeois please refer to primary provider for complete H&P- 74 year old female presents for evaluation of cough, congestion and shortness of breath for 10 days. Plan for basic labs, chest x-ray, viral swabs. Reevaluation(s) Reevaluation #1: Re-examination after albuterol much better lungs clear she is feeling better chest x-ray showed left lingula infiltrate, she is oxygenating well we will discharge her home on antibiotic she is comfortable with the Time: 15:49 Medications Administered Discontinued Medications Generic Name Dose Route Start Last Admin Trade Name Eros PRN Reason Stop Dose Admin Albuterol Sulfate 2.5 mg/ 0 mg 01/18/25 15:21 01/18/25 15:23 Albuterol/Ipratropium 3 ml INHALE 01/18/25 15:22 1 dose ONCE ONE Administration Medical Decision Making Medical Decision Making [facility] Narrative: Patient is here with a chief complaint of cough congestion we will obtain chest x-ray labs 15:50 chest x-ray showed a left lingular infiltrate, she is oxygenating well 95%, respiration rate 16 lungs are now clear after the nebulizer she is comfortable to go home, we will discharge home on doxycycline and p.o. prednisone she will follow-up with the PCP Differential Diagnosis Differential Diagnoses: The differential diagnosis associated with the presentation includes Pneumonia/asthma attack/bronchitis Admission/Observation Consideration of admission/observation: Escalation of care including admission/observation considered Lab Data [facility] Lab Attestation statement: I reviewed the patient's lab results. 01/18/25 12:44 01/18/25 12:44 Labs: Lab Results 01/18/25 01/18/25 Range/Units 12:44 13:25 WBC 9.1 (4.8-10.8) X10*3/uL RBC 4.76 (4.20-5.50) X10*6/uL Hgb 14.1 (12.0-16.0) g/dl Hct 41.4 (37.0-47.0) % MCV 87.0 (80.0-98.0) fL MCH 29.6 (27.0-33.0) pg MCHC 34.1 (31.0-35.0) g/dl RDW 12.9 (11.0-16.0) % Plt Count 274 (160-400) X10*3/uL MPV 10.4 (9.4-12.3) fL Immature Gran % (Auto) 0.4 (0.0-0.4) % Neut % (Auto) 79.2 H (45-73) % Lymph % (Auto) 13.9 L (20-40) % [place] % (Auto) 6.1 (2-11) % Eos % (Auto) 0.2 (0-4) % Baso % (Auto) 0.2 (0-2) % Lymph # (Auto) 1.3 (1.2-4.9) X10*3/uL [place] # (Auto) 0.6 (0.1-1.2) X10*3/uL Eos # (Auto) 0.0 (0.0-0.4) X10*3/uL Baso # (Auto) 0.0 (0.0-0.2) X10*3/uL Abs Immat Gran (auto) 0.04 H (0.00-0.03) X10*3/uL Absolute Neuts (auto) 7.2 (2.0-8.3) x10*3/uL Absolute Nucleated RBC 0.000 (0.0-0.012) X10*3/uL Nucleated RBC % (auto) 0.0 (0.0-0.2) /100WBC Sodium 140 (135-145) mmol/L Potassium 4.1 (3.3-5.1) mmol/L Chloride 104 (96-108) mmol/L Carbon Dioxide 24 (22-29) mmol/L Anion Gap 16 (12-20) BUN 12 (9-16) mg/dL Creatinine 0.62 (0.5-1.4) mg/dL Estim Creat Clear Calc 85.6 Estimated GFR > 60 Random Glucose 112 (60-115) mg/dL Calcium 9.2 (8.4-10.2) mg/dL Total Bilirubin 0.7 (0.0-1.0) mg/dL AST 32 H (5-31) U/L ALT 32 H (0-31) U/L Alkaline Phosphatase 68 (39-117) U/L B-Natriuretic Peptide 50 (<100) pg/mL Total Protein 7.1 (6.5-8.0) g/dL Albumin 4.2 (3.5-5.0) g/dL COVID-19 (RAUL) Cancelled COVID-19 Clin Com Cancelled Influenza Type A (PCR) NEGATIVE (Negative) Influenza Type B (PCR) NEGATIVE (Negative) RSV RNA Qual (PCR) NEGATIVE (Negative) SARS-CoV-2 RNA (RT-PCR) NEGATIVE (Negative) S. pyogenes GrpA EDSON Negative (Negative) Independent Interpretation I performed an independent interpretation of an: Plain X-Ray Interpretation: Lingular infiltrate Radiology Impression Discussion of test interpretation with radiology: I have reviewed the radiologist's reading. Radiologist Impression: CLINICAL HISTORY: cough Chest Radiographs, 2 views Comparison: None available Findings: No cardiomegaly. Normal mediastinal contours. No pneumothorax. Opacity in the lingula along the fissure. Increased reticulation. No pleural effusion. Normal upper abdomen. No acute fracture. Impression: Lingular opacity could be atelectasis or pneumonia. Chronic lung pathology. This document has been electronically signed by: Nidhi Sotelo MD on 01/18/2025 13:23:18 Dictated By: Nidhi Bonds MD Signed By: <Electronically signed by Nidhi Bonds MD in OV> 01/18/25 1324 Prescription Management I considered prescription management with: Antibiotic Chronic Conditions Patient?s care impacted by: Other asthma Discharge Plan Discharge Clinical Impression: Wheezing Pneumonia Qualifiers: Pneumonia type: due to unspecified organism Laterality: left Lung location: unspecified part of lung Qualified Code(s): J18.9 - Pneumonia, unspecified organism Patient Disposition: Home, Self-Care Instructions: Community Acquired Pneumonia (DC) Additional Instructions: Follow-up with your primary care physician and take doxycycline as directed return if worse Prescriptions: New doxycycline monohydrate 100 mg capsule 100 mg PO BID 7 Days Qty: 14 0RF prednisone 20 mg tablet 40 mg PO DAILY 5 Days Qty: 10 0RF No Action levothyroxine 175 mcg tablet 175 mcg PO DAILY Qty: 90 1RF ezetimibe [Zetia] 10 mg tablet 10 mg PO DAILY Qty: 90 1RF sertraline 50 mg tablet 50 mg PO DAILY Qty: 90 3RF fluticasone propion-salmeterol [Wixela Inhub] 250-50 mcg/dose blister with device 1 puff inhalation BID metoprolol succinate 50 mg tablet extended release 24 hr 50 mg PO BEDTIME Xarelto 20 mg tablet 20 mg PO BEDTIME albuterol sulfate 90 mcg/actuation HFA aerosol inhaler 90 mcg inhalation Q4-6H PRN (Reason: Shortness Of Breath Or Wheezing) pantoprazole 40 mg tablet,delayed release (DR/EC) 40 mg PO DAILY MDD GERD cetirizine 10 mg tablet 10 mg PO DAILY rizatriptan 10 mg tablet 10 mg PO DAILY PRN (Reason: migraine headache) Qty: 90 1RF Referrals: Nan Chaney PA-C [Primary Care Provider, Internal Medicine] - 01/27/25 Referral Note: lingular pneumonia Print Language: Macedonian
[2025-01-18 13:11] LABS: MANUAL DIFF FLAG NO
[2025-01-18 13:14] LABS: Hematocrit 41.4 % (37.0-47.0); Hemoglobin 14.1 g/dl (12.0-16.0); Imm Gran Abs Auto 0.04 X10*3/uL (0.00-0.03); Imm Gran Pct Auto 0.4 % (0.0-0.4); Lymphocytes Absolute Auto 1.3 X10*3/uL (1.2-4.9); Mean Corpuscular HGB Conc 34.1 g/dl (31.0-35.0); Mean Corpuscular Hemoglobin 29.6 pg (27.0-33.0); Mean Corpuscular Volume 87.0 fL (80.0-98.0); NRBC Abs Auto 0.000 X10*3/uL (0.0-0.012); NRBC Pct Auto 0.0 /100WBC (0.0-0.2); Platelet Count 274 X10*3/uL (160-400); Red Blood Count 4.76 X10*6/uL (4.20-5.50); White Blood Count 9.1 X10*3/uL (4.8-10.8)
[2025-01-18 13:32] LABS: Alanine Aminotransferase 32 U/L (0-31); Albumin Level 4.2 g/dL (3.5-5.0); Alkaline Phosphatase 68 U/L (39-117); Anion Gap 16 (12-20); Aspartate Amino Transferase 32 U/L (5-31); Blood Urea Nitrogen 12 mg/dL (9-16); Calcium 9.2 mg/dL (8.4-10.2); Carbon Dioxide 24 mmol/L (22-29); Chloride 104 mmol/L (96-108); Creatinine Clr Calc Pharmacy 85.6; Estimated Glomerular Filt Rate > 60; Potassium 4.1 mmol/L (3.3-5.1); Sodium 140 mmol/L (135-145); Total Protein 7.1 g/dL (6.5-8.0)
[2025-01-18 13:34] LABS: B Type Natriuretic Peptide 50 pg/mL (<100)
[2025-01-18 14:03] LABS: IDNOW Serial# 55D5AD1C; Strep A Nucleic Acid Negative (Negative)
[2025-01-18 14:13] LABS: Resp Syncy Virus RNA Qual PCR NEGATIVE (Negative); SARS COV2 PCR INHOUSE NEGATIVE (Negative)
[2025-01-18 14:15] VITALS: BP 167/84; PULSE 54; RESP 17; TEMP 36.8; O2SAT 95
--- NOTE | 2025-01-18 15:03 | ED.URI ---
HPI - URI/Sore Throat General Chief Complaint: Upper Respiratory Symptoms Stated Complaint: possible pneumonia Time Seen by Provider: 01/18/25 14:53 Source: patient Mode of arrival: ambulatory Limitations: no limitations History of Present Illness HPI Narrative: This is 74 years old the patient referred to us by the urgent care because cough congestion concern for pneumonia. Patient states she has been having upper respiratory symptoms for about 10 days. Denies any fever or chills vomiting she has a history of asthma she has a history of paroxysmal AFib on apixaban elicited complaint: cough Pertinent past history: asthma Onset (ago): day(s) () Related Data Home Medications ?Medication ?Instructions ?Recorded ?Confirmed albuterol sulfate 90 mcg/actuation 90 mcg inhalation Q4-6H PRN 10/03/21 12/08/24 aerosol inhaler Shortness Of Breath Or Wheezing pantoprazole 40 mg tablet,delayed 40 mg PO DAILY PRN 10/03/21 12/08/24 release fluticasone 250 mcg-salmeterol 50 1 puff inhalation BID 12/21/21 12/10/24 mcg/dose blistr powdr for inhalation (Wixela Inhub) cetirizine 10 mg tablet 10 mg PO DAILY 10/16/22 12/08/24 metoprolol succinate 50 mg 50 mg PO BEDTIME 12/08/24 12/08/24 tablet,extended release 24 hr rivaroxaban 20 mg tablet (Xarelto) 20 mg PO BEDTIME 12/08/24 12/10/24 Previous Rx's ?Medication ?Instructions ?Recorded levothyroxine 175 mcg tablet 175 mcg PO DAILY #90 tabs 09/05/24 rizatriptan 10 mg tablet 10 mg PO DAILY PRN migraine 11/05/24 headache #90 tabs ezetimibe 10 mg tablet (Zetia) 10 mg PO DAILY #90 tabs 11/06/24 sertraline 50 mg tablet 50 mg PO DAILY #90 tabs 01/14/25 Allergies Allergy/AdvReac Type Severity Reaction Status Date / Time amoxicillin (From AUGMENTIN) Allergy Unknown SEVERE Verified 01/18/25 12:26 SHARRON-RECTAL REDNESS,INFLAMMATION aspirin (ASPIRIN) Allergy Unknown FACIAL Verified 01/18/25 12:26 SWELLING clavulanic acid (From Allergy Unknown SEVERE Verified 01/18/25 12:26 AUGMENTIN) SHARRON-RECTAL REDNESS,INFLAMMATION ibuprofen Allergy Unknown anaphylaxis Verified 01/18/25 12:26 Iodinated Contrast Media (IV Allergy Unknown RASH,SOB Verified 01/18/25 12:26 CONTRAST) Mqmrbxx-POA-KmX Reductase Allergy Unknown MUSCLE Verified 01/18/25 12:26 Inhibitor ([id number] ACHING REDUCTASE INHIBITOR) Sulfa (Sulfonamide Allergy Unknown RASH,SOB, Verified 01/18/25 12:26 Antibiotics) (SULFA ANGIOEDEMA (SULFONAMIDE ANTIBIOTICS)) animal dander Allergy Unknown Unknown Uncoded 11/05/24 12:56 pollen Allergy Unknown Unknown Uncoded 11/05/24 12:56 shellfish Allergy Unknown breathing Uncoded 11/05/24 12:56 difficulty, rash PMFSH Past Medical History Medical History Obesity with body mass index (BMI) of 30.0 to 39.9 Calcification of aortic valve Mitral annular calcification Tricuspid valve regurgitation Sleep apnea Migraine headache with aura Asthma Depression History of mammogram (~06/07/23) Osteoarthritis Diverticulosis Environmental allergies Restless leg syndrome Obstructive sleep apnea Cecal polyp Menopause Hiatal hernia GERD (gastroesophageal reflux disease) Mild hypercholesterolemia Hypothyroidism Establishing care with new doctor, encounter for Persistent atrial fibrillation Surgical History History of colonoscopy (~09/27/19) H/O wisdom tooth extraction History of partial colectomy S/P excision of lipoma History of tonsillectomy History of cardiac radiofrequency ablation History of colon resection Family History Family History Father CAD (coronary artery disease) Afib Mother Afib Brother Afib Social History Social History Housing: House Are you a primary care management associate to a significant other at home: No Do you presently have visiting nurse or other home services: No Alcohol intake: current Alcohol intake frequency: a few times a week Alcohol type: wine Patient Tobacco Use Status: Former Tobacco user Tobacco use type: Cigarette Advance Directives: No Advance Directives Information Provided: No Do you have a plan to hurt others: No Plan service: No Current occupational status: retired Cognitive needs: No Hearing needs: No Vision needs: Yes (reading glasses) Physical Exam Vital Signs: Vital Signs: Last Vital Signs Temp 98.3 F 01/18/25 14:15 Pulse 54 01/18/25 14:15 Resp 17 01/18/25 14:15 BP 167/84 H 01/18/25 14:15 Pulse Ox 95 01/18/25 14:15 O2 Del Method Room Air 01/18/25 14:15 BMI result Body Mass Index 28.7 Medical Decision Making Lab Data 01/18/25 12:44 01/18/25 12:44 Labs: Lab Results 01/18/25 01/18/25 Range/Units 12:44 13:25 WBC 9.1 (4.8-10.8) X10*3/uL RBC 4.76 (4.20-5.50) X10*6/uL Hgb 14.1 (12.0-16.0) g/dl Hct 41.4 (37.0-47.0) % MCV 87.0 (80.0-98.0) fL MCH 29.6 (27.0-33.0) pg MCHC 34.1 (31.0-35.0) g/dl RDW 12.9 (11.0-16.0) % Plt Count 274 (160-400) X10*3/uL MPV 10.4 (9.4-12.3) fL Immature Gran % (Auto) 0.4 (0.0-0.4) % Neut % (Auto) 79.2 H (45-73) % Lymph % (Auto) 13.9 L (20-40) % [place] % (Auto) 6.1 (2-11) % Eos % (Auto) 0.2 (0-4) % Baso % (Auto) 0.2 (0-2) % Lymph # (Auto) 1.3 (1.2-4.9) X10*3/uL [place] # (Auto) 0.6 (0.1-1.2) X10*3/uL Eos # (Auto) 0.0 (0.0-0.4) X10*3/uL Baso # (Auto) 0.0 (0.0-0.2) X10*3/uL Abs Immat Gran (auto) 0.04 H (0.00-0.03) X10*3/uL Absolute Neuts (auto) 7.2 (2.0-8.3) x10*3/uL Absolute Nucleated RBC 0.000 (0.0-0.012) X10*3/uL Nucleated RBC % (auto) 0.0 (0.0-0.2) /100WBC Sodium 140 (135-145) mmol/L Potassium 4.1 (3.3-5.1) mmol/L Chloride 104 (96-108) mmol/L Carbon Dioxide 24 (22-29) mmol/L Anion Gap 16 (12-20) BUN 12 (9-16) mg/dL Creatinine 0.62 (0.5-1.4) mg/dL Estim Creat Clear Calc 85.6 Estimated GFR > 60 Random Glucose 112 (60-115) mg/dL Calcium 9.2 (8.4-10.2) mg/dL Total Bilirubin 0.7 (0.0-1.0) mg/dL AST 32 H (5-31) U/L ALT 32 H (0-31) U/L Alkaline Phosphatase 68 (39-117) U/L B-Natriuretic Peptide 50 (<100) pg/mL Total Protein 7.1 (6.5-8.0) g/dL Albumin 4.2 (3.5-5.0) g/dL COVID-19 (RAUL) Cancelled COVID-19 Clin Com Cancelled Influenza Type A (PCR) NEGATIVE (Negative) Influenza Type B (PCR) NEGATIVE (Negative) RSV RNA Qual (PCR) NEGATIVE (Negative) SARS-CoV-2 RNA (RT-PCR) NEGATIVE (Negative) S. pyogenes GrpA EDSON Negative (Negative) Discharge Plan Discharge Prescriptions: No Action levothyroxine 175 mcg tablet 175 mcg PO DAILY Qty: 90 1RF ezetimibe [Zetia] 10 mg tablet 10 mg PO DAILY Qty: 90 1RF sertraline 50 mg tablet 50 mg PO DAILY Qty: 90 3RF fluticasone propion-salmeterol [Wixela Inhub] 250-50 mcg/dose blister with device 1 puff inhalation BID metoprolol succinate 50 mg tablet extended release 24 hr 50 mg PO BEDTIME Xarelto 20 mg tablet 20 mg PO BEDTIME albuterol sulfate 90 mcg/actuation HFA aerosol inhaler 90 mcg inhalation Q4-6H PRN (Reason: Shortness Of Breath Or Wheezing) pantoprazole 40 mg tablet,delayed release (DR/EC) 40 mg PO DAILY MDD GERD cetirizine 10 mg tablet 10 mg PO DAILY rizatriptan 10 mg tablet 10 mg PO DAILY PRN (Reason: migraine headache) Qty: 90 1RF Print Language: Croatian
[2025-01-18] MEDS: Albuterol Sulfate 2.5 MG, Albuterol/Iprat 2.5/0.5MG 3 ML 3 ML INHALE (15:23)
[2025-01-18 15:24] VITALS: PULSE 56; RESP 16; O2SAT 96
[2025-01-18 16:00] VITALS: BP 134/81; PULSE 66; RESP 18; TEMP 36.6; O2SAT 95
== END 2025-01-18 16:12 | disposition home or self-care (01) ==
PROVIDERS: Physician Assistant; Emergency Provider Emergency Medicine; PCP Physician Assistant Medical
DX: J18.9 Pneumonia, unspecified organism (principal); R05.9 Cough, unspecified; R09.81 Nasal congestion; I48.0 Paroxysmal atrial fibrillation; Z79.01 Long term (current) use of anticoagulants
CPT/HCPCS: 36415; 71046; 80053; 83880; 85025; 87637; 87651; 94640; 99284; 99285

== ENCOUNTER → 2025-01-18 12:25 | Outpatient (BNV) | payer MEDICARE, SELFPAY | PROVIDERS: PCP Physician Assistant Medical; Visit Provider Radiology Diagnostic Radiology | DX: R05.9 Cough, unspecified (principal) | CPT/HCPCS: 71046 ==

== ENCOUNTER 2025-02-02 09:01 | Outpatient (REF) | payer MEDICARE, SELFPAY ==
--- NOTE | ~2025-02-02 | XR_ITS ---
EXAMINATION: XR CHEST CLINICAL INFORMATION: J39.9 - Disease of upper respiratory tract, unspecified COMPARISON: January 18, 2025 TECHNIQUE: 2 views of the chest were obtained. FINDINGS: Pulmonary reticular pattern. Hyperinflated lungs. No consolidation, pleural effusion or pneumothorax. Cardiomediastinal silhouette size is normal. Calcified plaque thoracic aorta. Multilevel spondylosis, thoracolumbar spine. XR/XR chest 2V IMPRESSION: Chronic interstitial lung disease without overt acute airspace disease. Overall improved. Electronically signed by: Musa Austin MD 02/02/2025 12:07 PM EDT
[2025-02-02 14:17] LABS: Hematocrit 43.9 % (37.0-47.0); Hemoglobin 14.4 g/dl (12.0-16.0); Mean Corpuscular HGB Conc 32.8 g/dl (31.0-35.0); Mean Corpuscular Hemoglobin 29.4 pg (27.0-33.0); Mean Corpuscular Volume 89.6 fL (80.0-98.0); NRBC Abs Auto 0.000 X10*3/uL (0.0-0.012); NRBC Pct Auto 0.0 /100WBC (0.0-0.2); Platelet Count 305 X10*3/uL (160-400); Red Blood Count 4.90 X10*6/uL (4.20-5.50); White Blood Count 10.3 X10*3/uL (4.8-10.8)
[2025-02-02 14:46] LABS: Alanine Aminotransferase 11 U/L (0-31); Albumin Level 3.8 g/dL (3.5-5.0); Alkaline Phosphatase 77 U/L (39-117); Anion Gap 13 (12-20); Aspartate Amino Transferase 17 U/L (5-31); Blood Urea Nitrogen 8 mg/dL (9-16); Calcium 9.1 mg/dL (8.4-10.2); Carbon Dioxide 26 mmol/L (22-29); Chloride 106 mmol/L (96-108); Estimated Glomerular Filt Rate > 60; Magnesium 1.8 mg/dL (1.6-2.6); Potassium 4.4 mmol/L (3.3-5.1); Sodium 141 mmol/L (135-145); Total Protein 6.7 g/dL (6.5-8.0)
== END 2025-02-02 09:02 | disposition home or self-care (01) ==
LOC: HO.HMGCX 09:01
PROVIDERS: PCP Physician Assistant Medical; Visit Provider Physician Assistant Medical
DX: Z09 Encounter for follow-up examination after completed treatment for conditions other than malignant neoplasm (principal); Z00.00 Encounter for general adult medical examination without abnormal findings; J39.9 Disease of upper respiratory tract, unspecified; J18.9 Pneumonia, unspecified organism; K21.9 Gastro-esophageal reflux disease without esophagitis; Z79.890 Hormone replacement therapy; Z79.899 Other long term (current) drug therapy
CPT/HCPCS: 36415; 71046; 80053; 83735; 85027; 86140; 96127; 99212

== ENCOUNTER 2025-02-02 09:01 | Outpatient (AMB) | payer MEDICARE, SELFPAY ==
--- NOTE | 2025-02-02 08:56 | MHC.PC.OV ---
Vital Signs 02/02/25 08:57 Height 5 ft 6.54 in Weight 188 lb BMI 29.9 BP 164/69 H Respiration 16 Pulse 58 Pulse Source Pulse Oximeter Temp 97.8 F Temp Source Temporal Artery Scan Pulse Oximetry (%) 96 Oxygen Delivery Method Room Air Intake Visit Reasons: ER follow up [employer] Required: No Accompanied by: Self / Same As Patient Allergies amoxicillin (From AUGMENTIN) Allergy (Unknown, Verified 02/02/25 09:51) SEVERE SHARRON-RECTAL REDNESS,INFLAMMATION aspirin (ASPIRIN) Allergy (Unknown, Verified 02/02/25 09:51) FACIAL SWELLING clavulanic acid (From AUGMENTIN) Allergy (Unknown, Verified 02/02/25 09:51) SEVERE SHARRON-RECTAL REDNESS,INFLAMMATION ibuprofen Allergy (Unknown, Verified 02/02/25 09:51) anaphylaxis Iodinated Contrast Media (IV CONTRAST) Allergy (Unknown, Verified 02/02/25 09:51) RASH,SOB Kmwylbq-LRA-WjR Reductase Inhibitor (ONTKQGZ-RID-OAM REDUCTASE INHIBITOR) Allergy (Unknown, Verified 02/02/25 09:51) MUSCLE ACHING Sulfa (Sulfonamide Antibiotics) (SULFA (SULFONAMIDE ANTIBIOTICS)) Allergy (Unknown, Verified 02/02/25 09:51) RASH,SOB, ANGIOEDEMA animal dander Allergy (Unknown, Uncoded 02/02/25 09:51) Unknown pollen Allergy (Unknown, Uncoded 02/02/25 09:51) Unknown shellfish Allergy (Unknown, Uncoded 02/02/25 09:51) breathing difficulty, rash Medication List - Last Reconciled 02/02/25 by Nan Chaney PA-C albuterol sulfate 90 mcg/actuation 90 mcg inhalation Q4-6H PRN cetirizine 10 mg PO DAILY ezetimibe (Zetia) 10 mg PO DAILY fluticasone propion-salmeterol 250-50 mcg/dose (Wixela Inhub) 1 ea inhalation BID levothyroxine 175 mcg PO DAILY metoprolol succinate ER 50 mg PO BEDTIME pantoprazole 40 mg PO DAILY MDD GERD rivaroxaban (Xarelto) 20 mg PO BEDTIME rizatriptan 10 mg PO DAILY PRN sertraline 50 mg PO DAILY Tobacco use date assessed: 02/02/25 Dental Screening Dental Screen Date: 11/05/24 HPI ER follow up HPI Details The patient is a 74-year-old female presenting with an emergency room discharge follow-up after being diagnosed with pneumonia. The patient reported feeling unwell prior to attending a wedding in [place], where she experienced severe fatigue and inability to move on the morning of the event. Despite feeling unwell, she assisted a friend with a cataract procedure before returning home, where her condition worsened, prompting a visit to urgent care and subsequent referral to the emergency room due to suspected pneumonia. In the emergency room, she was diagnosed with pneumonia, with an oxygen saturation of 95%. Her complete blood count was normal, and liver enzymes were mildly elevated, but not concerning. Tests for COVID-19, influenza, RSV, and strep were negative, and she was discharged with doxycycline and prednisone. The patient has a history of allergic reactions to amoxicillin, characterized by severe perirectal redness and inflammation, and is also allergic to sulfa drugs. She completed a seven-day course of antibiotics but continues to experience fatigue, lack of appetite, and chronic diarrhea, which worsens with food intake. She denies any abdominal pain, vomiting, or urinary symptoms, but reports persistent shortness of breath and dry cough. Social History - The patient traveled to [place] for a wedding but did not attend due to illness. - Assisted a friend with a cataract procedure despite feeling unwell. [facility] Medical History (Updated 02/02/25 @ 10:00 by Nan Chaney PA-C) Chronic diarrhea Encounter for follow-up examination after completed treatment for conditions other than malignant neoplasm Upper respiratory disease Obesity with body mass index (BMI) of 30.0 to 39.9 Calcification of aortic valve Mitral annular calcification Tricuspid valve regurgitation Sleep apnea Migraine headache with aura Asthma Depression History of mammogram (~06/07/23) Osteoarthritis Diverticulosis Environmental allergies Restless leg syndrome Obstructive sleep apnea Cecal polyp Menopause Hiatal hernia GERD (gastroesophageal reflux disease) Mild hypercholesterolemia Hypothyroidism Establishing care with new doctor, encounter for Persistent atrial fibrillation Surgical History History of colonoscopy (~09/27/19) H/O wisdom tooth extraction History of partial colectomy S/P excision of lipoma History of tonsillectomy History of cardiac radiofrequency ablation History of colon resection Family History Father CAD (coronary artery disease) Afib Mother Afib Brother Afib Social History Housing: House Are you a primary gericare aide to a significant other at home: No Do you presently have visiting nurse or other home services: No Unable to assess alcohol history related to: Unknown Alcohol intake: current Alcohol intake frequency: a few times a week Alcohol type: wine Patient Tobacco Use Status: Former Tobacco user Tobacco use type: Cigarette service: No Current occupational status: retired Cognitive needs: No Hearing needs: No Vision needs: Yes (reading glasses) Questionnaire PHQ-9 Over the last 2 weeks, how often have you been bothered by any of the following problems? 1. Little interest or pleasure in doing things: more than half the days 2. Feeling down, depressed, or hopeless: nearly every day 3. Trouble falling or staying asleep, or sleeping too much: nearly every day 4. Feeling tired or having little energy: nearly every day 5. Poor appetite or overeating: not at all 6. Feeling bad about yourself - or that you are a failure or have let yourself or your family down: several days 7. Trouble concentrating on things, such as reading the newspaper or watching television: not at all 8. Moving or speaking so slowly that other people could have noticed. Or the opposite - being so fidgety or restless that you have been moving around a lot more than usual: not at all 9. Thoughts that you would be better off or of hurting yourself in some way: not at all Total score: 12 Depression Screening Interpretation: Positive Depression Screening Follow-up: Existing condition, In treatment and Other (referral placed for psychiatrist) Depression Screening Done: Yes 58298 - PHQ-9 Billing: Yes Source: Developed by Drs. Chaim Carl, Lo Desir, Ok Girard and colleagues, with an educational latonia from [employer]. Thrive Questionnaire Date Thrive assessed: 11/05/24 I am a: Patient What is your living situation today?: I have a steady place to live Within the past 12 months, did the food you bought not last and you didn't have the money to get more?: Never true Within the past 12 months, did you worry whether your food would run out before you got money to buy more?: Never true Do you have trouble paying for medicines?: No Do you have trouble getting transportation to medical appointments?: No Do you have trouble paying your heating and electricity bill?: No Do you have trouble taking care of your child, family member or friend?: No Do you have trouble with day-to-day activities such as bathing, preparing meals, shopping, managing finances, etc.?: No Are you currently unemployed and looking for a job?: No Are you interested in more education?: No Please select the resources that you would like help with: None THRIVE Score: 0 AUDIT C Alcohol Use Questionnaire (AUDIT-C) 1. How often do you have a drink containing alcohol?: 2-3 times a week 2. How many drinks containing alcohol do you have on a typical day when you are drinking?: 1 or 2 3. How often do you have six or more drinks on one occasion?: Never Total Score: 3 Score Reviewed/Action Taken: No LINNEA-7 AMB Questionnaire LINNEA-7 Date LINNEA - 7 assessed: 11/05/24 Feeling nervous, anxious, or on edge: 3 = Nearly every day Not being able to stop or control worryin = Several days Worrying too much about different things: 1 = Several days Trouble relaxin = Not at all Being so restless that it is hard to sit still: 0 = Not at all Becoming easily annoyed or irritable: 1 = Several days Feeling afraid as if something awful might happen: 1 = Several days Total LINNEA-7 score (0-4 normal; 5-9 mild; 10-14 moderate; 15-21 severe): 7 Source: Developed by Drs. Chaim Carl, Lo Desir, Ok Girard and colleagues, with an educational latonia from [employer]. LINNEA-7 Assessment Billing LINNEA-7 Assessment Tool: LINNEA-7 Assessment 35035 Review of Systems Const Details: - General: Reports fatigue, lack of appetite, and feeling unwell. - Respiratory: Reports dyspnea and dry cough. - Gastrointestinal: Reports chronic diarrhea, denies abdominal pain. - Genitourinary: Denies dysuria or urinary symptoms. All systems reviewed & are unremarkable except as noted in HPI and below Physical exam (Primary Care) Vital Signs: Last Vital Signs Temp 97.8 F 02/02/25 08:57 Pulse 58 02/02/25 08:57 Resp 16 02/02/25 08:57 BP 164/69 H 02/02/25 08:57 Pulse Ox 96 02/02/25 08:57 Oxygen Delivery Method Room Air 02/02/25 08:57 Care Plan Goal for BP management: <140/90 at Goal BMI result Body Mass Index 29.9 BMI Assessment/Plan discussion: High BMI High, discussed plan: lifestyle, weight reduction, dietary, physical activity, alcohol moderation and other Tobacco/Smoking Status: Tobacco use Status Tobacco use date assessed 02/02/25 02/02/25 08:59 Patient Tobacco Use Status Former Tobacco user 02/02/25 08:59 Tobacco use type Cigarette 02/02/25 08:59 PHQ-9: PHQ-9 Score PHQ-9: Total score 12 02/02/25 09:17 Depression Screening Interpretation: Positive Depression Screening Follow-up: Existing condition, In treatment and Other (referral placed for psychiatrist) Thrive Assessment: Date of Thrive Assessment Date Thrive assessed 11/05/24 02/02/25 08:59 Const Other: Appearance: Alert. Oriented X3. No acute distress. Head: Normal external exam. Normocephalic. Atraumatic. Eyes: Pupils are equal, round, and reactive to light. Extraocular movements intact. Conjunctiva and sclera normal. Eyelids normal. Ears: External auditory canal normal. Tympanic membranes normal. Throat: Pharynx normal. Uvula midline. Moist mucous membranes. Neck: Normal inspection. Neck supple. Full range of motion. No adenopathy. Thyroid Normal. No meningeal signs. No neck mass noted. Cardiovascular: Normal heart rate and rhythm. Heart sound normal. No murmurs noted. Pulses normal throughout. Respiratory: No respiratory distress. Painless inspiration. Breath sounds slightly diminished in the right lower lobe. No wheezes/rales/rhonchi noted. Chest nontender. No accessory muscle usage noted or decreased air movement noted. Abdomen: Soft and nontender. No distention noted. No organomegaly noted. Back: No costovertebral angle tenderness. Full range of motion noted. Skin: Skin warm and dry. Normal skin color. Normal skin turgor. No rashes/lesions/lacerations noted. Extremities: No lower extremity edema. Extremities exhibit normal range of motion. Extremities nontender. Neuro: Oriented X 3. No motor deficit. No sensory deficit. Reflexes normal. Results Reviewed Results Reviewed: - Labs: Complete blood count normal, mild elevation in liver enzymes (AST and ALT at 32), negative tests for COVID-19, influenza, RSV, and strep. - Imaging: Chest x-ray confirmed pneumonia. Coding Level of Care Code Est Pt Level 4 (31186) Complex EM visit Add On G2211 Diagnoses Encounter for follow-up examination after completed treatment for conditions other than malignant neoplasm Z09 Pneumonia J18.9 Laterality: left Lung location: unspecified part of lung Pneumonia type: due to unspecified organism Chronic diarrhea K52.9 Additional Codes LINNEA-7 Assessment Billing - LINNEA-7 Assessment Tool: LINNEA-7 Assessment 95126 ([id number]) PHQ-9 - 86881 - PHQ-9 Billing: Yes ([id number]) Assessment & Plan Assessment & Plan (1) Encounter for follow-up examination after completed treatment for conditions other than malignant neoplasm: Code(s): Z09 - Encounter for follow-up examination after completed treatment for conditions other than malignant neoplasm Category: Medical Plan: The patient was diagnosed with pneumonia in the emergency room, with an oxygen saturation of 95%. She was treated with doxycycline and prednisone, but continues to experience fatigue, dyspnea, and dry cough. A repeat chest x-ray and blood work, including a stool sample to rule out Clostridioides difficile infection, were ordered to assess the current status and guide further treatment. (2) Pneumonia: Code(s): J18.9 - Pneumonia, unspecified organism Category: Medical Qualifiers: Laterality: left Lung location: unspecified part of lung Pneumonia type: due to unspecified organism Qualified Code(s): J18.9 - Pneumonia, unspecified organism Plan: The patient was diagnosed with pneumonia in the emergency room, with an oxygen saturation of 95%. She was treated with doxycycline and prednisone, but continues to experience fatigue, dyspnea, and dry cough. A repeat chest x-ray and blood work, including a stool sample to rule out Clostridioides difficile infection, were ordered to assess the current status and guide further treatment. (3) Chronic diarrhea: Code(s): K52.9 - Noninfective gastroenteritis and colitis, unspecified Category: Medical Plan: The patient reports chronic diarrhea, which worsens with food intake, and denies any abdominal pain. A stool sample was ordered to rule out Clostridioides difficile infection, which can occur after antibiotic use. Plan Plan Patient was informed and verbally consented to the use of an ambient scribe for clinic note documentation during this visit. 1. Pneumonia The patient was diagnosed with pneumonia in the emergency room, with an oxygen saturation of 95%. She was treated with doxycycline and prednisone, but continues to experience fatigue, dyspnea, and dry cough. A repeat chest x-ray and blood work, including a stool sample to rule out Clostridioides difficile infection, were ordered to assess the current status and guide further treatment. 2. Allergic Reaction To Amoxicillin The patient has a documented allergy to amoxicillin, characterized by severe perirectal redness and inflammation. Alternative antibiotics, such as doxycycline, are used to avoid allergic reactions. 3. Chronic Diarrhea The patient reports chronic diarrhea, which worsens with food intake, and denies any abdominal pain. A stool sample was ordered to rule out Clostridioides difficile infection, which can occur after antibiotic use. During the visit, I discussed with the patient the need for a repeat chest x-ray and blood work to evaluate her current condition and determine if further antibiotics are necessary. We also discussed the possibility of Clostridioides difficile infection due to her chronic diarrhea and recent antibiotic use, and a stool sample was ordered to investigate this. I advised the patient to follow up with the results and to contact us if her symptoms worsen or if she experiences any new symptoms. Orders: Orders Complete Blood Count no Diff Today J39.9 - Disease of upper respiratory tract, unspecified Comprehensive Met. Panel Today Z00.00 - Encounter for general adult medical examination without abnormal findings C Reactive Protein Today Z00.00 - Encounter for general adult medical examination without abnormal findings CDiff Gene PCR Today R10.9 - Unspecified abdominal pain Magnesium Today Z00.00 - Encounter for general adult medical examination without abnormal findings XR chest 2V Today J39.9 - Disease of upper respiratory tract, unspecified Patient Instructions: - Follow up with the results of the chest x-ray and blood work. - Monitor symptoms and contact the clinic if symptoms worsen or new symptoms develop. - Complete the stool sample test as instructed.
[2025-02-02 08:57] VITALS: BP 164/69; PULSE 58; RESP 16; TEMP 36.6; O2SAT 96; BMI 29.9
== END 2025-02-02 09:34 | disposition home or self-care (01) ==
LOC: HO.HMCSH 09:01
PROVIDERS: PCP Physician Assistant Medical; Visit Provider Physician Assistant Medical
DX: Z09 Encounter for follow-up examination after completed treatment for conditions other than malignant neoplasm (principal); J18.9 Pneumonia, unspecified organism; K52.9 Noninfective gastroenteritis and colitis, unspecified

== ENCOUNTER → 2025-02-02 10:22 | Outpatient (BNV) | payer MEDICARE, SELFPAY | PROVIDERS: PCP Physician Assistant Medical; Visit Provider Radiology Diagnostic Radiology | DX: J84.9 Interstitial pulmonary disease, unspecified (principal) | CPT/HCPCS: 71046 ==

== ENCOUNTER 2025-02-12 08:38 | Outpatient (REF) | payer MEDICARE, SELFPAY ==
--- NOTE | ~2025-02-12 | MM_ITS ---
EXAMINATION: DXA BONE DENSITY AXIAL HISTORY: M81.0 - Age-related osteoporosis without current pathological fracture TECHNIQUE: [employer] Dual energy absorptiometry (DEXA) of the lumbar spine, total left hip, and femoral neck was performed. COMPARISON: Comparison is made with the prior examination dated 05/04/2021. FINDINGS: The bone mineral density of the lumbar spine is 1.375 g/cm2, corresponding to a T-score of 16, and a Z-score of 2.7. This is indicative of normal bone mineral density. This represents a BMD change of 3.4% compared to the prior exam. This is statistically significant. The bone mineral density of the left total hip is 0.938 g/cm2, corresponding to a T-score of -0.6, and a Z-score of 0.7. This is indicative of normal bone mineral density. This represents a BMD change of -1.8% compared to the prior exam. This is not statistically significant. The bone mineral density of the left femoral neck is 0.859 g/cm2, corresponding to a T-score of -1.3, and a Z-score of 0.2. This is indicative of osteopenia. This represents a BMD change of -1.5% compared to the prior exam. FRACTURE RISK: The FRAX index suggests a ten year probability of major osteoporotic fracture of 16.7%, and of hip fracture 3.6%. MM/XR DEXA axial skeleton IMPRESSION: Based on bone mineral density, and according to World Health Organization (WHO) criteria, the diagnosis is consistent with osteopenia. Statistically, 68% of repeat scans fall within 1 SD (+/- 0.010 g/cm2 for AP spine L1-L4) and 1 SD (+/- 0.012 g/cm2 for femur total) FRAX is a trademark of the [employer]'s [place] for Metabolic Bone Disease, a World Health Organization (WHO) Collaborating Center. Electronically signed by: Chaim Bazzi MD 02/12/2025 09:45 AM EDT
== END 2025-02-12 08:39 | disposition home or self-care (01) ==
LOC: HO.MAMMO 08:38
PROVIDERS: PCP Physician Assistant Medical; Visit Provider Physician Assistant Medical
DX: Z12.31 Encounter for screening mammogram for malignant neoplasm of breast (principal); M81.0 Age-related osteoporosis without current pathological fracture
CPT/HCPCS: 77063; 77067; 77080

== ENCOUNTER → 2025-02-12 09:15 | Outpatient (BNV) | payer MEDICARE, SELFPAY | PROVIDERS: PCP Physician Assistant Medical; Visit Provider Radiology Diagnostic Radiology | DX: E28.39 Other primary ovarian failure (principal) | CPT/HCPCS: 77080 ==

== ENCOUNTER 2025-05-08 09:01 | Outpatient (AMB) | payer MEDICARE, SELFPAY ==
[2025-05-08 09:02] VITALS: BP 168/69; PULSE 60; RESP 14; TEMP 36.3; O2SAT 97; BMI 30.5
--- NOTE | 2025-05-08 09:02 | A.OFFPC_ITS ---
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 Accompanied by: Self / Same As Patient Allergies amoxicillin (From AUGMENTIN) Allergy (Unknown, Verified 05/08/25 10:03) SEVERE SHARRON-RECTAL REDNESS,INFLAMMATION aspirin (ASPIRIN) Allergy (Unknown, Verified 05/08/25 10:03) FACIAL SWELLING clavulanic acid (From AUGMENTIN) Allergy (Unknown, Verified 05/08/25 10:03) SEVERE SHARRON-RECTAL REDNESS,INFLAMMATION ibuprofen Allergy (Unknown, Verified 05/08/25 10:03) anaphylaxis Iodinated Contrast Media (IV CONTRAST) Allergy (Unknown, Verified 05/08/25 10:03) RASH,SOB Dhtlhtj-YHX-SuC Reductase Inhibitor (UYVMGET-STB-SBN REDUCTASE INHIBITOR) Allergy (Unknown, Verified 05/08/25 10:03) MUSCLE ACHING Sulfa (Sulfonamide Antibiotics) (SULFA (SULFONAMIDE ANTIBIOTICS)) Allergy (Unknown, Verified 05/08/25 10:03) RASH,SOB, ANGIOEDEMA animal dander Allergy (Unknown, Uncoded 05/08/25 10:03) Unknown pollen Allergy (Unknown, Uncoded 05/08/25 10:03) Unknown shellfish Allergy (Unknown, Uncoded 05/08/25 10:03) breathing difficulty, rash Medication List - Last Reconciled 05/08/25 by Nan Chaney PA-C albuterol sulfate 90 mcg/actuation 90 mcg inhalation Q4-6H PRN alendronate (Fosamax) 70 mg PO QWEEK 90 days cetirizine 10 mg PO DAILY cholestyramine (with sugar) 4 gram ea PO ezetimibe (Zetia) 10 mg PO DAILY fluticasone propion-salmeterol 250-50 mcg/dose (Wixela Inhub) 1 ea inhalation BID levothyroxine 175 mcg PO DAILY metoprolol succinate ER 50 mg PO BEDTIME pantoprazole 40 mg PO DAILY MDD GERD rivaroxaban (Xarelto) 20 mg PO BEDTIME rizatriptan 10 mg PO DAILY PRN sertraline 50 mg PO DAILY Tobacco use date assessed: 02/02/25 Dental Screening Dental Screen Date: 11/05/24 HPI HPI Comments History of Present Illness Details History of Present Illness The patient is a 74 year old female presenting for a six-month follow-up. She reports no recent falls or hospitalizations within the past year, though she did have an emergency room visit for pneumonia in December, from which she has recovered. She also had some associated diarrhea at that time which has since resolved. Review of lab work from October 2024 revealed a hemoglobin A1c of 5.5%, indicating she is borderline for prediabetes. Her triglycerides were 181 mg/dL. A statin was prescribed six months ago for her cholesterol, but she has not yet started taking it due to concerns about timing it with her cholestyramine, which she takes for diarrhea as advised by her printing supplies sales representative. She states she has reduced her cheese intake, which has slightly improved her cholesterol levels from the previous year. Her CBC, kidney function, calcium, magnesium, and liver enzymes were normal. Her vitamin B12, vitamin D, and folate levels were fine. A bone density scan revealed osteopenia, and Fosamax was prescribed, which she has not started taking. She reports taking vitamin D and calcium supplements daily. She has a history of osteoarthritis. Her last mammogram on 02/12/2025 was negative. She had a colonoscopy with Dr. Retana on 12/10/2024, which was clear with no polyps, and was told she does not need another one. Her current medications include metoprolol for heart rhythm, levothyroxine for her thyroid, and cholestyramine for diarrhea. Social History - Nutrition: Reports decreased cheese co nsumption to help manage cholesterol. [facility], [facility] Medical History (Updated 05/08/25 @ 10:05 by Nan Chaney PA-C) Health maintenance examination Osteoporosis Osteopenia of femoral neck Chronic diarrhea Encounter for follow-up examination after completed treatment for conditions other than malignant neoplasm Upper respiratory disease Obesity with body mass index (BMI) of 30.0 to 39.9 Calcification of aortic valve Mitral annular calcification Tricuspid valve regurgitation Sleep apnea Migraine headache with aura Asthma Depression History of mammogram (~02/12/25) Osteoarthritis Diverticulosis Environmental allergies Restless leg syndrome Obstructive sleep apnea Cecal polyp Menopause Hiatal hernia GERD (gastroesophageal reflux disease) Mild hypercholesterolemia Hypothyroidism Establishing care with new doctor, encounter for Persistent atrial fibrillation Surgical History History of colonoscopy (~12/10/24) H/O wisdom tooth extraction History of partial colectomy S/P excision of lipoma History of tonsillectomy History of cardiac radiofrequency ablation History of colon resection Family History Father CAD (coronary artery disease) Afib Mother Afib Brother Afib Social History Housing: House Are you a primary residential caregiver to a significant other at home: No Do you presently have visiting nurse or other home services: No Alcohol intake: current Alcohol intake frequency: a few times a week Alcohol type: wine Patient Tobacco Use Status: Former Tobacco user Tobacco use type: Cigarette service: No Current occupational status: retired Cognitive needs: No Hearing needs: No Vision needs: Yes (reading glasses) Questionnaire PHQ-9 Over the last 2 weeks, how often have you been bothered by any of the following problems? 1. Little interest or pleasure in doing things: more than half the days 2. Feeling down, depressed, or hopeless: nearly every day 3. Trouble falling or staying asleep, or sleeping too much: nearly every day 4. Feeling tired or having little energy: nearly every day 5. Poor appetite or overeating: not at all 6. Feeling bad about yourself - or that you are a failure or have let yourself or your family down: several days 7. Trouble concentrating on things, such as reading the newspaper or watching television: not at all 8. Moving or speaking so slowly that other people could have noticed. Or the opposite - being so fidgety or restless that you have been moving around a lot more than usual: not at all 9. Thoughts that you would be better off or of hurting yourself in some way: not at all Total score: 12 Depression Screening Interpretation: Positive Depression Screening Follow-up: Existing condition, In treatment and Other (referral placed for psychiatrist) Depression Screening Done: Yes 89772 - PHQ-9 Billing: Yes Source: Developed by Drs. Chaim L. Meseret, Ok Cordon and colleagues, with an educational latonia from [employer]. Thrive Questionnaire Date Thrive assessed: 11/05/24 I am a: Patient What is your living situation today?: I have a steady place to live Within the past 12 months, did the food you bought not last and you didn't have the money to get more?: Never true Within the past 12 months, did you worry whether your food would run out before you got money to buy more?: Never true Do you have trouble paying for medicines?: No Do you have trouble getting transportation to medical appointments?: No Do you have trouble paying your heating and electricity bill?: No Do you have trouble taking care of your child, family member or friend?: No Do you have trouble with day-to-day activities such as bathing, preparing meals, shopping, managing finances, etc.?: No Are you currently unemployed and looking for a job?: No Are you interested in more education?: No Please select the resources that you would like help with: None THRIVE Score: 0 AUDIT C Alcohol Use Questionnaire (AUDIT-C) 1. How often do you have a drink containing alcohol?: 2-3 times a week 2. How many drinks containing alcohol do you have on a typical day when you are drinking?: 1 or 2 3. How often do you have six or more drinks on one occasion?: Never Total Score: 3 Score Reviewed/Action Taken: No LINNEA-7 AMB Questionnaire LINNEA-7 Date LINNEA - 7 assessed: 11/05/24 Feeling nervous, anxious, or on edge: 3 = Nearly every day Not being able to stop or control worryin = Several days Worrying too much about different things: 1 = Several days Trouble relaxin = Not at all Being so restless that it is hard to sit still: 0 = Not at all Becoming easily annoyed or irritable: 1 = Several days Feeling afraid as if something awful might happen: 1 = Several days Total LINNEA-7 score (0-4 normal; 5-9 mild; 10-14 moderate; 15-21 severe): 7 Source: Developed by Lo Vaz Kurt Kroenke and colleagues, with an educational latonia from [employer]. LINNEA-7 Assessment Billing LINNEA-7 Assessment Tool: LINNEA-7 Assessment 62922 Review of Systems Narrative Review of Systems - General: Denies specific complaints, reports feeling generally okay. - Musculoskeletal: Reports osteoarthritis. Const All systems reviewed & are unremarkable except as noted in HPI and below Physical exam (Primary Care) Vital Signs: Last Vital Signs Temp 97.4 F 05/08/25 09:02 Pulse 60 05/08/25 09:02 Resp 14 05/08/25 09:02 BP 168/69 H 05/08/25 09:02 Pulse Ox 97 05/08/25 09:02 Oxygen Delivery Method Room Air 05/08/25 09:02 Care Plan Goal for BP management: <140/90 at Goal patient to continue metoprolol extended release 50 mg at bedtime BMI result Body Mass Index 30.5 Tobacco/Smoking Status: Tobacco use Status Tobacco use date assessed 02/02/25 05/08/25 09:08 Patient Tobacco Use Status Former Tobacco user 05/08/25 09:08 Tobacco use type Cigarette 05/08/25 09:08 PHQ-9: PHQ-9 Score PHQ-9: Total score 12 05/08/25 09:08 Depression Screening Interpretation: Positive Depression Screening Follow-up: Existing condition, In treatment and Other (referral placed for psychiatrist) Thrive Assessment: Date of Thrive Assessment Date Thrive assessed 11/05/24 05/08/25 09:08 Narrative Physical Exam Appearance: Alert. Oriented X3. No acute distress. Head: Normal external exam. Normocephalic. Atraumatic. Eyes: Pupils are equal, round, and reactive to light. Extraocular movements intact. Conjunctiva and sclera normal. Eyelids normal. Throat: Pharynx normal. Uvula midline. Moist mucous membranes. Neck: Normal inspection. Neck supple. Full range of motion. Cardiovascular: Normal heart rate and rhythm. Heart sound normal. No murmurs noted. Pulses normal throughout. Blood pressure recorded at 137/67. Respiratory: No respiratory distress. Painless inspiration. Breath sounds normal. No wheezes/rales/rhonchi noted. Chest nontender. No accessory muscle usage noted or decreased air movement noted. Back: Full range of motion noted. Skin: Skin warm and dry. Normal skin color. Extremities: Extremities exhibit normal range of motion. Results Reviewed Results Reviewed: Results - Labs (CBC): Normal since 2023. - Labs (CMP): Sodium, potassium, chloride, carbon dioxide, anion gap, kidney function, calcium, magnesium, liver enzymes, total protein, and albumin were normal. - Labs (Hemoglobin A1c): 5.5% on 11/05/2024. - Labs (Lipid Panel): Triglycerides were 181 mg/dL in October. - Labs (Inflammatory Markers): One marker was slightly elevated when she was sick with pneumonia. - Labs (Vitamins): B12, vitamin D, and folate were fine six months ago. - Labs (Thyroid): Fine six months ago. - Labs (Urine Microalbumin): Negative. - Imaging (Bone Density): Showed osteopenia. - Imaging (Mammogram): Negative on 02/12/2025. - Diagnostics (Colonoscopy): Performed on 12/10/2024, showed no polyps. Coding Level of Care Code Est Pt Level 4 (93297) Add On Problem Visit Only Diagnoses Mild hypercholesterolemia E78.00 Osteopenia of femoral neck M85.859 Osteoporosis M81.0 Health maintenance examination Z00.00 Additional Codes LINNEA-7 Assessment Billing - LINNEA-7 Assessment Tool: LINNEA-7 Assessment 75488 ([id number]) PHQ-9 - 71566 - PHQ-9 Billing: Yes ([id number]) Time Spent (min) 50 Assessment & Plan Assessment & Plan (1) Mild hypercholesterolemia: Code(s): E78.00 - Pure hypercholesterolemia, unspecified Category: Medical Plan: The patient has elevated triglycerides at 181 and elevated LDL cholesterol. She was prescribed a statin six months ago but has not started it due to concerns about interactions with her cholestyramine. Educated on the importance of taking the cholesterol medication, emphasizing that it can be taken at bedtime to avoid interaction with her morning dose of cholestyramine. The patient agreed to start the statin medication. Plan to recheck lipid panel in October after she has been on the medication. (2) Osteopenia of femoral neck: Code(s): M85.859 - Other specified disorders of bone density and structure, unspecified thigh Category: Medical Plan: The patient has a diagnosis of osteopenia based on a prior bone density scan. She has not started the prescribed Fosamax. She has been taking vitamin D and calcium supplements daily, and was encouraged to continue this regimen to strengthen her bones and prevent progression to osteoporosis and fractures. No repeat bone scan is needed for another 2-3 years. (3) Osteoporosis: Code(s): M81.0 - Age-related osteoporosis without current pathological fracture Category: Medical (4) Health maintenance examination: Code(s): Z00.00 - Encounter for general adult medical examination without abnormal findings Category: Medical Plan: The patient's last mammogram was negative, and she will follow up annually. Her last colonoscopy was clear, and her printing supplies sales representative advised no further colonoscopies are needed. The patient's A1c of 5.5% places her in the prediabetic range. Inflammatory markers were elevated previously when she was ill, and she currently has osteoarthritis. Orders were placed for fasting labs to be done in October before her next visit, including a CBC, CMP, hemoglobin A1c, thyroid panel, lipid panel, magnesium, vitamin D, B12, folate, urinalysis, and inflammatory markers (CRP, ESR). She requires a refill for metoprolol, which will be sent as a 90-day supply with 3 refills. She will follow up in six months for a physical. Plan Plan Patient was informed and verbally consented to the use of an ambient scribe for clinic note documentation during this visit. 1. Hypercholesterolemia The patient has elevated triglycerides at 181 and elevated LDL cholesterol. She was prescribed a statin six months ago but has not started it due to concerns about interactions with her cholestyramine. Educated on the importance of taking the cholesterol medication, emphasizing that it can be taken at bedtime to avoid interaction with her morning dose of cholestyramine. The patient agreed to start the statin medication. Plan to recheck lipid panel in October after she has been on the medication. 2. Osteopenia The patient has a diagnosis of osteopenia based on a prior bone density scan. She has not started the prescribed Fosamax. She has been taking vitamin D and calcium supplements daily, and was encouraged to continue this regimen to strengthen her bones and prevent progression to osteoporosis and fractures. No repeat bone scan is needed for another 2-3 years. 3. Health Maintenance The patient's last mammogram was negative, and she will follow up annually. Her last colonoscopy was clear, and her printing supplies sales representative advised no further co lonoscopies are needed. The patient's A1c of 5.5% places her in the prediabetic range. Inflammatory markers were elevated previously when she was ill, and she currently has osteoarthritis. Orders were placed for fasting labs to be done in October before her next visit, including a CBC, CMP, hemoglobin A1c, thyroid panel, lipid panel, magnesium, vitamin D, B12, folate, urinalysis, and inflammatory mar kers (CRP, ESR). She requires a refill for metoprolol, which will be sent as a 90-day supply with 3 refills. She will follow up in six months for a physical. Discussion Notes I advised the patient that she is doing well overall. We discussed her lab results, noting the borderline prediabetes with an A1c of 5.5 and elevated cholesterol, particularly the LDL. I strongly encouraged her to start the statin medication that was prescribed six months ago, explaining its importance in preventing events like a heart attack, and clarified that she can take it at bedtime to avoid interaction with her morning dose of cholestyramine. Regarding her osteopenia, I reassured her that continuing her daily vitamin D and calcium is a good alternative for now since she is not taking the prescribed Fosamax, a nd this will help strengthen her bones. We reviewed her preventative screenings; she is up to date on her mammogram and has completed her colonoscopy screenings. I informed her that lab orders have been placed in the system for her to complete in October before her next visit, which will be a physical in six months. A 90-day refill for metoprolol was also discussed and will be provided.Patient Instructions - Please start taking the cholesterol medication that was prescribed. - You can take it at bedtime to avoid any issues with the medication you take for diarrhea in the morning. - Continue taking your vitamin D and calcium supplements every day to help keep your bones strong. - Continue your efforts with diet, like eating less cheese, as it has helped your cholesterol numbers a little bit. - Before your next appointment in six months, please go to the lab to have your blood work done. - The lab orders are already in the computer, so you do not need a paper order. - Please make sure you are fasting (nothing to eat or drink except water) before the blood test. - A refill for your metoprolol medication will be sent to your pharmacy. - Your next mammogram is due in one year. - You do not need another bone density scan for two to three years. - You do not need any more colonoscopies. - Please schedule a follow-up appointment for a physical in six months. Orders: Orders Lipid Panel Today Z00.00 - Encounter for general adult medical examination without abnormal findings Vitamin B12 and Folate Today Z00.00 - Encounter for general adult medical examination without abnormal findings TSH reflex Free T4 Today Z00.00 - Encounter for general adult medical examination without abnormal findings Complete Blood Count Auto Diff Today Z00.00 - Encounter for general adult medical examination without abnormal findings C Reactive Protein Today Z00.00 - Encounter for general adult medical examination without abnormal findings Hemoglobin A1c Today Z00.00 - Encounter for general adult medical examination without abnormal findings Magnesium Today Z00.00 - Encounter for general adult medical examination without abnormal findings Vitamin D 25-OH Total Today Z00.00 - Encounter for general adult medical examination without abnormal findings Comprehensive [place]. Panel Fast Today Z00.00 - Encounter for general adult medical examination without abnormal findings Erythrocyte Sedimentation Rate Today Z00.00 - Encounter for general adult medi juan examination without abnormal findings UA CC w/rflx Micro + Cult Today Z00.00 - Encounter for general adult medical examination without abnormal findings Medications: New metoprolol succinate ER 50 mg PO BEDTIME 90 tabs 3RF Patient Instructions: Patient Instructions - Please start taking the cholesterol medication that was prescribed. - You can take it at bedtime to avoid any issues with the medication you take for diarrhea in the morning. - Continue taking your vitamin D and calcium supplements every day to help keep your bones strong. - Continue your efforts with diet, like eating less cheese, as it has helped your cholesterol numbers a little bit. - Before your next appointment in six months, please go to the lab to have your blood work done. - The lab orders are already in the computer, so you do not need a paper order. - Please make sure you are fasting (nothing to eat or drink except water) before the blood test. - A refill for your metoprolol medication will be sent to your pharmacy. - Your next mammogram is due in one year. - You do not need another bone density scan for two to three years. - You do not need any more colonoscopies. - Please schedule a follow-up appointment for a physical in six months.
[2025-05-08 10:02] VITALS: BP 137/67
== END 2025-05-08 09:27 | disposition home or self-care (01) ==
LOC: HO.HMCSH 09:02
PROVIDERS: PCP Physician Assistant Medical; Visit Provider Physician Assistant Medical
DX: E78.00 Pure hypercholesterolemia, unspecified (principal); M85.859 Other specified disorders of bone density and structure, unspecified thigh; M81.0 Age-related osteoporosis without current pathological fracture; Z00.00 Encounter for general adult medical examination without abnormal findings

== ENCOUNTER → 2025-05-08 09:01 | Outpatient (BNVA) | payer MEDICARE, SELFPAY | PROVIDERS: PCP Physician Assistant Medical; Visit Provider Physician Assistant Medical | DX: M81.0 Age-related osteoporosis without current pathological fracture (principal); E78.00 Pure hypercholesterolemia, unspecified; M85.859 Other specified disorders of bone density and structure, unspecified thigh; Z13.31 Encounter for screening for depression | CPT/HCPCS: 96127; 99212 ==